=== PATIENT | male | born 1935 | race Caucasian/White ===

== ENCOUNTER 2020-06-27 09:59 | Emergency (ER) | payer MEDICARE, OTHER ==
[~2020-06-27] VITALS: Ht 180.3 cm; Wt 50.8 kg
--- NOTE | 2020-06-27 10:19 | Emergency Department Note ---
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 Mode: [place] Additional Treatment [employer] MANAGER: NONE History limited by: other (dementia ) Onset (how long ago): hour(s) (1) Location: L forehead Quality: ache Radiation: Reports non-radiation Severity: mild Onset quality: sudden Duration (how long): hour(s) (1) Timing of current episode: constant Progression: unchanged Context: Reports trauma/injury (pt is demented, non ambulatory, fell forward from low chair, sent in for CT head); Denies recent illness, Denies recent immobilization Relieving factors: none Exacerbating factors: none Treatments prior to arrival: none Past Medical/Family History Physician Review I have reviewed the patient's past medical and family history. Any updates have been documented here. Past Medical History Recent Fever: No Clinical Suspicion of Infectio: No New/Unexplained Change in Ment: No Review of Systems ROS Narrative Unable to obtain ROS: Unable to obtain due to, other (dementia ) Physical Exam Related Data Allergies: Coded Allergies: No Known Allergies (Unverified , 06/27/20) Triage Vital Signs Vital Signs Date Time Temp Pulse Resp B/P (MAP) Pulse Ox O2 Delivery O2 Flow Rate FiO2 06/27/20 10:08 88 18 145/79 100 Room Air Physical Exam CONSTITUTIONAL Constitutional: Present well-developed, Present well-nourished, Present other (chronically ill) HENT HENT: Present normocephalic, Present other (1cm skin tear to L forehead ) EYES Eyes: Reports PERRL, Reports conjunctivae normal NECK Neck: Present ROM normal, Present supple PULMONARY Pulmonary: Present effort normal, Present breath sounds normal CARDIOVASCULAR Cardiovascular: Present regular rhythm GASTROINTESTINAL Abdominal: Present soft, Present nontender GENITOURINARY SKIN Skin: Present warm, Present other (2cm superficial skin tear to L hand dorsum ) MUSCULOSKELETAL Musculoskeletal: Present other (bilateral LE with contractures, no deformities or pain on palpation ) NEUROLOGICAL Neurological: Present alert, Present other (moving all ext x 4 ) PSYCHOLOGICAL Assessment & Plan Medical Decision Making MDM 85y/o with mechanical fall, will CT head, skin tears repaired by outside facility. Reassessment Reassessment No bleed, no acute abnormality Assessment & Plan Final Impression: (1) Closed head injury (2) Skin tear Depart Disposition: HOME, SELF-CARE Last Vital Signs Date Time Temp Pulse Resp B/P (MAP) Pulse Ox O2 Delivery O2 Flow Rate FiO2 06/27/20 10:08 88 18 145/79 100 Room Air CALVIN OLIVIA MD Jun 27, 2020 10:18
--- OUTSIDE RECORDS SUMMARY | 2020-06-27 10:28 | XMS REPORT | Clinical Summary ---
Author Author [facility] Organization [place] [facility] Address Unknown Phone Unavailable Care Team Providers Care Real Estate Portfolio Manager Name Role Phone Scarlett Meier MD PCP [phone] Allergies Comments Active Allergy Reactions Severity Noted Date Fluoxetine Unknown 05/13/2020 Reaction Simvastatin Unknown 05/13/2020 Reaction Medications End Date Status Medication Sig Dispensed Refills Start Date Active acetaminophen (TYLENOL) Take 650 mg 0 325 MG tablet by mouth every 6 (six) hours as needed for fever. do Active aspirin (ECOTRIN) 81 MG Take 81 mg by 0 enteric coated tablet mouth daily. Active docusate sodium (COLACE) Take 100 mg 0 100 MG capsule by mouth daily. Active tamsulosin (FLOMAX) 0.4 Take 0.4 mg 0 mg capsule by mouth daily with dinner. Active polyethylene glycol Take 17 g by 0 (MIRALAX) 17 gram packet mouth daily. Active lidocaine (XYLOCAINE) 2 % Apply 0 jelly topically 3 (three) times a day. Topically to perineal area Active megestroL (MEGACE) 400 Take 400 mg 0 mg/10 mL (10 mL) by mouth 2 suspension (two) times a day. Active venlafaxine (EFFEXOR) Take 37.5 mg 0 37.5 MG tablet by mouth 2 (two) times a day. Active cholecalciferol, vitamin Take 2,000 0 D3, 50 mcg (2,000 unit) Units by capsule capsule mouth daily. Active cholecalciferol, vitamin Take 1,000 0 D3, 1,000 unit tablet Units by mouth 2 (two) times a day. 05/17/2020 Discontinued (Stop Taking at Discharge) mirtazapine (REMERON) 15 Take 7.5 mg 0 MG tablet by mouth nightly. 05/27/2020 amoxicillin-pot Take 1 tablet 24 tablet 0 05/15/20 2 clavulanate (AUGMENTIN) by mouth 2 0 875-125 mg per tablet (two) times a day for 12 days. 05/24/2020 doxycycline (VIBRAMYCIN) Take 1 0 05/17 100 MG capsule capsule (100 0 mg total) by mouth 2 (two) times a day with meals for 7 days. 06/16/2020 metoprolol tartrate Take 0.5 30 tablet 0 (LOPRESSOR) 25 mg tablet tablets (12.5 0 mg total) by mouth 2 (two) times a day for 30 days. Active Problems Problem Noted Date Urinary tract infection associated with indwelling ur ethral catheter 05/15/2020 Altered mental status 05/13/2020 Encounters Care Team Description Date Type Specialty Siva Marques MD Mougouris, Taso, MD Urinary tract infection associated with indwelling urethral catheter, initial encounter ([facility]) (Primary Dx); Altered mental status, unspecified altered mental status type; Sepsis due to undetermined organism ([facility]); Elevated troponin I level; HELEN (acute kidney injury) ([facility]) 05/13/2020 [facility] Internal Ga dicine - Encounter 05/17/2020 05/13/2020 Travel after 06/27/2019 Social History Date Tobacco Use Types Packs/Day Years Used Unknown If Ever Smoked Tobacco Cessation: Counseling Given: Yes Drinks/Week oz/Week Comments Alcohol Use Defer Sex Assigned at Date Recorded Not on file Industry Job Start Date Occupation Not on file Not on file Not on file Travel End Travel History Travel Start No recent travel history available. Last Filed Vital Signs Reading Time Taken Comments Vital Sign 113/58 05/17/2020 10:29 AM CDT Blood Pressure 74 05/17/2020 2:00 PM CDT Pulse 37 C (98.6 F) 05/17/2020 10:29 AM CDT Temperature 16 05/17/2020 2:00 PM CDT Respiratory Rate 99% 05/17/2020 2:00 PM CDT Oxygen Saturation - - Inhaled Oxygen Concentration 71.7 kg (158 lb 1.6 oz) 05/15/2020 5:48 AM CDT Weight 177.8 cm (5' 10") 05/13/2020 10:18 AM CDT Height 22.68 05/13/2020 10:18 AM CDT Body Mass Index Plan of Treatment Health Maintenance Due Date Last Done Comments DIABETIC RETINAL EYE EXAM 1935 DIABETIC FOOT EXAM 1945 SHINGLES VACCINES (#1) 1985 65+ PNEUMOCOCCAL VACCINE 2000 (1 of 2 - PCV13) INFLUENZA VACCINE 08/04/2020 07/19/2014 Procedures Comments Procedure Name Priority Date/Time Associated Diag nosis CBC HEMOGRAM Routine 05/17/2020 5:25 AM CDT CBC HEMOGRAM Routine 05/16/2020 5:14 AM CDT ESTIMATED GFR Routine 05/15/2020 6:04 AM CDT MAGNESIUM LEVEL Routine 05/15/2020 6:04 AM CDT BASIC METABOLIC PANEL Routine 05/15/2020 6:04 AM CDT HC COMPLETE BLD COUNT Routine 05/15/2020 W/AUTO DIFF 6:04 AM CDT ECG 12-LEAD Routine 05/14/2020 9:33 PM CDT TTE COMPLETE, WO Routine 05/14/2020 CONTRAST, W DOPPLER 12:54 PM CDT (17419) PREALBUMIN LEVEL Routine 05/14/2020 6:00 AM CDT TROPONIN Timed 05/14/2020 6:00 AM CDT ANTI XA, UNFRACTIONATED Timed 05/14/2020 5:00 AM CDT ESTIMATED GFR Routine 05/14/2020 5:00 AM CDT THYROID STIMULATING Routine 05/14/2020 HORMONE 5:00 AM CDT B NATRIURETIC PEPTIDE Routine 05/14/2020 5:00 AM CDT LIPID PANEL Routine 05/14/2020 5:00 AM CDT COMPREHENSIVE METABOLIC Routine 05/14/2020 PANEL 5:00 AM CDT HC COMPLETE BLD COUNT Routine 05/14/2020 W/AUTO DIFF 5:00 AM CDT ECG 12-LEAD Routine 05/14/2020 4:55 AM CDT ANTI XA, UNFRACTIONATED Routine 05/13/2020 9:40 PM CDT TROPONIN Timed 05/13/2020 9:40 PM CDT LACTIC ACID LEVEL, SEPSIS Timed 05/13/2020 - NOW AND REPEAT 2X EVERY 9:40 PM CDT 3 HOURS ECG 12-LEAD Routine 05/13/2020 8:[address] ABDOMEN PELVIS WO STAT 05/13/2020 CONTRAST 5:10 PM CDT URINE CULTURE STAT 05/13/2020 4:53 PM CDT URINALYSIS SCREEN AND STAT 05/13/2020 MICROSCOPY, WITH REFLEX 4:20 PM CDT TO CULTURE COVID-19 QUALITATIVE PCR STAT 05/13/2020 3:34 PM CDT TROPONIN Timed 05/13/2020 3:32 PM CDT LACTIC ACID LEVEL, SEPSIS Timed 05/13/2020 - NOW AND REPEAT 2X EVERY 3:32 PM CDT 3 HOURS VENOUS BLOOD GAS STAT 05/13/2020 1:34 PM CDT BLOOD CULTURE, AEROBIC & Routine 05/13/2020 ANAEROBIC 11:[address] HEAD WO CONTRAST STAT 05/13/2020 11:07 AM CDT XR CHEST 1 VW PORTABLE STAT 05/13/2020 10:47 AM CDT BLOOD CULTURE, AEROBIC & Routine 05/13/2020 ANAEROBIC 10:39 AM CDT ESTIMATED GFR STAT 05/13/2020 10:38 AM CDT COMPREHENSIVE METABOLIC STAT 05/13/2020 PANEL 10:38 AM CDT CREATINE KINASE, TOTAL STAT 05/13/2020 (CPK) 10:38 AM CDT TROPONIN STAT 05/13/2020 10:38 AM CDT B NATRIURETIC PEPTIDE STAT 05/13/2020 10:38 AM CDT LACTIC ACID LEVEL, SEPSIS STAT 05/13/2020 - NOW AND REPEAT 2X EVERY 10:38 AM CDT 3 HOURS MAGNESIUM LEVEL STAT 05/13/2020 10:38 AM CDT PHOSPHORUS LEVEL STAT 05/13/2020 10:38 AM CDT PARTIAL THROMBOPLASTIN STAT 05/13/2020 TIME (PTT) 10:38 AM CDT PROTHROMBIN TIME WITH INR STAT 05/13/2020 10:38 AM CDT HC COMPLETE BLD COUNT STAT 05/13/2020 W/AUTO DIFF 10:38 AM CDT ECG ED PRELIMINARY Routine 05/13/2020 INTERPRETATION 10:30 AM CDT [facility], E/M Routine 05/13/2020 30-74 MINUTES 10:30 AM CDT ECG 12-LEAD STAT 05/13/2020 10:19 AM CDT after 06/27/2019 Results * CBC hemogram (05/17/2020 5:25 AM CDT) Only the most recent of 2 results within the time period is included. WBC 6.72 4.50 - 11.00 k/uL [facility] RBC 3.34 (L) 4.40 - 6.00 m/uL [facility] HGB 10.1 (L) 14.0 - 18.0 g/dL [facility] HCT 32.1 (L) 41.0 - 51.0 % [facility] MCV 96.1 82.0 - 100.0 fL [facility] MCH 30.2 27.0 - 34.0 pg [facility] MCHC 31.5 31.0 - 37.0 g/dL [facility] RDW - SD 50.7 37.0 - 55.0 fL [facility] MPV 9.9 8.8 - 13.2 fL [facility] Platelet count 163 150 - 400 k/uL [facility] Nucleated RBC 0.00 /100 WBC [facility] Specimen Blood Performing Organization Address City/[facility] Ph one Number [facility] DE[place]MENT OF [id number] [place] [address] [place] [address] PATHOLOGY AND GENOMIC MEDICINE [address] * Estimated GFR (05/15/2020 6:04 AM CDT) Only the most recent of 3 results within the time period is included. Pathologist [facility] Estimated GFR 86 mL/min/1.73 m2 [facility] Comment: [facility] Interpretation G1 >=90 Normal or high G2 60-89 Mildly decreased G3a 45-59 Mildly to moderately decreased G3b 30-44 Moderately to severely decreased G4 15-29 Severely decreased G5 <15 Kidney failure The eGFR was calculated using the Chronic Kidney Disease Epidemiology Collaboration (CKD-EPI) equation. Interpretation is based on recommendations of the National Kidney Foundation-Kidney Disease Outcomes Quality Initiative (NKF-KDOQI) published in 2014. Specimen Performing Organization Address [facility] Ph one Number [facility] DEPARTMENT OF [address] [place] [address] [place] [address] PATHOLOGY AND GENOMIC MEDICINE [address] * CBC with platelet and differential (05/15/2020 6:04 AM CDT) Only the most recent of 3 results within the time period is included. WBC 8.34 4.50 - 11.00 k/uL [facility] RBC 3.60 (L) 4.40 - 6.00 m/uL [facility] HGB 10.8 (L) 14.0 - 18.0 g/dL [facility] HCT 34.7 (L) 41.0 - 51.0 % [facility] MCV 96.4 82.0 - 100.0 fL [facility] MCH 30.0 27.0 - 34.0 pg [facility] MCHC 31.1 31.0 - 37.0 g/dL [facility] RDW - SD 49.9 37.0 - 55.0 fL [facility] MPV 10.8 8.8 - 13.2 fL [facility] Platelet count 157 150 - 400 k/uL [facility] Nucleated RBC 0.00 /100 WBC [facility] Neutrophils 83.5 (H) 39.0 - 69.0 % [facility] Lymphocytes 6.8 (L) 25.0 - 45.0 % [facility] Monocytes 7.7 0.0 - 10.0 % [facility] Eosinophils 0.7 0.0 - 5.0 % [facility] Basophils 0.2 0.0 - 1.0 % [facility] Specimen Blood Performing Organization Address [facility] Ph one Number [facility] DEPARTMENT OF [address] [place] [address] [place] [address] PATHOLOGY AND GENOMIC MEDICINE [address] * Magnesium level (05/15/2020 6:04 AM CDT) Only the most recent of 2 results within the time period is included. Pathologist [facility] Magnesium 2.0 1.6 - 2.4 mg/dL [facility] Specimen Blood Performing Organization Address City/[facility] Ph one Number [facility] DEPARTMENT OF [address] [place] [address] [place] [address] PATHOLOGY AND GENOMIC MEDICINE [address] * Basic metabolic panel (05/15/2020 6:04 AM CDT) Sodium 141 135 - 148 mEq/L [facility] Potassium 3.1 (L) 3.5 - 5.0 mEq/L [facility] Chloride 113 (H) 98 - 112 mEq/L [facility] CO2 15 (L) 24 - 31 mEq/L [facility] Anion gap 13@ANIO 7 - 15 mEq/L [facility] BUN 44 (H) 8 - 23 mg/dL [facility] Creatinine 0.70 0.70 - 1.20 mg/dL [facility] Glucose 154 (H) 65 - 99 mg/dL [facility] Calcium 10.9 (H) 8.8 - 10.2 mg/dL [facility] Specimen Blood Performing Organization Address [facility] [place] [address] [place] [address] PATHOLOGY AND GENOMIC MEDICINE [facility] [address] [place] [address] [facility] * ECG 12 lead (05/14/2020 9:33 PM CDT) Only the most recent of 4 results within the time period is included. Ventricular 64 [facility] MUSE rate Atrial rate 64 [facility] MN interval 158 [facility] QRSD interval 98 [facility] QT interval 418 [facility] QTC interval 431 [facility] MUSE P axis 1 70 [facility] MUSE QRS axis 1 -43 [facility] MUSE T wave axis 29 [facility] EKG impression Normal sinus rhythm-Left axis [facility] MUS E deviation-Possible Lateral infarct (cited on or before 14-MAY-2020)-Abnormal ECG-In automated comparison with ECG of 14-MAY-2020 04:55,-Nonspecific T wave abnormality, worse in Anterior leads- Specimen Narrative Performed At This result has an attachment that is n ot available. Performing Organization Address [facility] Ph one Number [facility] MUSE [address] [place] [address] * Transthoracic Echocardiogram Complete, (w Contrast, Strain and 3D if needed) (05/14/2020 12:54 PM CDT) AoV Area, Vmax 3.85 cm2 [facility] AoV Area, VTI 3.84 cm2 [facility] AoV Mean PG 1.18 mmHg [facility] AoV Peak PG 3.05 mmHg [facility] AoV Vmax 0.87 m/s [facility] AoV VTI 0.16 m [facility] IVS,d 1.10 cm [facility] LV,d 3.88 cm [facility] LV EF,A2C 53.06 % [facility] LV EF,A4C 48.90 % [facility] LV EF,BP 47.73 % [facility] Slava Wilson,d A2C 6.91 cm [facility] Slava Wilson,d A4C 6.75 cm [facility] Slava Wilson,s A2C 5.10 cm [facility] Slava Wilson,s A4C 5.97 cm [facility] LV,s 3.03 cm [facility] LV SV,A2C 31.61 % [facility] LV SV,A4C 31.26 % [facility] LV Vol,d A2C 59.56 mL [facility] LV Vol,d A4C 63.93 ml [facility] LV Vol,d BP 62.33 ml [facility] LV Vol,s A2C 27.96 mL [facility] LV Vol,s A4C 32.67 ml [facility] LV Vol,s BP 32.58 nl [facility] LVOT Diam,S 2.33 cm [facility] LVOT Vmax 0.79 m/s [facility] LVOT VTI 0.15 m [facility] LVPWD,d 1.21 cm [facility] MV E A ratio 0.54 [facility] MR Vmax 3.30 m/s [facility] MR peak grad 20.84 mmHg [facility] E wave 261.45 msec [facility] decelartion time MV Peak A Joaquin 1.43 m/s [facility] MV valve area p 3.45 cm2 [facility] 1/2 method MV Peak E Joaquin 0.77 m/s [facility] MV stenosis 63.84 ms [facility] pressure 1/2 time AV LVOT peak 2.49 mmHg [facility] gradient LV SYS VOL 35.80 ml [facility] LV FLOYD VOL 64.94 ml [facility] LA area s A4C 13.07 cm2 [facility] LV SV Teich 2D 29.13 ml [facility] LVOT SI 32.21 ml/m2 [facility] AoV Cusp sep 1.96 [facility] AoV Vmn 0.48 [facility] IVS s 2D 1.20 [facility] LA Ao Ratio 1.54 [facility] Mmode LVOT Vmn 0.44 [facility] Pt Size 182.88 [facility] Pt Wt 74.84 [facility] PV AT 85.63 msec [facility] LVOT mean grad 1.05 mmHg [facility] LVPW s PLAX 1.42 cm [facility] MV Decel slope 2.93 m/s2 [facility] LA Vol MOD A4C 31.19 ml [facility] Velocity Ratio 0.91 m/s [facility] (V1/V2) EF 44.87 % [facility] E/A ratio 0.54 [facility] LVOT area 4.26 cm2 [facility] LA Vol 4C 31.00 ml [facility] LA diam s 4.60 cm [facility] Aortic Root 2.97 cm [facility] D E excurs 0.80 [facility] E f slope 0.03 [facility] E prime lat 0.06 [facility] E celeste sept 0.03 [facility] PV acc T slope 5.90 [facility] HERNÁNDEZ BP EF 48.00 % [facility] LA VOL 2C 30.00 ml [facility] Specimen Narrative Performed At [facility] Left ventricular systolic function i s normal. Left Ventricular ejection fraction i s 55 - 60%. Spectral Doppler shows impaired rela xation pattern of left ventricular diastolic filling. Stage II diastolic dysfunction. Performing Organization Address City/State/[facility] Ph one Number [facility] [address] [place] [address], * Troponin (05/14/2020 6:00 AM CDT) Only the most recent of 4 results within the time period is included. Troponin 0.093 (H) 0.000 - 0.040 ng/mL [facility] Comment: [facility] In patients suspected of [facility] having a myocardial infarction, along with all other appropriate clinical measures and actions including ECG and other diagnostics as appropriate, measure Ultra TnI at 0 hrs and at 3 hrs. Myocardial infarction VERY LIKELY The 0 hr TnI level is > 0.10 ng/mL Myocardial infarction LIKELY The 0 hr TnI level is > 0.04 ng/mL and 3 hr level is increased or decreased by at least 0.020 ng/mL Myocardial infarction VERY UNLIKELY Both the 0 hr and 3 hr TnI levels <= 0.04 ng/mL(within normal limits) OR 0 hr is > 0.04 ng/mL and 3 hr is increased OR decreased by less than 0.020 ng/mL Specimen Blood Performing Organization Address [facility] one Number [facility] DEPARTMENT OF [address] [place] [address] [place] [address] PATHOLOGY AND GENOMIC MEDICINE [address] * Prealbumin level (05/14/2020 6:00 AM CDT) Pathologist [facility] Prealbumin 10 (L) 16 - 32 mg/dL [facility] Specimen Serum Performing Organization [facility] one Number [facility] DEPARTMENT OF [address] [place] [address] PATHOLOGY AND GENOMIC MEDICINE [address] * Anti Xa, unfractionated (05/14/2020 5:00 AM CDT) Only the most recent of 2 results within the time period is included. Pathologist [facility] Anti Xa, 0.37Comment: Therapeutic 0.30 - 0.70 U/mL KATLYN SVETA unfractionated Range: 0.30 - 0.70 U/mL [facility] Specimen Blood Performing Organization Address [facility] one Number [facility] DEPARTMENT OF [address] [place] [address]. [place] [address] PATHOLOGY AND GENOMIC MEDICINE [address] * Thyroid stimulating hormone (05/14/2020 5:00 AM CDT) TSH 0.60 0.27 - 4.20 uIU/mL [facility] Specimen Blood Performing Organization [facility] Ph one Number [facility] DEPARTMENT OF [address] [place] [address]. [place] [address] PATHOLOGY AND GENOMIC MEDICINE [address] [place] [address] [facility] * B natriuretic peptide (05/14/2020 5:00 AM CDT) Only the most recent of 2 results within the time period is included. BNP 100 0 - 100 pg/mL [facility] Specimen Blood Performing Organization Address [facility] Ph one Number [facility] [place] [id number] [address] [address] [place] [address] PATHOLOGY AND GENOMIC MEDICINE [facility] [address] [place] [address] [facility] * Lipid panel (05/14/2020 5:00 AM CDT) Cholesterol 197 <200 mg/dL [facility] Triglycerides 332 (H) <150 mg/dL [facility] HDL cholesterol 15 (L) >40 mg/dL [facility] LDL cholesterol 82Comment: Result obtained by <100 mg/dL [facility] direct LDL measurement [facility] Lipid panel [facility] interpretation Comment: [facility] Total Cholesterol (mg/dL) [facility] <200 Desirable 200-239 Borderline-high >=240 High Triglycerides (mg/dL) <150 Normal 150-199 Borderline-high 200-499 High >=500 Very high HDL Cholesterol (mg/dL) <40 Low (male) <40 Low (female) LDL Cholesterol (mg/dL) <100 Optimal 100-129 Near or above optimal 130-159 Borderline-high 160-189 High >=190 Very high Risk Catergories that modify LDL goals. Risk Catergories LDL goal (mg/dL) CHD and CHD risk equivalent <100 (10-year risk >20%) Multiple (2+) risk factors <130 (10-year risk =<20%) 0-1 risk factors <160 (<10-year risk) Defining levels of lipids in metabolic syndrome Triglycerides >=150 mg/dL HDL Cholesterol Men <40 mg/dL Women <40 mg/dL Non-HDL cholesterol is a second target for therapy in persons with high triglycerides (>=200 mg/dL) Specimen Blood Performing Organization Address City/[facility] Ph one Number [facility] DEPARTMENT OF [address] [place] [address] [place] [address] PATHOLOGY AND GENOMIC MEDICINE [facility] [id number] [place] [address] * Comprehensive metabolic panel (05/14/2020 5:00 AM CDT) Only the most recent of 2 results within the time period is included. Sodium 139 135 - 148 mEq/L [facility] Potassium 3.2 (L) 3.5 - 5.0 mEq/L [facility] Chloride 108 98 - 112 mEq/L [facility] CO2 17 (L) 24 - 31 mEq/L [facility] Anion gap 14@ANIO 7 - 15 mEq/L [facility] BUN 66 (H) 8 - 23 mg/dL [facility] Creatinine 1.20 0.70 - 1.20 mg/dL [facility] Glucose 175 (H) 65 - 99 mg/dL [facility] Calcium 11.3 (H) 8.8 - 10.2 mg/dL [facility] Protein 6.3 6.3 - 8.3 g/dL [facility] Comment: [facility] 4.6-7.0 g/dL 1 week 4.4-7.6 g/dL 7 months-1year 5.1-7.3 g/dL 1-2 years 5.6-7.5 g/dL >3 years 6.0-8.0 g/dL 18-150 6.3-8.3 g/dL Albumin 2.9 (L) 3.5 - 5.0 g/dL [facility] A/G ratio 0.9 0.7 - 3.8 [facility] Alkaline 60 40 - 129 U/L [facility] phosphatase [facility] AST 13 10 - 50 U/L [facility] ALT 15 5 - 50 U/L [facility] Total bilirubin 0.3 0.0 - 1.2 mg/dL [facility] Specimen Blood Performing Organization Address City/State/Zipcode [place] [address] [address] [place] [place] [address] PATHOLOGY AND GENOMIC MEDICINE [facility] [address] [place] [id number] [facility] * Lactic acid level, SEPSIS - Now and repeat 2x every 3 hours (05/13/2020 9:40 PM CDT) Only the most recent of 3 results within the time period is included. Lactic acid 2.3 (H) 0.5 - 2.2 mmol/L [facility] Specimen Blood Performing Organization Address City/State/Zipcode Ph one Number [facility] [place] [address] [address] [address] PATHOLOGY AND GENOMIC MEDICINE [facility] [address] [place] [address] [facility] * CT Abdomen Pelvis Wo Contrast (05/13/2020 5:10 PM CDT) Specimen Narrative Performed At EXAMINATION: CT ABDOMEN PELVIS WO CONTRAST RADI ANT CLINICAL HISTORY: AMS chronic velázquez Cr 2.7 TECHNIQUE: Multiple axial images of t he abdomen and pelvis were obtained without intravenous administration of i odinated contrast. Sagittal and coronal computerized reformatted images were al so obtained. The lack of intravenous contrast reduces the sensitivity of detecting solid organ di sease. CT imaging was performed with iterative reconstruction techniques and/or automated exposure control to reduce ra diation dose. COMPARISON: None. FINDINGS: Suboptimal solid organ evaluation witho ut contrast. Liver and spleen are normal in size. 2.7 cm cyst in the left lobe o f the liver. Cholelithiasis. No nephrolithiasis or significant hydro nephrosis. Mild fullness of the renal pelvis bilaterally is nonspecific. Uret ers are normal in course and caliber. Velázquez catheter is in the bladder. There is mild increased station around the Velázquez balloon and catheter tip. There i s also layering hyperdensity in the bladder lumen. No signs of bowel obstruction or inflam mation. No free fluid or free air. Aorta is normal in caliber. IVC filter in place. IMPRESSION: 1.No evidence of acute process. 2.Mild encrustation of the Velázquez cathet er tip/balloon. Layering hyperdensity in the bladder may be contrast (if adminis tered recently), milk of calcium and/or tiny stones. 3.Cholelithiasis. [id number] Procedure Note Interface, Radiology Results Incoming - 05/13/2020 5:21 PM CDT EXAMINATION: CT ABDOMEN PELVIS WO CONTRAST CLINICAL HISTORY: AMS chronic velázquez Cr 2.7 TECHNIQUE: Multiple axial images of the abdomen and pelvis were obtained without intravenous administration of iodinated contrast. Sagittal and coronal computerized reformatted images were also obtained. The lack of intravenous contrast reduces the sensitivity of detecting solid organ disease. CT imaging was performed with iterative reconstruction techniques and/or automated exposure control to reduce radiation dose. COMPARISON: None. FINDINGS: Suboptimal solid organ evaluation without contrast. Liver and spleen are normal in size. 2.7 cm cyst in the left lobe of the liver. Cholelithiasis. No nephrolithiasis or significant hydronephrosis. Mild fullness of the renal pelvis bilaterally is nonspecific. Ureters are normal in course and caliber. Velázquez catheter is in the bladder. There is mild increased station around the Velázquez balloon and catheter tip. There is also layering hyperdensity in the bladder lumen. No signs of bowel obstruction or inflammation. No free fluid or free air. Aorta is normal in caliber. IVC filter in place. IMPRESSION: 1.No evidence of acute process. 2.Mild encrustation of the Velázquez cathete r tip/balloon. Layering hyperdensity in the bladder may be contrast (if administered recently), milk of calcium and/or tiny stones. 3.Cholelithiasis. [id number] Performing Organization Address City/State/[facility] Ph one Number [facility] [address] [place] [address] * Urine culture (05/13/2020 4:53 PM CDT) Urine culture Klebsiella pneumoniae PAULO isolate colony count undetermined, ROMAN CATHOLIC probably due to inhibiting HOSPITAL substance. The performance characteristics of this assay on this isolate were validated by the Microbiology Laboratory at [facility]. This source has not been approved by the U.S. Food and Drug Administration. The results are not intended to be used as the sole means for clinical diagnosis or patient management. The Microbiology Laboratory is authorized under the clinical Laboratory Improvement Amendments of 1988 (CLIA-88) to perform high complexity testing. (A) Comment: Specimen Information Specimen Source: Urine Specimen Site: Clean catch Urine culture Staphylococcus, coagulase PAULO isolate negative [facility]AN CATHOL[facility] 10-5 cfu/ml HOSPITAL (A) Specimen Urine Antibiotic Method Susceptibility Organism Ampicillin DARIN >16 mcg/mL: Resistant Klebsiella pneumoniae Amoxicillin/Clavulanate DARIN <=2/1 mcg/mL: Susceptible Klebsiella pneumoniae Amikacin DARIN <=4 mcg/mL: Susceptible Klebsiella pneumoniae Aztreonam DARIN <=1 mcg/mL: Susceptible Klebsiella pneumoniae Ceftazidime DARIN <=0.5 mcg/mL: Susceptible Klebsiella pneumoniae Ciprofloxacin DARIN <=0.5 mcg/mL: Susceptible Klebsiella pneumoniae Ceftriaxone DARIN <=0.5 mcg/mL: Susceptible Klebsiella pneumoniae Cefuroxime Sodium DARIN <=4 mcg/mL: Susceptible Klebsiella pneumoniae Cefazolin DARIN <=1 mcg/mL: Susceptible Klebsiella pneumoniae Cefepime DARIN <=0.5 mcg/mL: Susceptible Klebsiella pneumoniae Nitrofurantoin DARIN 64 mcg/mL: Resistant Klebsiella pneumoniae Cefoxitin DARIN <=4 mcg/mL: Susceptible Klebsiella pneumoniae Gentamicin DARIN 1 mcg/mL: Susceptible Klebsiella pneumoniae Imipenem DARIN <=0.25 mcg/mL: Susceptible Klebsiella pneumoniae Levofloxacin DARIN <=1 mcg/mL: Susceptible Klebsiella pneumoniae Meropenem DARIN <=0.125 mcg/mL: Susceptible Klebsiella pneumoniae Tobramycin DARIN 1 mcg/mL: Susceptible Klebsiella pneumoniae Ampicillin/Sulbactam DARIN 8/4 mcg/mL: Susceptible Klebsiella pneumoniae Trimethoprim/Sulfamethoxazole DARIN <=0.5/9.5 mcg/mL: Susceptible Klebsiella pneumoniae Tetracycline DARIN <=1 mcg/mL: Susceptible Klebsiella pneumoniae Piperacillin/Tazobactam DARIN 4/4 mcg/mL: Susceptible Klebsiella pneumoniae Ertapenem DARIN <=0.125 mcg/mL: Susceptible Klebsiella pneumoniae Tigecycline DARIN <=0.5 mcg/mL: Susceptible Klebsiella pneumoniae Ampicillin DARIN mcg/mL: Resistant Staphylococcus coagulase negative Clindamycin DARIN <=0.5 mcg/mL: Resistant Staphylococcus coagulase negative Doxycycline DARIN 2 mcg/mL: Susceptible Staphylococcus coagulase negative Erythromycin DARIN 1 mcg/mL: Resistant Staphylococcus coagulase negative Nitrofurantoin DARIN <=16 mcg/mL: Susceptible Staphylococcus coagulase negative Linezolid DARIN 2 mcg/mL: Susceptible Staphylococcus coagulase negative Oxacillin DARIN >1 mcg/mL: Resistant Staphylococcus coagulase negative Penicillin G DARIN mcg/mL: Resistant Staphylococcus coagulase negative Rifampin DARIN <=0.25 mcg/mL: Susceptible Staphylococcus coagulase negative Tetracycline DARIN 2 mcg/mL: Susceptible Staphylococcus coagulase negative Vancomycin DARIN 1 mcg/mL: Susceptible Staphylococcus coagulase negative Ciprofloxacin DARIN mcg/mL: Resistant Staphylococcus coagulase negative Trimethoprim/Sulfamethoxazole DARIN >2/38 mcg/mL: Resistant Staphylococcus coagulase negative Performing Organization Address City/State/Zipcode Ph one Number [facility] DEPARTMENT OF [address] [place] [address] PATHOLOGY AND GENOMIC MEDICINE [address], [place] [id number] [place] [address] * Urinalysis screen and microscopy, with reflex to culture (05/13/2020 4:20 PM CDT) Specimen site Clean catch [facility] Color, UA Airam [facility] Appearance, UA Cloudy [facility] Specific 1.017 1.001 - 1.035 [place] gravity, UA [facility] pH, UA 6.0 5.0 - 8.5 [facility] Protein, UA 2+ (A) Negative [facility] Glucose, UA Negative Negative [facility] Ketones, UA Negative Negative [facility] Bilirubin, UA Negative Negative [facility] Blood, UA Large (A) Negative [facility] Nitrite, UA Negative Negative [facility] Urobilinogen, Negative <2.0 [facility] Leukocyte Large (A) Negative [facility] esterase, [facility] Epithelial None seen Few /HPF [facility] cells, [facility] WBC, UA 61-80 (H) 0 - 1 /HPF [facility] RBC, UA 21-40 (H) 0 - 5 /HPF [facility] Bacteria, UA Many (A) None seen [facility] Yeast, UA None seen [facility] Yeast with None seen [facility] Specimen Urine Performing Organization Address City/[facility] Ph one Number [facility] [place] [address] [address] [place], [place] [address] PATHOLOGY AND GENOMIC MEDICINE [facility] [address] [place] [address] [facility] * COVID-19 qualitative PCR (05/13/2020 3:34 PM CDT) Interpretation Negative results do not PAR[facility] preclude 2019-nCoV infection [facility] and should not be used as the HOSPITAL sole basis for treatment or other patient management decisions. Negative results must be combined with clinical observations, patient history, and epidemiological information. COVID-19 Not-Detected Not-Detected [facility] qualitative PCR [facility] COVID-19 See link below for PDF Lab [facility] qualitative PCR ReportComment: Case Number: ROMAN CATHOLIC [id number] HOSPITAL Specimen Nasopharyngeal swab Performing Organization Address City/State/[facility] Ph one Number [facility] DEPARTMENT OF [address] [place] [address] PATHOLOGY AND GENOMIC MEDICINE [facility] [address] [place] [address] [facility] * Venous blood gas (05/13/2020 1:34 PM CDT) pH, venous 7.32 7.32 - 7.42 [facility] pCO2, venous 38 (L) 45 - 51 mmHg [facility] pO2, venous 180 (H) 25 - 40 mmHg [facility] Base excess, -6 (L) -2 - 2 meq/L [facility] O2 saturation, 20 (L) 40 - 70 % [facility] Bicarbonate, 17.9 (L) 21.0 - 28.0 mmol/L [facility] FiO2, inspired Unknown % [facility] O2% [facility] Specimen Blood Performing Organization Address [facility] Ph one Number [facility] [place] [address] [place] [address] PATHOLOGY AND GENOMIC MEDICINE [facility] [address] [place] [address] [facility] * Blood culture, aerobic & anaerobic (05/13/2020 11:08 AM CDT) Only the most recent of 2 results within the time period is included. Blood culture Staphylococcus epidermidis [facility] isolate Aer/Lacy bottles: ROMAN CATHOLIC () [facility] Comment: Specimen Information Specimen Source: Blood Specimen Site: Arm, right Specimen Blood - Arm, right Antibiotic Method Susceptibility Organism Ampicillin DARIN mcg/mL: Resistant Staphylococcus epidermidis Chloramphenicol DARIN mcg/mL: Susceptible Staphylococcus epidermidis Clindamycin DARIN <=0.5 mcg/mL: Susceptible Staphylococcus epidermidis Doxycycline DARIN 1 mcg/mL: Susceptible Staphylococcus epidermidis Erythromycin DARIN 0.5 mcg/mL: Susceptible Staphylococcus epidermidis Linezolid DARIN 4 mcg/mL: Susceptible Staphylococcus epidermidis Minocycline DARIN 2 mcg/mL: Susceptible Staphylococcus epidermidis Oxacillin DARIN >1 mcg/mL: Resistant Staphylococcus epidermidis Penicillin G DARIN >1 mcg/mL: Resistant Staphylococcus epidermidis Tetracycline DARIN 2 mcg/mL: Susceptible Staphylococcus epidermidis Vancomycin DARIN 1 mcg/mL: Susceptible Staphylococcus epidermidis Ciprofloxacin DARIN mcg/mL: Resistant Staphylococcus epidermidis Trimethoprim/Sulfamethoxazole DARIN >2/38 mcg/mL: Resistant Staphylococcus epidermidis Performing Organization Address City/[facility] Ph one Number [facility] DEPARTMENT OF [address] [place] [address] PATHOLOGY AND GENOMIC MEDICINE [place] [facility] [address] [place] [address] HOSPITAL * CT Head Wo Contrast (05/13/2020 11:07 AM CDT) Specimen Narrative Performed At EXAMINATION: CT HEAD WO CONTRAST RADIANT CLINICAL HISTORY: AMS COMPARISON: None. TECHNIQUE: Noncontrast head CT performe d using radiation dose reduction techniques. Technical factors are cynthia luated and adjusted to ensure appropriate moderation of exposure. Automated dos e management technology is applied to adjust radiation exposure while achieving a diagnostic quality im age. FINDINGS: No evidence of acute intracranial hemor rhage, brain parenchymal mass, mass effect, midline shift, or acute infarct . The ventricles are mild to moderately e nlarged likely owing to central predominance of moderate cerebral volum e loss. Mild cerebellar volume loss. Dilation of the extra-axial space withi n the left middle cranial fossa with smooth remodeling of the adjacent calvaria, likely secondary to a small underlying arachnoid cyst spanning approximately 1.9 x 2.5 cm. Ba alcira cisterns are clear. Calvarium is intact. Arteriosclerosis of the caverno us and paraclinoid internal carotid arteries. Status post bilateral lens extractions. Small mucous retention cysts in the right maxillary sinus. Mastoid air cell s are clear. IMPRESSION: 1. No CT evidence of acute intracranial abnormality. [id number] Procedure Note Interface, Radiology Results Incoming - 05/13/2020 11:14 AM CDT EXAMINATION: CT HEAD WO CONTRAST CLINICAL HISTORY: AMS COMPARISON: None. TECHNIQUE: Noncontrast head CT performed using radiation dose reduction techniques. Technical factors are evaluated and adjusted to ensure appropriate moderation of exposure. Automated dose management technology is applied to adjust radiation exposure while achieving a diagnostic quality image. FINDINGS: No evidence of acute intracranial hemorrhage, brain parenchymal mass, mass effect, midline shift, or acute infarct. The ventricles are mild to moderately enlarged likely owing to central predominance of moderate cerebral volume loss. Mild cerebellar volume loss. Dilation of the extra-axial space within the left middle cranial fossa with smooth remodeling of the adjacent calvaria, likely secondary to a small underlying arachnoid cyst spanning approximately 1.9 x 2.5 cm. Basal cisterns are clear. Calvarium is intact. Arteriosclerosis of the cavernous and paraclinoid internal carotid arteries. Status post bilateral lens extractions. Small mucous retention cysts in the right maxillary sinus. Mastoid air cells are clear. IMPRESSION: 1. No CT evidence of acute intracranial abnormality. [id number] Performing Organization Address [facility] one Number [facility] [address] [place] [address] * XR Chest 1 Vw Portable (05/13/2020 10:47 AM CDT) Specimen Narrative Performed At EXAMINATION: [facility]ST 1 [facility]: SOB COMPARISON: None. FINDINGS: One view of the chest demonstrates no rmal cardiomediastinal silhouette. Pulmonary vasculature is within normal limits. Postsurgical change of median sternotomy is noted. No consolidation or pleural effusion is seen. There is no evidence of pneumothorax. Regional osseous structures is unremark able. IMPRESSION: No radiographic evidence of acute cardi opulmonary process or active disease of the chest. [id number] Procedure Note Interface, Radiology Results Incoming - 05/13/2020 10:53 AM CDT EXAMINATION: XR CHEST 1 VW PORTABLE CLINICAL HISTORY: SOB COMPARISON: None. FINDINGS: One view of the chest demonstrates normal cardiomediastinal silhouette. Pulmonary vasculature is within normal limits. Postsurgical change of median sternotomy is noted. No consolidation or pleural effusion is seen. There is no evidence of pneumothorax. Regional osseous structures is unremarkable. IMPRESSION: No radiographic evidence of acute cardiopulmonary process or active disease of the chest. [id number] Performing Organization Address [facility] one Number [facility] [address] [place] [address] * Partial thromboplastin time, activated (05/13/2020 10:38 AM CDT) PTT 32.9 23.0 - 36.0 sec [facility] Comment: ROMAN CATHOLIC CLEAR PTT therapeutic range for [facility] unfractionated heparin is 61.0-112.0 seconds which corresponds to Anti-Xa 0.3-0.7 U/ml. Specimen Blood Performing Organization Address [facility] [place] [address] [address] [place], [place] [address] PATHOLOGY AND GENOMIC MEDICINE [place] ROMAN CATHOLIC CLEAR [address] [place] [address] [facility] * Prothrombin time with INR (05/13/2020 10:38 AM CDT) Prothrombin 15.5 (H) 11.5 - 14.5 sec [facility] INR 1.2 [facility] Comment: ROMAN CATHOLIC HINCKLEY The International Normalized [facility] Ratio (INR) is a therapeutic monitoring tool for patients who are stable on oral anticoagulant therapy. An INR of 2.0-3.0 is suggested for deep vein thrombosis/pulmonary embolism. Specimen Blood Performing Organization Address [facility] one Number [facility] DEPARTMENT OF [address] [place] [address] [place] [address] PATHOLOGY AND GENOMIC MEDICINE [address] * Phosphorus level (05/13/2020 10:38 AM CDT) Phosphorus 5.1 (H) 2.4 - 4.5 mg/dL [facility] Specimen Blood Performing Organization Address [facility] one Number [facility] DEPARTMENT OF [address] [place] [address] [place] [address] PATHOLOGY AND GENOMIC MEDICINE [address] * Creatine kinase, total (CPK) (05/13/2020 10:38 AM CDT) Creatine kinase 22 (L) 39 - 308 U/L [facility] Specimen Blood Performing Organization Address [facility] one Number [facility] [place] [id number] [place] [address] [place] [address] PATHOLOGY AND [facility] MEDICINE [address] * ECG ED Preliminary Interpretation - Not an Order (05/13/2020 10:30 AM CDT) Narrative Performed At Siva Marques MD 05/13/2020 8:38 PM ECG ED Preliminary Interpretation - Not an Order Performed by: Siva Marques MD Authorized by: Siva Marquse MD ECG reviewed by ED Physician in the abs ence of a forester aide: yes Interpretation: Interpretation: normal Rate: ECG rate: 109 ECG rate assessment: tachycardic Rhythm: Rhythm: sinus tachycardia Ectopy: Ectopy: PAC QRS: QRS axis: Left QRS intervals: Normal Conduction: Conduction: normal ST segments: ST segments: Non-specific T waves: T waves: non-specific Other findings: Other findings: prolonged qTc interva l * CRITICAL CARE (05/13/2020 10:30 AM CDT) Narrative Performed At Siva Marques MD 05/13/2020 8:38 PM Critical Care Performed by: Siva Marques MD Authorized by: Siva Marques MD Critical care provider statement: Critical care time (minutes): 35 Critical care time was exclusive of: Separately billable procedures and treating other patients and teaching ti me Critical care was necessary to treat or prevent imminent or life-threatening deterioration of the f ollowing conditions: Cardiac failure and sepsis Critical care was time spent personal ly by me on the following activities: Development of treatment plan with patient or surrogate, evaluation of patient's response to ze atment, examination of patient, obtaining history from patient or surro gate, ordering and performing treatments and interventions, ordering and review of laboratory studies, ordering and review of radiographic valerie dies, pulse oximetry and re-evaluation of patient's condition Hugh 'yes' if you are taking over cri tical care for this patient from another provider.: no after 06/27/2019 Insurance Type Payer Benefit Subscriber ID Effective Phone Address Plan / Dates Group Medicare MEDICARE MEDICARE xxxxxxxxxxx [id number] GERAL[place]INE, PART A AND resent [place] B Indemnity [facility] xxxxxxxxx 2020-P HEALTHCARE resent INDEMNITY Advance Directives For more information, please contact: [phone] Patient Rn Gynecology Explanation Type Date Recorded Advance Directives, 05/13/2020 2:56 PM Living Will and Medical Power of Network Support Analyst Date Inactivated Comments Code Status Date Activated 05/17/2020 6:29 PM Full Code 05/13/2020 6:06 PM Code Status decision reached by: Patient 05/13/2020 6:06 PM Full Code 05/13/2020 6:06 PM Code Status decision reached by: Patient by means of Directive
--- OUTSIDE RECORDS SUMMARY | 2020-06-27 10:28 | XMS REPORT | Continuity of Care Document ---
Author Author [facility] t Organization [facility] Address [address] [place] [address] Phone Unavailable Care Team Providers Care Candy Catcher Name Role Phone Hardeep ANGUIANO, Aliyah Pantoja PCP [phone] Fco Marques MD, Siva Attphys Rolando ANGUIANO, Alka Attphys [employer] Adm[facility] Unavailable Payers Payer Name Policy Type Policy Number Effective Date Expiration Date S binu MEDICAREMEDICARE PART A AND Bxxxxxxxxxxx1999-PresentHOUYolis STOLL NCMedicare xxxxxxxxxxx 2000 00:00:00 Eb Mustafa [facility] INDEMNITYxxxxxxxxx3-PresentIndemnity xxxxxxxxx 2020 00:00:00 Eb Mustafa Problems Condition Name Condition Details Condition Category Status Onset Date Resolution Date Last Treatment Date Treating Clinician Comments Source Urinary tract infection associated with indwelling ure thral catheter Urinary tract infection associated with indwelling urethral catheter Disease Active 2020-05-15 00:00:00 Eb Mustafa Altered mental status Altered mental status Disease Active 00:00:00 Eb [place] t Adjustment disorder with depressed mood Adjustment Disorder with Depressed Mood Problem Active 2020-02-01 00:00:00 [facility] Constipation Constipation Problem Active 2020-02-01 00:00:00 [facility] Loss of appetite Loss of Appetite Problem Active 2020-02-01 00:00:00 [facility] Peripheral arterial occlusive disease Peripheral Arterial Oc clusive Disease Problem Active 2020-01-12 00:00:00 [facility] Primary malignant neoplasm of prostate Primary Malignant Zeb plasm of Prostate Problem Active 2019-11-25 00:00:00 [facility] History of aortic valve replacement History of Aortic Valve Repl acement Problem Active 2019-11-25 00:00:00 [facility] Tear of right rotator cuff Tear of Right Rotator Cuff Problem Active 2018-08-14 00:00:00 [facility] Hyperlipidemia Hyperlipidemia Problem Active 2017-12-11 00:00:00 [facility] Diabetic polyneuropathy Diabetic Polyneuropathy Problem Active 2017-09-19 00:00:00 [facility] Major depressive disorder Major Depressive Disorder Problem Ac tive 2017-09-19 00:00:00 [facility] 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 Problem Active 2017-04-15 00:00:00 [place] Hyperglycemia due to type 2 diabetes mellitus Hypergly cemia Due to Type 2 Diabetes Mellitus Problem Active 2017-02-26 00:00:00 [facility] Type 2 diabetes mellitus without complication Type 2 D iabetes Mellitus without Complication Problem Active 2015-05-04 00:00:00 [facility] Pure hypercholesterolemia Pure Hypercholesterolemia Problem [facility] 2014-12-15 00:00:00 [facility] Neurological disorder with type 2 diabetes mellitus Ne urological Disorder with Type 2 Diabetes Mellitus Problem Active [facility] Moderate major depression, single episode Moderate Slava or Depression, Single Episode Problem Active [facility] ractice 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 Problem Active [facility] Low blood pressure Low Blood Pressure Problem Active [facility] Asthenia Asthenia Problem Active [facility] Clinical finding Clinical Finding Problem Active [facility] Finding of general energy Finding of General Energy Problem Active [facility] Evaluation finding Evaluation Finding Problem Active [facility] Tendon rupture - shoulder Tendon Rupture - Shoulder Problem Active [facility] Allergies, Adverse Reactions, Alerts Allergy Name Allergy Type Status Severity Reaction(s) Onset Date Inacti ve Date Treating Clinician Comments Source Fluoxetine Propensity to adverse reactions to drug Active Unknown Reaction 2020-05-13 00:00:00 [facility] Simvastatin Propensity to adverse reactions to drug Active Unknown Reaction 2020-05-13 00:00:00 Eb [facility] No Known Allergies DA Active U 2020-03-20 00:00:00 [facility] No Known Allergies DA Active U 2017-03-12 00:00:00 [facility] Simvastatin Allergy to substance Active [facility] Prozac Allergy to substance Active [facility] Practice Social History Social Habit Start Date Stop Date Quantity Comments Source Sex Assigned At Khadra guthrie Bahai Alcohol intake 2020-05-13 00:00:00 2020-05-13 00:00:00 Eb Mustafa Smoking Status Start Date Stop Date Source Former Smoker [facility] Medications Ordered Medication Name Filled Medication Name Start Date Stop Da te Current Medication? Ordering Clinician Indication Dosage Frequency Signature (SIG) Comments Components Source mirtazapine (REMERON) 15 MG tablet 2020-05-17 14:29:15 202 00:00:00 No 7.5mg QD Take 7.5 mg by mouth nightly. Eb Mustafa acetaminophen (TYLENOL) 325 MG tablet 2020-05-17 14:29:12 Y es 650mg Q6H Take 650 mg by mouth every 6 (six) hours as needed for fever. do Eb Mustafa aspirin (ECOTRIN) 81 MG enteric coated tablet 2020-05-17 14:29:1 2 Yes 81mg QD Take 81 mg by mouth daily. H giorgio Mustafa docusate sodium (COLACE) 100 MG capsule 2020-05-17 14:29:12 Yes 100mg QD Take 100 mg by mouth daily. Lele Mustafa tamsulosin (FLOMAX) 0.4 mg capsule 2020-05-17 14:29:12 Yes .4mg QD Take 0.4 mg by mouth daily with dinner. Wing Mustafa polyethylene glycol (MIRALAX) 17 gram packet 2020-05-17 14:29:12 Yes 17g QD Take 17 g by mouth daily. Rivera Mustafa lidocaine (XYLOCAINE) 2 % jelly 2020-05-17 14:29:12 Yes [id number] Apply topically 3 (three) times a day. T opically to perineal area Eb Mustafa megestroL (MEGACE) 400 mg/10 mL (10 mL) suspension 2020-05 14:29:12 Yes 400mg Q.5D Take 400 mg by mouth 2 (two) times a day . Eb Mustafa venlafaxine (EFFEXOR) 37.5 MG tablet 2020-05-17 14:29:12 Yes 37.5mg Q.5D Take 37.5 mg by mouth 2 (two) times a day. Eb Mustafa cholecalciferol, vitamin D3, 50 mcg (2,000 unit) capsule cap radha 2020-05-17 14:29:12 Yes 2000U QD Take 2,000 Units by mouth shahram ly. Eb Mustafa cholecalciferol, vitamin D3, 1,000 unit tablet 2020-05-17 14:29: 12 Yes 1000U Q.5D Take 1,000 Units by mouth 2 (two) times a day. Eb Mustafa metoprolol tartrate (LOPRESSOR) 25 mg tablet 202 00:00:00 2020-06-16 23:59:00 No 12.5mg Q.5D Take 0.5 table ts (12.5 mg total) by mouth 2 (two) times a day for 30 days. Eb burgess doxycycline (VIBRAMYCIN) 100 MG capsule 00:00:00 2020-05-24 23:59:00 No 100mg Q.5D Take 1 capsule (100 mg total) by mouth 2 (two) times a day with meals for 7 days. Eb cheng amoxicillin-pot clavulanate (AUGMENTIN) 875-125 mg per table t 2020-05-15 00:00:00 2020-05-27 23:59:00 No 1{tbl} Q.5D Take 1 tablet by mouth 2 (two) times a day for 12 days. Eb burgess alprazolam 0.25 mg tablet Take 1 tablet 3 times a day by oral route for 3 days. alprazolam 0.25 mg tablet Take 1 tablet 3 times a day by oral route for 3 days. No 1 TID alprazolam 0.25 mg tablet Take 1 tablet 3 times a day by oral route for 3 days. [facility] ice Aspir-81 mg tablet,delayed release Once a day: 1 table t 81 MG Aspir-81 mg tablet,delayed release Once a day: 1 tablet 81 MG No Aspir-81 mg tablet,delayed release Once a day: 1 tablet 81 MG [facility] Practice Bactrim DS 800 mg-160 mg tablet Take 1 tablet every 12 hours by oral route. Bactrim DS 800 mg-160 mg tablet Take 1 tablet every 12 hours by oral route. No 1 Q12H Bactrim DS 800 mg-160 mg tablet Take 1 tablet every 12 hours by oral route. [facility] ice gabapentin 100 mg capsule Three times a day: 1 capsule 100 MG gabapentin 100 mg capsule Three times a day: 1 capsule 100 MG No gabapentin 100 mg capsule Three times a day: 1 capsule 100 MG [facility] megestrol 400 mg/10 mL (40 mg/mL) oral s uspension Take 10 mL every day by oral route. megestrol 400 mg/10 mL (40 mg/mL) oral s uspension Take 10 mL every day by oral route. No 10mL Q1D megestrol 40 0 mg/10 mL (40 mg/mL) oral suspension Take 10 mL every day by oral route. [facility] metformin 500 mg tablet Once a day: 2 tablets 500 MG m etformin 500 mg tablet Once a day: 2 tablets 500 MG No metformin 500 mg tablet Once a day: 2 tablets 500 MG [facility] tamsulosin 0.4 mg capsule TAKE 1 CAPSULE BY MOUTH EVER Y DAY tamsulosin 0.4 mg capsule TAKE 1 CAPSULE BY MOUTH EVERY DAY No tamsulosin 0.4 mg capsule TAKE 1 CAPSULE BY MOUTH EVERY DAY [facility] venlafaxine ER 37.5 mg capsule,extended release 24 hr Take 1 capsule every day by oral route. venlafaxine ER 37.5 mg capsule,extended release 24 hr Take 1 capsule every day by oral route. No 1capsul e(s) Q1D venlafaxine ER 37.5 mg capsule,extended release 24 hr Take 1 capsule every day by oral route. [facility] Immunizations Ordered Immunization Name Filled Immunization Name Date Status Comments Source influenza, injectable, quadrivalent influenza, injectable, q uadrivalent 2019-07-05 00:00:00 Completed [facility] ice influenza, seasonal, injectable influenza, seasonal, injecta ble 2014-07-19 00:00:00 Completed [facility] ice influenza, injectable, quadrivalent influenza, injectable, q uadrivalent 2013-11-04 00:00:00 Completed [facility] ice Vital Signs Vital Name Observation Time Observation Value Comments Source Height 2020-03-21 00:00:00 71 [in_i] [facility] Height 2020-03-19 00:00:00 71 [in_i] [facility] BMI (Body Mass Index) 2020-03-19 00:00:00 23.6 kg/m2 [facility] Body Weight 2020-03-19 00:00:00 169 [lb_av] [facility] Height 2020-02-24 00:00:00 71 [in_i] [facility] Height 2020-02-01 00:00:00 71 [in_i] [facility] BP Diastolic 2020-01-12 00:00:00 67 mm[Hg] [facility] Height 2020-01-12 00:00:00 71 [in_i] [facility] BMI (Body Mass Index) 2020-01-12 00:00:00 24 kg/m2 [facility] BP Systolic 2020-01-12 00:00:00 124 mm[Hg] [facility] Body Weight 2020-01-12 00:00:00 172 [lb_av] [facility] BP Diastolic 2020-01-04 00:00:00 75 mm[Hg] [facility] Height 2020-01-04 00:00:00 71 [in_i] [facility] BMI (Body Mass Index) 2020-01-04 00:00:00 23.6 kg/m2 [facility] BP Systolic 2020-01-04 00:00:00 126 mm[Hg] [facility] Body Weight 2020-01-04 00:00:00 169 [lb_av] [facility] BP Diastolic 2019-11-25 00:00:00 76 mm[Hg] [facility] Height 2019-11-25 00:00:00 71 [in_i] [facility] BMI (Body Mass Index) 2019-11-25 00:00:00 23.8 kg/m2 [facility] BP Systolic 2019-11-25 00:00:00 135 mm[Hg] [facility] Body Weight 2019-11-25 00:00:00 171 [lb_av] [facility] BP Diastolic 2019-06-11 00:00:00 73 mm[Hg] [facility] Height 2019-06-11 00:00:00 71 [in_i] [facility] BMI (Body Mass Index) 2019-06-11 00:00:00 23.8 kg/m2 [facility] BP Systolic 2019-06-11 00:00:00 122 mm[Hg] [facility] Body Weight 2019-06-11 00:00:00 171 [lb_av] [facility] BP Diastolic 2019-06-05 00:00:00 64 mm[Hg] [facility] Height 2019-06-05 00:00:00 71 [in_i] [facility] BMI (Body Mass Index) 2019-06-05 00:00:00 23.7 kg/m2 [facility] BP Systolic 2019-06-05 00:00:00 110 mm[Hg] [facility] Body Weight 2019-06-05 00:00:00 170 [lb_av] [facility] Heart rate 2020-05-17 14:00:00 74 /min Eb Bahai Respiratory rate 2020-05-17 14:00:00 16 /min Lele stoll Bahai Oxygen saturation in Arterial blood by Pulse oximetry 05-17 14:00:00 99 /min Eb Gilliamist Systolic blood pressure 2020-05-17 10:29:57 113 mm[Hg] Eb Mustafa Diastolic blood pressure 2020-05-17 10:29:57 58 mm[Hg] Eb Gilliamist Body temperature 2020-05-17 10:29:57 37 Cora Lele stoll Bahai Body weight 2020-05-15 05:48:00 71.714 kg Eb Mustafa BMI 2020-05-15 05:48:00 22.68 kg/m2 Eb Mustafa Body height 2020-05-13 10:18:00 177.8 cm Eb Mustafa Procedures Procedure Date / Time Performed Performing Clinician Sourc e CBC HEMOGRAM 2020-05-17 05:25:00 ShemarAlka tadeo Meth odist CBC HEMOGRAM 2020-05-16 05:14:00 RolandoAlka Meth odist HC COMPLETE BLD COUNT W/AUTO DIFF 2020-05-15 06:04:00 Maame Moses BASIC METABOLIC PANEL 2020-05-15 06:04:00 Sofia Moses n Bahai MAGNESIUM LEVEL 2020-05-15 06:04:00 Sofia Moses odemmanuel ESTIMATED GFR 2020-05-15 06:04:00 YasirchrissyAlka tadeo Meth odist ECG 12-LEAD 2020-05-14 21:33:38 Rolando Marknara Parson Meth odist TTE COMPLETE, WO CONTRAST, W DOPPLER (14220) 2020-05-14 12:54:00 Jerald Siva Mustafa TROPONIN 2020-05-14 06:00:00 Marques Siva schaeffer PREALBUMIN LEVEL 2020-05-14 06:00:00 Torito Navarro HC COMPLETE BLD COUNT W/AUTO DIFF 2020-05-14 05:00:00 Jerald Liliane Mustafa COMPREHENSIVE METABOLIC PANEL 2020-05-14 05:00:00 Jerald Siva Mustafa LIPID PANEL 2020-05-14 05:00:00 Jerald Siva schaeffer B NATRIURETIC PEPTIDE 2020-05-14 05:00:00 Torito Navarro THYROID STIMULATING HORMONE 2020-05-14 05:00:00 Ilia Navarro ESTIMATED GFR 2020-05-14 05:00:00 Jerald Siva schaeffer ANTI XA, UNFRACTIONATED 2020-05-14 05:00:00 Torito Navarro ECG 12-LEAD 2020-05-14 04:55:00 Siva Marques LACTIC ACID LEVEL, SEPSIS - NOW AND REPEAT 2X EVERY 3 HOURS 2020-05-13 21:40:00 Torito Navarro TROPONIN 2020-05-13 21:40:00 Jerald Siva schaeffer ANTI XA, UNFRACTIONATED 2020-05-13 21:40:00 Torito Navarro ECG 12-LEAD 2020-05-13 20:29:[address] ABDOMEN PELVIS WO CONTRAST 2020-05-13 17:10:51 Siva Marques URINE CULTURE 2020-05-13 16:53:00 Siva Marques URINALYSIS SCREEN AND MICROSCOPY, WITH REFLEX TO CULTURE 16:20:00 Siva Marques COVID-19 QUALITATIVE PCR 2020-05-13 15:34:00 Siva Marques LACTIC ACID LEVEL, SEPSIS - NOW AND REPEAT 2X EVERY 3 HOURS 2020-05-13 15:32:00 Torito Navarro TROPONIN 2020-05-13 15:32:00 Torito Navarro ethodist VENOUS BLOOD GAS 2020-05-13 13:34:00 Siva Marques BLOOD CULTURE, AEROBIC & ANAEROBIC 2020-05-13 11:08:[address] HEAD WO CONTRAST 2020-05-13 11:07:49 Siva Marques XR CHEST 1 VW PORTABLE 2020-05-13 10:47:52 Siva Marques on Bahai BLOOD CULTURE, AEROBIC & ANAEROBIC 2020-05-13 10:39:00 Yao Marques HC COMPLETE BLD COUNT W/AUTO DIFF 2020-05-13 10:38:00 Liliane Marques PROTHROMBIN TIME WITH INR 2020-05-13 10:38:00 Siva Marques PARTIAL THROMBOPLASTIN TIME (PTT) 2020-05-13 10:38:00 Liliane Marques PHOSPHORUS LEVEL 2020-05-13 10:38:00 Siva Marques MAGNESIUM LEVEL 2020-05-13 10:38:00 Siva Marques LACTIC ACID LEVEL, SEPSIS - NOW AND REPEAT 2X EVERY 3 HOURS 2020-05-13 10:38:00 Torito Navarro B NATRIURETIC PEPTIDE 2020-05-13 10:38:00 Siva Marques TROPONIN 2020-05-13 10:38:00 Torito Navarro ethodist CREATINE KINASE, TOTAL (CPK) 2020-05-13 10:38:00 Siva Marques COMPREHENSIVE METABOLIC PANEL 2020-05-13 10:38:00 Siva Marques ESTIMATED GFR 2020-05-13 10:38:00 Siva Marques SD CRITICAL CARE, E/M 30-74 MINUTES 2020-05-13 10:30:32 Kendall Marques ECG ED PRELIMINARY INTERPRETATION 2020-05-13 10:30:32 Liliane Marques ECG 12-LEAD 2020-05-13 10:19:50 Siva Marques ankle brachial index 2020-01-12 00:00:00 [facility] Cardiac Surgery [facility] P carlos Replacement of Aortic Valve [place] Plan of Care Planned Activity Planned Date Details Comments Source Future Scheduled Test 2020-08-04 00:00:00 INFLUENZA VACCINE [code = INFLUENZA VACCINE] Eb Mustafa Future Scheduled Test 2000 00:00:00 65+ PNEUMOCOCCAL V ACCINE (1 of 2 - PCV13) [code = 65+ PNEUMOCOCCAL VACCINE (1 of 2 - PCV13)] [facility] Scheduled Test 1985 00:00:00 SHINGLES VACCINES (#1) [code = SHINGLES VACCINES (#1)] [facility] Scheduled Test 1945 00:00:00 DIABETIC FOOT EXAM [code = DIABETIC FOOT EXAM] [facility] Future Scheduled Test 1935 00:00:00 DIABETIC RETINAL E YE EXAM [code = DIABETIC RETINAL EYE EXAM] [facility] Encounters Start Date/Time End Date/Time Encounter Type Admission Type Attendi [facility] Care Department Encounter ID Source 2020-05-13 00:00:00 2020-05-17 00:00:00 Inpatient [facility] [id number] [facility] 2020-03-21 00:00:00 2020-03-21 00:00:00 David Kenney MD: [address], [place] [address], Ph. V FP [facility] - [facility] [place] [id number] [facility] 2020-03-19 00:00:00 2020-03-19 00:00:00 Bienvenido Caban, DO: [address], [address], [place] [address], Ph. VFP [facility] [id number] [facility] 2020-02-24 00:00:00 2020-02-24 00:00:00 David Kenney MD: [address], [place] [address], Ph. V FP [facility] - [facility] [place] [id number] [facility] 2020-02-01 00:00:00 2020-02-01 00:00:00 David Kenney MD: [address], [place] [address], Ph. V FP [facility] - [facility] [place] [id number] [facility] 2020-01-12 00:00:00 2020-01-12 00:00:00 David Kenney MD: [address], [place] [address], Ph. V [facility] - [facility] [place] [id number] [facility] 2020-01-04 00:00:00 2020-01-04 00:00:00 Adam Watson MD: [address], [place] [address], Ph. V [facility] - [facility] [place] [id number] [facility] 2019-11-25 00:00:00 2019-11-25 00:00:00 David Kenney MD: [address], [place] [address], Ph. V [facility] - [facility] [place] [id number] [facility] 2019-06-11 00:00:00 2019-06-11 00:00:00 David Kenney MD: [address], [place] [address], Ph. V [facility] [id number] [facility] 2019-06-05 00:00:00 2019-06-05 00:00:00 David Kenney MD: [address], [place] [address], Ph. V [facility] [id number] [facility] Results Test Description Test Time Test Comments Results Result Comments Source CBC hemogram 2020-05-17 05:57:12 Test Item WBC (test code = 18173-2) 6.72 4.50- 11.00 k/uL RBC (test code = 79632-7) 3.34 m/uL 4.4-6 L HGB (test code = 718-7) 10.1 g/dL 14-18 L HCT (test code = 4544-3) 32.1 % 41-51 L MCV (test code = 787-2) 96.1 fL 82-100 MCH (test code = 785-6) 30.2 pg 27-34 MCHC (test code = 786-4) 31.5 g/dL 31-37 RDW - SD (test code = 87522-1) 50.7 fL 37-55 MPV (test code = 77886-5) 9.9 fL 8.8-13.2 Platelet count (test code = 49900-5) 163 150- 400 k/uL Nucleated RBC (test code = 01510-5) 0.00 /100 WBC Lab Interpretation (test code = 04978-9) Abnormal [facility] [id number] 22:20:35* Test Item Value Reference Range Interpretation Comments Ventricular rate (test code = 253) 64 Atrial rate (test code = 255) 64 SD interval (test code = 266) 158 QRSD interval (test code = 260) 98 QT interval (test code = 264) 418 QTC interval (test code = 265) 431 P axis 1 (test code = 267) 70 QRS axis 1 (test code = 268) -43 T wave axis (test code = 270) 29 EKG impression (test code = 273) Normal sinus rhythm-L eft axis deviation- Possible Lateral infarct (cited on or before 14-MAY-2020)-Abnormal ECG-In automated comparison with ECG of 14-MAY-2020 04:55,-Nonspecific T wave abnormality, worse in Anterior leads- Eb MustafaTransthoracic Echocardiogram Complete, (w Contrast, Strain and 3D if needed)2020-05-15 10:40:45* Test Item Value Reference Range Interpretation Comments AoV Area, Vmax (test code = 7390910018) 3.85 cm2 AoV Area, VTI (test code = 6902330134) 3.84 cm2 AoV Mean PG (test code = 7234448850) 1.18 mmHg AoV Peak PG (test code = 6021003702) 3.05 mmHg AoV Vmax (test code = 7897553239) 0.87 m/s AoV VTI (test code = 8531229324) 0.16 m IVS,d (test code = 2102310513) 1.10 cm LV,d (test code = 8948985970) 3.88 cm LV EF,A2C (test code = 8326389991) 53.06 % LV EF,A4C (test code = 1775814717) 48.90 % LV EF,BP (test code = 4596403281) 47.73 % Slava [place],d A2C (test code = 1312331814) 6.91 cm Slava [place],d A4C (test code = 6616409522) 6.75 cm Slava [place],s A2C (test code = 7200486015) 5.10 cm Slava [place],s A4C (test code = 9490140460) 5.97 cm LV,s (test code = 0371015717) 3.03 cm LV SV,A2C (test code = 3967409365) 31.61 % LV SV,A4C (test code = 8720573394) 31.26 % LV Vol,d A2C (test code = 0472188566) 59.56 mL LV Vol,d A4C (test code = 0605349066) 63.93 ml LV Vol,d BP (test code = 7739582517) 62.33 ml LV Vol,s A2C (test code = 2892282108) 27.96 mL LV Vol,s A4C (test code = 7536115482) 32.67 ml LV Vol,s BP (test code = 5761643140) 32.58 nl LVOT Diam,S (test code = 7930579249) 2.33 cm LVOT Vmax (test code = 3346019037) 0.79 m/s LVOT VTI (test code = 4731613361) 0.15 m LVPWD,d (test code = 9996809073) 1.21 cm MV E A ratio (test code = 1854906950) 0.54 MR Vmax (test code = 4895020817) 3.30 m/s MR peak grad (test code = 4778450192) 20.84 mmHg E wave decelartion time (test code = 8959623877) 261.45 msec MV Peak A Joaquin (test code = 5023764152) 1.43 m/s MV valve area p 1/2 method (test code = 9046198930) 3.45 cm2 MV Peak E Joaquin (test code = 9892260785) 0.77 m/s MV stenosis pressure 1/2 time (test code = 2297869841) 63.84 ms AV LVOT peak gradient (test code = 3483607332) 2.49 mmHg LV SYS VOL (test code = 3548896370) 35.80 ml LV FLOYD VOL (test code = 5737964311) 64.94 ml LA area s A4C (test code = 9787787558) 13.07 cm2 LV SV Teich 2D (test code = 4162114184) 29.13 ml LVOT SI (test code = 0708078559) 32.21 ml/m2 AoV Cusp sep (test code = 7572361221) 1.96 AoV Vmn (test code = 1512968540) 0.48 IVS s 2D (test code = 9408467832) 1.20 LA Ao Ratio Mmode (test code = 7366784861) 1.54 LVOT Vmn (test code = 1153882406) 0.44 Pt Size (test code = 8516159364) 182.88 Pt Wt (test code = 6145421617) 74.84 PV AT (test code = 3532847502) 85.63 msec LVOT mean grad (test code = 7714951483) 1.05 mmHg LVPW s PLAX (test code = 8094456078) 1.42 cm MV Decel slope (test code = 8547719272) 2.93 m/s2 LA Vol MOD A4C (test code = 8108123558) 31.19 ml Velocity Ratio (V1/V2) (test code = 4689) 0.91 m/s EF (test code = 4039299889) 44.87 % E/A ratio (test code = 6928543748) 0.54 LVOT area (test code = 1835992894) 4.26 cm2 LA Vol 4C (test code = 4464861698) 31.00 ml LA diam s (test code = 6925555807) 4.60 cm Aortic Root (test code = 4850663921) 2.97 cm D E excurs (test code = 4634107386) 0.80 E f slope (test code = 8552404790) 0.03 E prime lat (test code = 6505616747) 0.06 E celeste sept (test code = 0847415131) 0.03 PV acc T slope (test code = 0503252068) 5.90 HERNÁNDEZ BP EF (test code = 4300735732) 48.00 % LA VOL 2C (test code = 2231814115) 30.00 ml CARMEN (test code = CARMEN) Left ventricular systolic function is normal. Left Ventricular ejection fraction is 55 - 60%. Spectral Doppler shows impaired relaxation pattern of left ventricular diastolic filling. Stage II diastolic dysfunction. [facility] [id number] 07:05:13* Test Item Value Reference Range Interpretation Comments Sodium (test code = 2951-2) 141 135- 148 mEq/L Potassium (test code = 2823-3) 3.1 3.5- 5.0 mEq/L L Chloride (test code = 2075-0) 113 98- 112 mEq/L H CO2 (test code = 8-9) 15 24- 31 mEq/L L Anion gap (test code = 46437-4) 13@ANIO 7- 15 mEq/L BUN (test code = 3094-0) 44 mg/dL 8-23 H Creatinine (test code = 2160-0) 0.70 mg/dL 0.7-1.2 Glucose (test code = 2345-7) 154 mg/dL 65-99 H Calcium (test code = 34267-6) 10.9 mg/dL 8.8-10.2 H Lab Interpretation (test code = 55918-2) Abnormal [facility] [id number] 07:05:13* Test Item Value Reference Range Interpretation Comments Magnesium (test code = 19972-1) 2.0 mg/dL 1.6-2.4 [place] [facility] [id number] 07:05:13* Test Item Value Reference Range Interpretation Comments Estimated GFR (test code = 5488) 86 mL/min/1.73 m2 Catergory Units InterpretationG1 >=90 Normal or highG2 60-89 Mildly mgisxiklyH5w 45-59 Mildly to moderately nnrvmmmlyE8t 30-44 Moderately to severely decreasedG4 15-29 Severely decreasedG5 <15 Kidney failureThe eGFR was calculated using the Chronic Kidney Disease Epidemiology Collaboration (CKD-EPI) equation. Interpretation is based on recommendations of the National Kidney Foundation-Kidney Disease Outcomes Quality Initiative (NKF-KDOQI) published in 2014. [facility]CBC with platelet and amfxqdwkctqu8058-97-41 06:29:42* Test Item Value Reference Range Interpretation Comments WBC (test code = 63256-4) 8.34 4.50- 11.00 k/uL RBC (test code = 85386-3) 3.60 m/uL 4.4-6 L HGB (test code = 718-7) 10.8 g/dL 14-18 L HCT (test code = 4544-3) 34.7 % 41-51 L MCV (test code = 787-2) 96.4 fL 82-100 MCH (test code = 785-6) 30.0 pg 27-34 MCHC (test code = 786-4) 31.1 g/dL 31-37 RDW - SD (test code = 21859-7) 49.9 fL 37-55 MPV (test code = 95829-1) 10.8 fL 8.8-13.2 Platelet count (test code = 35251-9) 157 150- 400 k/uL Nucleated RBC (test code = 71403-6) 0.00 /100 WBC Neutrophils (test code = 31877-1) 83.5 % 39-69 H Lymphocytes (test code = 14301-4) 6.8 % 25-45 L Monocytes (test code = 28896-2) 7.7 % 0-10 Eosinophils (test code = 37591-6) 0.7 % 0-5 Basophils (test code = 33341-7) 0.2 % 0-1 Lab Interpretation (test code = 07299-1) Abnormal [facility] MethodistCOVID-19 qualitative [id number] 16:13:12* Test Item Value Reference Range Interpretation Comments Interpretation (test code = 2589016) Negative results do not preclude 2019-nCoV infection and should not be used as the sole basis for treatment or other patient management decisions. Negative results must be combined with clinical observations, patient history, and epidemiological information. COVID-19 qualitative PCR result (test code = 68915-4) Not-Detect ed Not-Detected COVID-19 qualitative PCR (test code = 7070) See link below for P DF Lab Report [facility] MethodistPrealbumin [id number] 14:22:58* Test Item Value Reference Range Interpretation Comments Prealbumin (test code = 6793-4) 10 mg/dL 16-32 L Lab Interpretation (test code = 06188-8) Abnormal [facility] RathkjyfzHfgvtylq0471-15-84 07:16:57* Test Item Value Reference Range Interpretation Comments Troponin (test code = 18821-3) 0.093 ng/mL 0-0.04 H In patients suspected of having a myocardial infarction, along with all other appropriate clinical measures and actions including ECG and other diagnostics as appropriate, measure Ultra TnI at 0 hrs and at 3 hrs.Myocardial infarction VERY LIKELYThe 0 hr TnI level is > 0.10 ng/mL Colby cardial infarction LIKELYThe 0 hr TnI level is > 0.04 ng/mL and 3 hr level is increased or decreased by at least 0.020 ng/mL Myocardi al infarction VERY UNLIKELYBoth the 0 hr and 3 hr TnI levels <= 0.04 ng/mL(within normal limits) OR 0 hr is > 0.04 ng/mL and 3 hr is increased OR decreased by less than 0.020 ng/mL Lab Interpretation (test code = 56733-9) Abnormal [facility] MethodistThyroid stimulating vdvbpru3091-61-19 06:00:34* Test Item Value Reference Range Interpretation Comments TSH (test code = 3016-3) 0.60 0.27- 4.20 uIU/mL [facility] MethodistB natriuretic jwezlud7120-53-05 05:56:18* Test Item Value Reference Range Interpretation Comments BNP (test code = 85907-4) 100 pg/mL 0-100 [facility] MethodistComprehensive metabolic aqzya2675-04-28 05:50:34* Test Item Value Reference Range Interpretation Comments Sodium (test code = 2951-2) 139 135- 148 mEq/L Potassium (test code = 2823-3) 3.2 3.5- 5.0 mEq/L L Chloride (test code = 5-0) 108 98- 112 mEq/L CO2 (test code = 2027-9) 17 24- 31 mEq/L L Anion gap (test code = 94445-3) 14@ANIO 7- 15 mEq/L BUN (test code = 3094-0) 66 mg/dL 8-23 H Creatinine (test code = 2160-0) 1.20 mg/dL 0.7-1.2 Glucose (test code = 2345-7) 175 mg/dL 65-99 H Calcium (test code = 84398-7) 11.3 mg/dL 8.8-10.2 H Protein (test code = 2885-2) 6.3 g/dL 6.3-8.3 - 4.6- 7.0 g/dL1 week 4.4-7.6 g/dL7 months-1year 5.1-7.3 g/dL1-2 years 5.6-7.5 g/dL>3 years 6.0-8.0 g/nB98-915 6.3-8.3 g/dL Albumin (test code = 1751-7) 2.9 g/dL 3.5-5 L A/G ratio (test code = 1759-0) 0.9 0.7-3.8 Alkaline phosphatase (test code = 6768-6) 60 U/L 40-129 AST (test code = 1920-8) 13 U/L 10-50 ALT (test code = 1742-6) 15 U/L 5-50 Total bilirubin (test code = 1974-2) 0.3 mg/dL 0-1.2 Lab Interpretation (test code = 95346-1) Abnormal [facility] MethodistLipid [id number] 05:50:34* Test Item Value Reference Range Interpretation Comments Cholesterol (test code = 3-3) 197 mg/dL <200 Triglycerides (test code = 2571-8) 332 mg/dL <150 H HDL cholesterol (test code = 2084-9) 15 mg/dL >40 L LDL cholesterol (test code = 2089-1) 82 mg/dL <100 Result obtained by direct LDL measurement Lipid panel interpretation (test code = 68675-5) SeeBelow Total Cholesterol (mg/dL) <200 Desirable 200-239 Borderline-high >=240 High Triglycerides (mg/dL) <150 Normal 150-199 Borderline-high 200-499 High >=500 Very high HDL Cholesterol (mg/dL) <40 Low (male) <40 Low (female) LDL Cholesterol (mg/dL) <100 Optimal 100-129 Near or above optimal 130-159 Borderline-high 160-189 High >=190 Very high Risk Catergories that modify LDL goals.Risk Catergories LDL goal (mg/dL)CHD and CHD risk equivalent <100 (10-year risk >20%)Multiple (2+) risk factors <130 (10-year risk =<20%)0-1 risk factors <160 (<10-year risk) Defining levels of lipids in metabolic syndromeTriglycerides >=150 mg/dLHDL Cholesterol Men <40 mg/dL Women <40 mg/dL Non-HDL cholesterol is a second target for therapy in personswith high triglycerides (>=200 mg/dL) Lab Interpretation (test code = 26959-1) Abnormal Eb MethodistAnti Xa, rvxgnrowmscfqg2181-46-93 05:47:10* Test Item Value Reference Range Interpretation Comments Anti Xa, unfractionated (test code = 3274-8) 0.37 U/mL 0.3-0.7 Therapeutic Range: 0.30 - 0.70 U/mL Eb MethodistLactic acid level, SEPSIS - Now and repeat 2x every 3 hours 2020-05-13 22:10:28* Test Item Value Reference Range Interpretation Comments Lactic acid (test code = 14307-5) 2.3 mmol/L 0.5-2.2 H Lab Interpretation (test code = 25308-2) Abnormal Eb MethodistCT Abdomen Pelvis Wo Cechmzfu8068-24-91 17:18:48Hm Interface, Radiology Results 05/13/2020 5:21 PM CDTEXAMINATION: CT ABDOMEN PELVIS WO CONTRASTCLINICAL HISTORY: AMS chronic barron Cr 2.7TECHNIQUE: Multiple axial images of the abdomen and pelvis were obtained without intr avenous administration of iodinated contrast. Sagittal and coronal computerized reformatted images were also obtained. The lack of intravenous contrast reduces the sensitivity of detecting solid organ disease.CT imaging was performed with i terative reconstruction techniques and/or automated exposure control to reduce r adiation dose.COMPARISON: None.FINDINGS:Suboptimal solid organ evaluation witho ut contrast. Liver and spleen are normal in size. 2.7 cm cyst in the left lobe o f the liver.Cholelithiasis.No nephrolithiasis or significant hydronephrosis. Mil d fullness of the renal pelvis bilaterally is nonspecific. Ureters are normal in course and caliber.Barron catheter is in the bladder. There is mild increased st ation around the Barron balloon and catheter tip. There is also layering hyperden sity in the bladder lumen.No signs of bowel obstruction or inflammation. No free fluid or free air.Aorta is normal in caliber.IVC filter in place.IMPRESSION:1.No evidence of acute process.2.Mild encrustation of the Barron catheter tip/balloon. Layering hyperdensity in the bladder may be contrast (if administered recently), milk of calcium and/or tiny stones.3.Cholelithiasis.[facility]-KNDOBW1Rildrvp MethodistUrinalysis screen and microscopy, with reflex to ugnypnz6632-26-66 16:53:28* Test Item Value Reference Range Interpretation Comments Specimen site (test code = 3839833) Clean catch Color, UA (test code = 5778-6) Airam Appearance, UA (test code = 5767-9) Cloudy Specific gravity, UA (test code = 5811-5) 1.017 1.001-1.035 pH, UA (test code = 5803-2) 6.0 5.0-8.5 Protein, UA (test code = 73297-5) 2+ Negative A Glucose, UA (test code = 35876-3) Negative Negative Ketones, UA (test code = 2514-8) Negative Negative Bilirubin, UA (test code = 5770-3) Negative Negative Blood, UA (test code = 5794-3) Large Negative A Nitrite, UA (test code = 5802-4) Negative Negative Urobilinogen, UA (test code = 64507-2) Negative <2.0 Leukocyte esterase, UA (test code = 5799-2) Large Negative A Epithelial cells, UA (test code = 5787-7) None seen Few /HPF WBC, UA (test code = 5821-4) 61-80 0- 1 /HPF H RBC, UA (test code = 15257-5) 21-40 0- 5 /HPF H Bacteria, UA (test code = 20109-6) Many None seen A Yeast, UA (test code = 81564-5) None seen Yeast with pseudohyphae, UA (test code = 87964-7) None seen Lab Interpretation (test code = 96578-7) Abnormal [facility] MethodistVenous blood [id number] 13:46:19* Test Item Value Reference Range Interpretation Comments pH, venous (test code = 2746-6) 7.32 7.32-7.42 pCO2, venous (test code = 2021-4) 38 45- 51 mmHg L pO2, venous (test code = 2705-2) 180 25- 40 mmHg H Base excess, venous (test code = 1927-3) -6 meq/L -2-2 L O2 saturation, venous (test code = 2711-0) 20 % 40-70 L Bicarbonate, venous (test code = 70254-6) 17.9 mmol/L 21-28 L FiO2, inspired O2% (test code = 1389) Unknown % Lab Interpretation (test code = 64208-0) Abnormal [facility] MethodistCreatine kinase, total (CPK)2020-05-13 11:18:25* Test Item Value Reference Range Interpretation Comments Creatine kinase (test code = 2157-6) 22 U/L 39-308 L Lab Interpretation (test code = 70712-4) Abnormal [facility] MethodistPhosphorus [id number] 11:18:25* Test Item Value Reference Range Interpretation Comments Phosphorus (test code = 2777-1) 5.1 mg/dL 2.4-4.5 H Lab Interpretation (test code = 92154-3) Abnormal [facility] MethodistCT Head Wo Skxtywrs0472-66-48 11:11:35Hm Interface, Radiology Results 05/13/2020 11:14 AM CDTEXAMINATION: CT HEAD WO CONTRASTCLINICAL HISTORY: AMSCOMPARISON: None.TECHNIQUE: Noncontrast head CT performed using radiation dose reduction techniques. Technical factors are evaluated and adjusted to ensure appropriate moderation of exposure. Automated dose management technology is applied to adjust radiation exposure while a chieving a diagnostic quality image. FINDINGS:No evidence of acute intracranial hemorrhage, brain parenchymal mass, mass effect, midline shift, or acute infarc t. The ventricles are mild to moderately enlarged likely owing to central predom inance of moderate cerebral volume loss. Mild cerebellar volume loss. Dilation o f the extra-axial space within the left middle cranial fossa with smooth remodel ing of the adjacent calvaria, likely secondary to a small underlying arachnoid c yst spanning approximately 1.9 x 2.5 cm. Basal cisterns are clear. Calvarium is intact. Arteriosclerosis of the cavernous and paraclinoid internal carotid arter ies.Status post bilateral lens extractions. Small mucous retention cysts in the right maxillary sinus. Mastoid air cells are clear. IMPRESSION:1. No CT evidence of acute intracranial abnormality.[id number] MethodistProthrombin time with [id number] 11:08:34* Test Item Value Reference Range Interpretation Comments Prothrombin time (test code = 5902-2) 15.5 11.5- 14.5 sec H INR (test code = 56531-7) 1.2 Th e International Normalized Ratio (INR) is a therapeutic monitoring tool for patients who are stable on oral anticoagulant therapy. An INR of 2.0-3.0 is suggested for deep vein thrombosis/pulmonary embolism. Lab Interpretation (test code = 56508-5) Abnormal [facility] MethodistPartial thromboplastin time, yvbfqhksu8727-52-56 11:08:34* Test Item Value Reference Range Interpretation Comments PTT (test code = 67692-6) 32.9 23.0- 36.0 sec PTT therapeutic range for unfractionated heparin is61.0-112.0 seconds which corresponds to Anti-Xa0.3-0.7 U/ml. [facility] MethodistXR Chest 1 Maeetiff5575-48-14 10:50:04Hm Interface, Radiology Results - 05/13/2020 10:53 AM CDTEXAMINATION: XR CHEST 1 PORTABLECLINICAL HISTORY: SOBCOMPARISON: None.FINDINGS:One view of the chest demonstrates normal cardiomediastinal silhouette. Pulmonary vasculature is within normal limits. Postsurgical change of median sternotomy is noted.No consolidation or pleural effusion is seen. There is no evidence of pneumothor ax.Regional osseous structures is unremarkable.IMPRESSION:No radiographic eviden ce of acute cardiopulmonary process or active disease of the chest.[id number] T7QrqqgvyMidland Memorial HospitalTICAL SIGB2545-71-95 10:30:32Siva Marques MD 05/13/2020 8:38 PMCritical CarePerformed by: Siva Marques MDAuthorized by: Siva Marques MD Critical care provider statement: Critical care time (minutes): 35 Critical care time was exclusive of: Separately billable procedures and treating other patients and teaching time Critical care was necessary to treat or prevent imminent or life-threatening deterioration of the following conditions: Cardiac failure and sepsis Critical care was time spent personally by me on the following activities: Development of treatment plan with patient or surrogate, evaluation of patient's response to treatment, examination of patient, obtaining history from patient or surrogate, ordering and performing treatments and interventions, ordering and review of laboratory studies, ordering and review of radiographic studies, pulse oximetry and re-evaluation of patient's condition Hugh 'yes' if you are taking over critical care for this patient from another provider.: no [facility] Preliminary Interpretation - Not an Order 2020-05-13 10:30:32Siva Marques MD 05/13/2020 8:38 [facility] Preliminary Interpretation - Not an OrderPerformed by: Siva Marques MDAuthorized by: Siva Marques MD ECG reviewed by ED Physician in the absence of a epic ambulatory analyst: yes Interpretation: Interpretation: normal Rate: ECG rate: 109 ECG rate assessment: tachycardic Rhythm: Rhythm: sinus tachycardia Ectopy: Ectopy: PAC QRS: QRS axis: Left QRS intervals: NormalConduction: Conduction: normal ST segments: ST segments: Non-specificT waves: T waves: non- specific Other findings: Other findings: prolonged qTc interval Eb MustafaIpcntrywwHZGCUM4934-28-81 19:47:00* Test Item Value Reference Range Interpretation Comments GLUBED (test code = GLUBED) 164 MG/DL 70-110 H Performed by certified defensive fire control systems operator at [facility] [id number] 14:16:00* Test Item Value Reference Range Interpretation Comments GLUBED (test code = GLUBED) 140 MG/DL 70-110 H Performed by certified defensive fire control systems operator at [facility] [id number] 12:54:00* Test Item Value Reference Range Interpretation Comments GLUBED (test code = GLUBED) 140 MG/DL 70-110 H Performed by certified defensive fire control systems operator at [facility] CBC W/AUTO [id number] 11:14:00* Test Item Value Reference Range Interpretation Comments WHITE BLOOD CELL (test code = WBC) 5.75 x10 3/uL 4.5-11.0 N RED BLOOD CELL (test code = RBC) 2.83 x10 6/uL 4.00-5.60 L HEMOGLOBIN (test code = HGB) 9.5 g/dL 12.5-16.9 L HEMATOCRIT (test code = HCT) 30.5 % 37.5-50.7 L MEAN CELL VOLUME (test code = MCV) 107.8 fL 81.0-99.0 H MEAN CELL HGB (test code = MCH) 33.6 pg 27.0-33.0 H MEAN CELL HGB CONCETRATION (test code = MCHC) 31.1 g/dL 33.0-37. 0 L RED CELL DISTRIBUTION WIDTH CV (test code = RDW) 14.1 % 11.5- 14.5 N RED CELL DISTRIBUTION WIDTH SD (test code = RDW-SD) 55.5 fL 37 .0-54.0 H PLATELET COUNT (test code = PLT) 207 x10 3/uL 150-400 N MEAN PLATELET VOLUME (test code = MPV) 10.1 fL 7.0-9.0 H NEUTROPHIL % (test code = NT%) 65.1 % 56.0-77.0 N IMMATURE GRANULOCYTE % (test code = IG%) 1.4 % 0.0-2.0 N LYMPHOCYTE % (test code = LY%) 21.0 % 14.0-32.0 N MONOCYTE % (test code = MO%) 8.9 % 4.8-9.0 N EOSINOPHIL % (test code = EO%) 2.6 % 0.3-3.7 N BASOPHIL % (test code = BA%) 1.0 % 0.0-2.0 N NUCLEATED RBC % (test code = NRBC%) 0.0 % 0-0 N NEUTROPHIL # (test code = NT#) 3.74 x10 3/uL 2.0-7.6 N IMMATURE GRANULOCYTE # (test code = IG#) 0.08 x10 3/uL 0.00-0.03 H LYMPHOCYTE # (test code = LY#) 1.21 x10 3/uL 1.0-3.8 N MONOCYTE # (test code = MO#) 0.51 x10 3/uL 0.1-0.8 N EOSINOPHIL # (test code = EO#) 0.15 x10 3/uL 0.0-0.2 N BASOPHIL # (test code = BA#) 0.06 x10 3/uL 0.0-0.2 N NUCLEATED RBC # (test code = NRBC#) 0.00 x10 3/uL 0.0-0.1 N MANUAL DIFF REQUIRED (test code = MDIFF) NO RBC [id number] 11:14:00* Test Item Value Reference Range Interpretation Comments POLYCHROMASIA (test code = POLC) 2+ POIKILOCYTOSIS (test code = POIK) SLIGHT ANISOCYTOSIS (test code = ANISO) 1+ MACROCYTOSIS (test code = MACR) 1+ BASIC METABOLIC [id number] 09:00:00* Test Item Value Reference Range Interpretation Comments SODIUM (test code = NA) 140 mEq/L 134-147 N POTASSIUM (test code = K) 3.5 mEq/L 3.4-5.0 N CHLORIDE (test code = CL) 110 mEq/L 100-108 H CARBON DIOXIDE (test code = CO2) 21 mEq/L 21-33 N ANION GAP (test code = GAP) 13 0-20 N GLUCOSE (test code = GLU) 107 mg/dL 70-110 N BLOOD UREA NITROGEN (test code = BUN) 14 mg/dL 7-18 N GLOMERULAR FILTRATION RATE (test code = GFR) 107.4 70-80 H Units of measure = ml/min/1.73 m2 CREATININE (test code = CREAT) 0.7 mg/dL 0.6-1.3 N CALCIUM (test code = CA) 10.3 mg/dL 8.0-10.5 N [id number] 08:41:00* Test Item Value Reference Range Interpretation Comments GLUBED (test code = GLUBED) 120 MG/DL 70-110 H Performed by certified defensive fire control systems operator at [facility] CBC W/AUTO [id number] 07:22:00* Test Item Value Reference Range Interpretation Comments WHITE BLOOD CELL (test code = WBC) 5.75 x10 3/uL 4.5-11.0 N RED BLOOD CELL (test code = RBC) 2.83 x10 6/uL 4.00-5.60 L HEMOGLOBIN (test code = HGB) 9.5 g/dL 12.5-16.9 L HEMATOCRIT (test code = HCT) 30.5 % 37.5-50.7 L MEAN CELL VOLUME (test code = MCV) 107.8 fL 81.0-99.0 H MEAN CELL HGB (test code = MCH) 33.6 pg 27.0-33.0 H MEAN CELL HGB CONCETRATION (test code = MCHC) 31.1 g/dL 33.0-37. 0 L RED CELL DISTRIBUTION WIDTH CV (test code = RDW) 14.1 % 11.5- 14.5 N RED CELL DISTRIBUTION WIDTH SD (test code = RDW-SD) 55.5 fL 37 .0-54.0 H PLATELET COUNT (test code = PLT) 207 x10 3/uL 150-400 N MEAN PLATELET VOLUME (test code = MPV) 10.1 fL 7.0-9.0 H NEUTROPHIL % (test code = NT%) 65.1 % 56.0-77.0 N IMMATURE GRANULOCYTE % (test code = IG%) 1.4 % 0.0-2.0 N LYMPHOCYTE % (test code = LY%) 21.0 % 14.0-32.0 N MONOCYTE % (test code = MO%) 8.9 % 4.8-9.0 N EOSINOPHIL % (test code = EO%) 2.6 % 0.3-3.7 N BASOPHIL % (test code = BA%) 1.0 % 0.0-2.0 N NUCLEATED RBC % (test code = NRBC%) 0.0 % 0-0 N NEUTROPHIL # (test code = NT#) 3.74 x10 3/uL 2.0-7.6 N IMMATURE GRANULOCYTE # (test code = IG#) 0.08 x10 3/uL 0.00-0.03 H LYMPHOCYTE # (test code = LY#) 1.21 x10 3/uL 1.0-3.8 N MONOCYTE # (test code = MO#) 0.51 x10 3/uL 0.1-0.8 N EOSINOPHIL # (test code = EO#) 0.15 x10 3/uL 0.0-0.2 N BASOPHIL # (test code = BA#) 0.06 x10 3/uL 0.0-0.2 N NUCLEATED RBC # (test code = NRBC#) 0.00 x10 3/uL 0.0-0.1 N MANUAL DIFF REQUIRED (test code = MDIFF) NO RBC [id number] 07:22:00* Test Item Value Reference Range Interpretation Comments ANISOCYTOSIS (test code = ANISO) CBC W/AUTO [id number] 07:22:00* Test Item Value Reference Range Interpretation Comments WHITE BLOOD CELL (test code = WBC) 5.75 x10 3/uL 4.5-11.0 N RED BLOOD CELL (test code = RBC) 2.83 x10 6/uL 4.00-5.60 L HEMOGLOBIN (test code = HGB) 9.5 g/dL 12.5-16.9 L HEMATOCRIT (test code = HCT) 30.5 % 37.5-50.7 L MEAN CELL VOLUME (test code = MCV) 107.8 fL 81.0-99.0 H MEAN CELL HGB (test code = MCH) 33.6 pg 27.0-33.0 H MEAN CELL HGB CONCETRATION (test code = MCHC) 31.1 g/dL 33.0-37. 0 L RED CELL DISTRIBUTION WIDTH CV (test code = RDW) 14.1 % 11.5- 14.5 N RED CELL DISTRIBUTION WIDTH SD (test code = RDW-SD) 55.5 fL 37 .0-54.0 H PLATELET COUNT (test code = PLT) 207 x10 3/uL 150-400 N MEAN PLATELET VOLUME (test code = MPV) 10.1 fL 7.0-9.0 H NEUTROPHIL % (test code = NT%) 65.1 % 56.0-77.0 N IMMATURE GRANULOCYTE % (test code = IG%) 1.4 % 0.0-2.0 N LYMPHOCYTE % (test code = LY%) 21.0 % 14.0-32.0 N MONOCYTE % (test code = MO%) 8.9 % 4.8-9.0 N EOSINOPHIL % (test code = EO%) 2.6 % 0.3-3.7 N BASOPHIL % (test code = BA%) 1.0 % 0.0-2.0 N NUCLEATED RBC % (test code = NRBC%) 0.0 % 0-0 N NEUTROPHIL # (test code = NT#) 3.74 x10 3/uL 2.0-7.6 N IMMATURE GRANULOCYTE # (test code = IG#) 0.08 x10 3/uL 0.00-0.03 H LYMPHOCYTE # (test code = LY#) 1.21 x10 3/uL 1.0-3.8 N MONOCYTE # (test code = MO#) 0.51 x10 3/uL 0.1-0.8 N EOSINOPHIL # (test code = EO#) 0.15 x10 3/uL 0.0-0.2 N BASOPHIL # (test code = BA#) 0.06 x10 3/uL 0.0-0.2 N NUCLEATED RBC # (test code = NRBC#) 0.00 x10 3/uL 0.0-0.1 N MANUAL DIFF REQUIRED (test code = MDIFF) NO RBC [id number] 07:22:00* Test Item Value Reference Range Interpretation Comments ANISOCYTOSIS (test code = ANISO) [id number] 20:19:00* Test Item Value Reference Range Interpretation Comments GLUBED (test code = GLUBED) 121 MG/DL 70-110 H Performed by certified defensive fire control systems operator at [facility] [id number] 12:46:00* Test Item Value Reference Range Interpretation Comments GLUBED (test code = GLUBED) 131 MG/DL 70-110 H Performed by certified defensive fire control systems operator at [facility] [id number] 09:23:00* Test Item Value Reference Range Interpretation Comments GLUBED (test code = GLUBED) 116 MG/DL 70-110 H Performed by certified defensive fire control systems operator at [facility] [id number] 20:12:00* Test Item Value Reference Range Interpretation Comments GLUBED (test code = GLUBED) 189 MG/DL 70-110 H Performed by certified defensive fire control systems operator at [facility] HGB [id number] 19:48:00* Test Item Value Reference Range Interpretation Comments HEMOGLOBIN (test code = HGB) 9.1 g/dL 12.5-16.9 L HEMATOCRIT (test code = HCT) 29.3 % 37.5-50.7 L [id number] 17:07:00* Test Item Value Reference Range Interpretation Comments GLUBED (test code = GLUBED) 150 MG/DL 70-110 H Performed by certified defensive fire control systems operator at [facility] [id number] 12:20:00* Test Item Value Reference Range Interpretation Comments GLUBED (test code = GLUBED) 160 MG/DL 70-110 H Performed by certified defensive fire control systems operator at [facility] HGB [id number] 12:04:00* Test Item Value Reference Range Interpretation Comments HEMOGLOBIN (test code = HGB) 9.0 g/dL 12.5-16.9 L HEMATOCRIT (test code = HCT) 28.2 % 37.5-50.7 L [id number] 20:23:00* Test Item Value Reference Range Interpretation Comments GLUBED (test code = GLUBED) 177 MG/DL 70-110 H Performed by certified defensive fire control systems operator at [facility] [id number] 16:50:00* Test Item Value Reference Range Interpretation Comments GLUBED (test code = GLUBED) 136 MG/DL 70-110 H Performed by certified defensive fire control systems operator at [facility] [id number] 12:06:00* Test Item Value Reference Range Interpretation Comments GLUBED (test code = GLUBED) 110 MG/DL 70-110 N Performed by certified defensive fire control systems operator at [facility] BASIC METABOLIC [id number] 09:03:00* Test Item Value Reference Range Interpretation Comments SODIUM (test code = NA) 138 mEq/L 134-147 N POTASSIUM (test code = K) 3.7 mEq/L 3.4-5.0 N CHLORIDE (test code = CL) 108 mEq/L 100-108 N CARBON DIOXIDE (test code = CO2) 20 mEq/L 21-33 L ANION GAP (test code = GAP) 14 0-20 N GLUCOSE (test code = GLU) 89 mg/dL 70-110 N BLOOD UREA NITROGEN (test code = BUN) 17 mg/dL 7-18 GLOMERULAR FILTRATION RATE (test code = GFR) 92.1 70-80 H Units of measure = ml/min/1.73 m2 CREATININE (test code = CREAT) 0.8 mg/dL 0.6-1.3 N CALCIUM (test code = CA) 9.5 mg/dL 8.0-10.5 N CBC W/AUTO [id number] 08:12:00* Test Item Value Reference Range Interpretation Comments WHITE BLOOD CELL (test code = WBC) 5.50 x10 3/uL 4.5-11.0 N RED BLOOD CELL (test code = RBC) 2.77 x10 6/uL 4.00-5.60 L HEMOGLOBIN (test code = HGB) 9.2 g/dL 12.5-16.9 L HEMATOCRIT (test code = HCT) 29.8 % 37.5-50.7 L MEAN CELL VOLUME (test code = MCV) 107.6 fL 81.0-99.0 H MEAN CELL HGB (test code = MCH) 33.2 pg 27.0-33.0 H MEAN CELL HGB CONCETRATION (test code = MCHC) 30.9 g/dL 33.0-37. 0 L RED CELL DISTRIBUTION WIDTH CV (test code = RDW) 13.6 % 11.5- 14.5 N RED CELL DISTRIBUTION WIDTH SD (test code = RDW-SD) 52.7 fL 37 .0-54.0 N PLATELET COUNT (test code = PLT) 175 x10 3/uL 150-400 N MEAN PLATELET VOLUME (test code = MPV) 10.2 fL 7.0-9.0 H NEUTROPHIL % (test code = NT%) 60.2 % 56.0-77.0 N IMMATURE GRANULOCYTE % (test code = IG%) 1.1 % 0.0-2.0 N LYMPHOCYTE % (test code = LY%) 26.4 % 14.0-32.0 N MONOCYTE % (test code = MO%) 8.7 % 4.8-9.0 N EOSINOPHIL % (test code = EO%) 2.5 % 0.3-3.7 N BASOPHIL % (test code = BA%) 1.1 % 0.0-2.0 N NUCLEATED RBC % (test code = NRBC%) 0.0 % 0-0 N NEUTROPHIL # (test code = NT#) 3.31 x10 3/uL 2.0-7.6 N IMMATURE GRANULOCYTE # (test code = IG#) 0.06 x10 3/uL 0.00-0.03 H LYMPHOCYTE # (test code = LY#) 1.45 x10 3/uL 1.0-3.8 N MONOCYTE # (test code = MO#) 0.48 x10 3/uL 0.1-0.8 N EOSINOPHIL # (test code = EO#) 0.14 x10 3/uL 0.0-0.2 N BASOPHIL # (test code = BA#) 0.06 x10 3/uL 0.0-0.2 N NUCLEATED RBC # (test code = NRBC#) 0.00 x10 3/uL 0.0-0.1 N MANUAL DIFF REQUIRED (test code = MDIFF) NO [id number] 08:00:00* Test Item Value Reference Range Interpretation Comments GLUBED (test code = GLUBED) 100 MG/DL 70-110 N Performed by certified defensive fire control systems operator at [facility] [id number] 20:00:00* Test Item Value Reference Range Interpretation Comments GLUBED (test code = GLUBED) 147 MG/DL 70-110 H Performed by certified defensive fire control systems operator at [facility] [id number] 17:50:00* Test Item Value Reference Range Interpretation Comments GLUBED (test code = GLUBED) 113 MG/DL 70-110 H Performed by certified defensive fire control systems operator at [facility] [id number] 12:12:00* Test Item Value Reference Range Interpretation Comments GLUBED (test code = GLUBED) 113 MG/DL 70-110 H Performed by certified defensive fire control systems operator at [facility] CBC W/AUTO [id number] 11:19:00* Test Item Value Reference Range Interpretation Comments WHITE BLOOD CELL (test code = WBC) 4.98 x10 3/uL 4.5-11.0 N RED BLOOD CELL (test code = RBC) 2.70 x10 6/uL 4.00-5.60 L HEMOGLOBIN (test code = HGB) 9.0 g/dL 12.5-16.9 L HEMATOCRIT (test code = HCT) 28.5 % 37.5-50.7 L MEAN CELL VOLUME (test code = MCV) 105.6 fL 81.0-99.0 H MEAN CELL HGB (test code = MCH) 33.3 pg 27.0-33.0 H MEAN CELL HGB CONCETRATION (test code = MCHC) 31.6 g/dL 33.0-37. 0 L RED CELL DISTRIBUTION WIDTH CV (test code = RDW) 13.4 % 11.5- 14.5 N RED CELL DISTRIBUTION WIDTH SD (test code = RDW-SD) 50.9 fL 37 .0-54.0 N PLATELET COUNT (test code = PLT) 169 x10 3/uL 150-400 N MEAN PLATELET VOLUME (test code = MPV) 10.0 fL 7.0-9.0 H NEUTROPHIL % (test code = NT%) 56.1 % 56.0-77.0 N IMMATURE GRANULOCYTE % (test code = IG%) 0.8 % 0.0-2.0 N LYMPHOCYTE % (test code = LY%) 32.3 % 14.0-32.0 H MONOCYTE % (test code = MO%) 7.4 % 4.8-9.0 N EOSINOPHIL % (test code = EO%) 2.2 % 0.3-3.7 N BASOPHIL % (test code = BA%) 1.2 % 0.0-2.0 N NUCLEATED RBC % (test code = NRBC%) 0.0 % 0-0 N NEUTROPHIL # (test code = NT#) 2.79 x10 3/uL 2.0-7.6 N IMMATURE GRANULOCYTE # (test code = IG#) 0.04 x10 3/uL 0.00-0.03 H LYMPHOCYTE # (test code = LY#) 1.61 x10 3/uL 1.0-3.8 N MONOCYTE # (test code = MO#) 0.37 x10 3/uL 0.1-0.8 N EOSINOPHIL # (test code = EO#) 0.11 x10 3/uL 0.0-0.2 N BASOPHIL # (test code = BA#) 0.06 x10 3/uL 0.0-0.2 N NUCLEATED RBC # (test code = NRBC#) 0.00 x10 3/uL 0.0-0.1 N MANUAL DIFF REQUIRED (test code = MDIFF) NO RBC [id number] 11:19:00* Test Item Value Reference Range Interpretation Comments ANISOCYTOSIS (test code = ANISO) 1+ MACROCYTOSIS (test code = MACR) 1+ CBC W/AUTO [id number] 08:50:00* Test Item Value Reference Range Interpretation Comments WHITE BLOOD CELL (test code = WBC) 4.98 x10 3/uL 4.5-11.0 N RED BLOOD CELL (test code = RBC) 2.70 x10 6/uL 4.00-5.60 L HEMOGLOBIN (test code = HGB) 9.0 g/dL 12.5-16.9 L HEMATOCRIT (test code = HCT) 28.5 % 37.5-50.7 L MEAN CELL VOLUME (test code = MCV) 105.6 fL 81.0-99.0 H MEAN CELL HGB (test code = MCH) 33.3 pg 27.0-33.0 H MEAN CELL HGB CONCETRATION (test code = MCHC) 31.6 g/dL 33.0-37. 0 L RED CELL DISTRIBUTION WIDTH CV (test code = RDW) 13.4 % 11.5- 14.5 N RED CELL DISTRIBUTION WIDTH SD (test code = RDW-SD) 50.9 fL 37 .0-54.0 N PLATELET COUNT (test code = PLT) 169 x10 3/uL 150-400 N MEAN PLATELET VOLUME (test code = MPV) 10.0 fL 7.0-9.0 H NEUTROPHIL % (test code = NT%) 56.1 % 56.0-77.0 N IMMATURE GRANULOCYTE % (test code = IG%) 0.8 % 0.0-2.0 N LYMPHOCYTE % (test code = LY%) 32.3 % 14.0-32.0 H MONOCYTE % (test code = MO%) 7.4 % 4.8-9.0 N EOSINOPHIL % (test code = EO%) 2.2 % 0.3-3.7 N BASOPHIL % (test code = BA%) 1.2 % 0.0-2.0 N NUCLEATED RBC % (test code = NRBC%) 0.0 % 0-0 N NEUTROPHIL # (test code = NT#) 2.79 x10 3/uL 2.0-7.6 N IMMATURE GRANULOCYTE # (test code = IG#) 0.04 x10 3/uL 0.00-0.03 H LYMPHOCYTE # (test code = LY#) 1.61 x10 3/uL 1.0-3.8 N MONOCYTE # (test code = MO#) 0.37 x10 3/uL 0.1-0.8 N EOSINOPHIL # (test code = EO#) 0.11 x10 3/uL 0.0-0.2 N BASOPHIL # (test code = BA#) 0.06 x10 3/uL 0.0-0.2 N NUCLEATED RBC # (test code = NRBC#) 0.00 x10 3/uL 0.0-0.1 N MANUAL DIFF REQUIRED (test code = MDIFF) NO RBC [id number] 08:50:00* Test Item Value Reference Range Interpretation Comments ANISOCYTOSIS (test code = ANISO) CBC W/AUTO [id number] 08:50:00* Test Item Value Reference Range Interpretation Comments WHITE BLOOD CELL (test code = WBC) 4.98 x10 3/uL 4.5-11.0 N RED BLOOD CELL (test code = RBC) 2.70 x10 6/uL 4.00-5.60 L HEMOGLOBIN (test code = HGB) 9.0 g/dL 12.5-16.9 L HEMATOCRIT (test code = HCT) 28.5 % 37.5-50.7 L MEAN CELL VOLUME (test code = MCV) 105.6 fL 81.0-99.0 H MEAN CELL HGB (test code = MCH) 33.3 pg 27.0-33.0 H MEAN CELL HGB CONCETRATION (test code = MCHC) 31.6 g/dL 33.0-37. 0 L RED CELL DISTRIBUTION WIDTH CV (test code = RDW) 13.4 % 11.5- 14.5 N RED CELL DISTRIBUTION WIDTH SD (test code = RDW-SD) 50.9 fL 37 .0-54.0 N PLATELET COUNT (test code = PLT) 169 x10 3/uL 150-400 N MEAN PLATELET VOLUME (test code = MPV) 10.0 fL 7.0-9.0 H NEUTROPHIL % (test code = NT%) 56.1 % 56.0-77.0 N IMMATURE GRANULOCYTE % (test code = IG%) 0.8 % 0.0-2.0 N LYMPHOCYTE % (test code = LY%) 32.3 % 14.0-32.0 H MONOCYTE % (test code = MO%) 7.4 % 4.8-9.0 N EOSINOPHIL % (test code = EO%) 2.2 % 0.3-3.7 N BASOPHIL % (test code = BA%) 1.2 % 0.0-2.0 N NUCLEATED RBC % (test code = NRBC%) 0.0 % 0-0 N NEUTROPHIL # (test code = NT#) 2.79 x10 3/uL 2.0-7.6 N IMMATURE GRANULOCYTE # (test code = IG#) 0.04 x10 3/uL 0.00-0.03 H LYMPHOCYTE # (test code = LY#) 1.61 x10 3/uL 1.0-3.8 N MONOCYTE # (test code = MO#) 0.37 x10 3/uL 0.1-0.8 N EOSINOPHIL # (test code = EO#) 0.11 x10 3/uL 0.0-0.2 N BASOPHIL # (test code = BA#) 0.06 x10 3/uL 0.0-0.2 N NUCLEATED RBC # (test code = NRBC#) 0.00 x10 3/uL 0.0-0.1 N MANUAL DIFF REQUIRED (test code = MDIFF) NO RBC [id number] 08:50:00* Test Item Value Reference Range Interpretation Comments ANISOCYTOSIS (test code = ANISO) [id number] 08:04:00* Test Item Value Reference Range Interpretation Comments GLUBED (test code = GLUBED) 106 MG/DL 70-110 N Performed by certified defensive fire control systems operator at [facility] BASIC METABOLIC [id number] 07:58:00* Test Item Value Reference Range Interpretation Comments SODIUM (test code = NA) 138 mEq/L 134-147 N POTASSIUM (test code = K) 3.7 mEq/L 3.4-5.0 N CHLORIDE (test code = CL) 109 mEq/L 100-108 H CARBON DIOXIDE (test code = CO2) 21 mEq/L 21-33 N ANION GAP (test code = GAP) 12 0-20 N GLUCOSE (test code = GLU) 100 mg/dL 70-110 N BLOOD UREA NITROGEN (test code = BUN) 13 mg/dL 7-18 N GLOMERULAR FILTRATION RATE (test code = GFR) 92.1 70-80 H Units of measure = ml/min/1.73 m2 CREATININE (test code = CREAT) 0.8 mg/dL 0.6-1.3 N CALCIUM (test code = CA) 9.2 mg/dL 8.0-10.5 N [id number] 20:55:00* Test Item Value Reference Range Interpretation Comments GLUBED (test code = GLUBED) 166 MG/DL 70-110 H Performed by certified defensive fire control systems operator at [facility] [id number] 17:33:00* Test Item Value Reference Range Interpretation Comments GLUBED (test code = GLUBED) 143 MG/DL 70-110 H Performed by certified defensive fire control systems operator at [facility] [id number] 12:56:00* Test Item Value Reference Range Interpretation Comments GLUBED (test code = GLUBED) 127 MG/DL 70-110 H Performed by certified defensive fire control systems operator at [facility] [id number] 09:06:00* Test Item Value Reference Range Interpretation Comments GLUBED (test code = GLUBED) 112 MG/DL 70-110 H Performed by certified defensive fire control systems operator at [facility] BASIC METABOLIC [id number] 08:53:00* Test Item Value Reference Range Interpretation Comments SODIUM (test code = NA) 137 mEq/L 134-147 N POTASSIUM (test code = K) 3.7 mEq/L 3.4-5.0 N CHLORIDE (test code = CL) 108 mEq/L 100-108 N CARBON DIOXIDE (test code = CO2) 20 mEq/L 21-33 L ANION GAP (test code = GAP) 13 0-20 N GLUCOSE (test code = GLU) 98 mg/dL 70-110 N BLOOD UREA NITROGEN (test code = BUN) 13 mg/dL 7-18 GLOMERULAR FILTRATION RATE (test code = GFR) 92.1 70-80 H Units of measure = ml/min/1.73 m2 CREATININE (test code = CREAT) 0.8 mg/dL 0.6-1.3 N CALCIUM (test code = CA) 9.4 mg/dL 8.0-10.5 N CBC W/AUTO [id number] 07:14:00* Test Item Value Reference Range Interpretation Comments WHITE BLOOD CELL (test code = WBC) 5.60 x10 3/uL 4.5-11.0 N RED BLOOD CELL (test code = RBC) 2.89 x10 6/uL 4.00-5.60 L HEMOGLOBIN (test code = HGB) 9.5 g/dL 12.5-16.9 L HEMATOCRIT (test code = HCT) 30.4 % 37.5-50.7 L MEAN CELL VOLUME (test code = MCV) 105.2 fL 81.0-99.0 H MEAN CELL HGB (test code = MCH) 32.9 pg 27.0-33.0 N MEAN CELL HGB CONCETRATION (test code = MCHC) 31.3 g/dL 33.0-37. 0 L RED CELL DISTRIBUTION WIDTH CV (test code = RDW) 13.5 % 11.5- 14.5 N RED CELL DISTRIBUTION WIDTH SD (test code = RDW-SD) 51.6 fL 37 .0-54.0 N PLATELET COUNT (test code = PLT) 167 x10 3/uL 150-400 N MEAN PLATELET VOLUME (test code = MPV) 9.9 fL 7.0-9.0 H NEUTROPHIL % (test code = NT%) 56.5 % 56.0-77.0 N IMMATURE GRANULOCYTE % (test code = IG%) 0.9 % 0.0-2.0 N LYMPHOCYTE % (test code = LY%) 30.4 % 14.0-32.0 N MONOCYTE % (test code = MO%) 8.6 % 4.8-9.0 N EOSINOPHIL % (test code = EO%) 2.5 % 0.3-3.7 N BASOPHIL % (test code = BA%) 1.1 % 0.0-2.0 N NUCLEATED RBC % (test code = NRBC%) 0.0 % 0-0 N NEUTROPHIL # (test code = NT#) 3.17 x10 3/uL 2.0-7.6 N IMMATURE GRANULOCYTE # (test code = IG#) 0.05 x10 3/uL 0.00-0.03 H LYMPHOCYTE # (test code = LY#) 1.70 x10 3/uL 1.0-3.8 N MONOCYTE # (test code = MO#) 0.48 x10 3/uL 0.1-0.8 N EOSINOPHIL # (test code = EO#) 0.14 x10 3/uL 0.0-0.2 N BASOPHIL # (test code = BA#) 0.06 x10 3/uL 0.0-0.2 N NUCLEATED RBC # (test code = NRBC#) 0.00 x10 3/uL 0.0-0.1 N MANUAL DIFF REQUIRED (test code = MDIFF) NO [id number] 20:45:00* Test Item Value Reference Range Interpretation Comments GLUBED (test code = GLUBED) 169 MG/DL 70-110 H Performed by certified defensive fire control systems operator at [facility] [id number] 17:41:00* Test Item Value Reference Range Interpretation Comments GLUBED (test code = GLUBED) 130 MG/DL 70-110 H Performed by certified defensive fire control systems operator at [facility] [id number] 15:30:00* Test Item Value Reference Range Interpretation Comments GLUBED (test code = GLUBED) 132 MG/DL 70-110 H Performed by certified defensive fire control systems operator at [facility] [id number] 08:24:00* Test Item Value Reference Range Interpretation Comments GLUBED (test code = GLUBED) 104 MG/DL 70-110 N Performed by certified defensive fire control systems operator at [facility] CBC W/AUTO [id number] 08:05:00* Test Item Value Reference Range Interpretation Comments WHITE BLOOD CELL (test code = WBC) 4.93 x10 3/uL 4.5-11.0 N RED BLOOD CELL (test code = RBC) 2.63 x10 6/uL 4.00-5.60 L HEMOGLOBIN (test code = HGB) 8.8 g/dL 12.5-16.9 L HEMATOCRIT (test code = HCT) 27.5 % 37.5-50.7 L MEAN CELL VOLUME (test code = MCV) 104.6 fL 81.0-99.0 H MEAN CELL HGB (test code = MCH) 33.5 pg 27.0-33.0 H MEAN CELL HGB CONCETRATION (test code = MCHC) 32.0 g/dL 33.0-37. 0 L RED CELL DISTRIBUTION WIDTH CV (test code = RDW) 13.2 % 11.5- 14.5 N RED CELL DISTRIBUTION WIDTH SD (test code = RDW-SD) 50.5 fL 37 .0-54.0 N PLATELET COUNT (test code = PLT) 169 x10 3/uL 150-400 N MEAN PLATELET VOLUME (test code = MPV) 9.8 fL 7.0-9.0 H NEUTROPHIL % (test code = NT%) 54.7 % 56.0-77.0 L IMMATURE GRANULOCYTE % (test code = IG%) 1.0 % 0.0-2.0 N LYMPHOCYTE % (test code = LY%) 32.0 % 14.0-32.0 N MONOCYTE % (test code = MO%) 8.5 % 4.8-9.0 N EOSINOPHIL % (test code = EO%) 2.4 % 0.3-3.7 N BASOPHIL % (test code = BA%) 1.4 % 0.0-2.0 N NUCLEATED RBC % (test code = NRBC%) 0.0 % 0-0 N NEUTROPHIL # (test code = NT#) 2.69 x10 3/uL 2.0-7.6 N IMMATURE GRANULOCYTE # (test code = IG#) 0.05 x10 3/uL 0.00-0.03 H LYMPHOCYTE # (test code = LY#) 1.58 x10 3/uL 1.0-3.8 N MONOCYTE # (test code = MO#) 0.42 x10 3/uL 0.1-0.8 N EOSINOPHIL # (test code = EO#) 0.12 x10 3/uL 0.0-0.2 N BASOPHIL # (test code = BA#) 0.07 x10 3/uL 0.0-0.2 N NUCLEATED RBC # (test code = NRBC#) 0.00 x10 3/uL 0.0-0.1 N MANUAL DIFF REQUIRED (test code = MDIFF) NO BASIC METABOLIC [id number] 07:41:00* Test Item Value Reference Range Interpretation Comments SODIUM (test code = NA) 138 mEq/L 134-147 N POTASSIUM (test code = K) 3.7 mEq/L 3.4-5.0 N CHLORIDE (test code = CL) 109 mEq/L 100-108 H CARBON DIOXIDE (test code = CO2) 22 mEq/L 21-33 N ANION GAP (test code = GAP) 11 0-20 N GLUCOSE (test code = GLU) 104 mg/dL 70-110 N BLOOD UREA NITROGEN (test code = BUN) 9 mg/dL 7-18 GLOMERULAR FILTRATION RATE (test code = GFR) 107.4 70-80 H Units of measure = ml/min/1.73 m2 CREATININE (test code = CREAT) 0.7 mg/dL 0.6-1.3 CALCIUM (test code = CA) 8.8 mg/dL 8.0-10.5 N [id number] 21:00:00* Test Item Value Reference Range Interpretation Comments GLUBED (test code = GLUBED) 108 MG/DL 70-110 N Performed by certified defensive fire control systems operator at [facility] [id number] 16:59:00* Test Item Value Reference Range Interpretation Comments GLUBED (test code = GLUBED) 152 MG/DL 70-110 H Performed by certified defensive fire control systems operator at [facility] CBC W/AUTO [id number] 10:35:00* Test Item Value Reference Range Interpretation Comments WHITE BLOOD CELL (test code = WBC) 5.75 x10 3/uL 4.5-11.0 N RED BLOOD CELL (test code = RBC) 2.75 x10 6/uL 4.00-5.60 L HEMOGLOBIN (test code = HGB) 9.2 g/dL 12.5-16.9 L HEMATOCRIT (test code = HCT) 28.7 % 37.5-50.7 L MEAN CELL VOLUME (test code = MCV) 104.4 fL 81.0-99.0 H MEAN CELL HGB (test code = MCH) 33.5 pg 27.0-33.0 H MEAN CELL HGB CONCETRATION (test code = MCHC) 32.1 g/dL 33.0-37. 0 L RED CELL DISTRIBUTION WIDTH CV (test code = RDW) 13.3 % 11.5- 14.5 N RED CELL DISTRIBUTION WIDTH SD (test code = RDW-SD) 51.0 fL 37 .0-54.0 N PLATELET COUNT (test code = PLT) 176 x10 3/uL 150-400 N MEAN PLATELET VOLUME (test code = MPV) 9.3 fL 7.0-9.0 H NEUTROPHIL % (test code = NT%) 62.1 % 56.0-77.0 N IMMATURE GRANULOCYTE % (test code = IG%) 0.9 % 0.0-2.0 N LYMPHOCYTE % (test code = LY%) 26.1 % 14.0-32.0 N MONOCYTE % (test code = MO%) 7.1 % 4.8-9.0 N EOSINOPHIL % (test code = EO%) 2.6 % 0.3-3.7 N BASOPHIL % (test code = BA%) 1.2 % 0.0-2.0 N NUCLEATED RBC % (test code = NRBC%) 0.0 % 0-0 N NEUTROPHIL # (test code = NT#) 3.57 x10 3/uL 2.0-7.6 N IMMATURE GRANULOCYTE # (test code = IG#) 0.05 x10 3/uL 0.00-0.03 H LYMPHOCYTE # (test code = LY#) 1.50 x10 3/uL 1.0-3.8 N MONOCYTE # (test code = MO#) 0.41 x10 3/uL 0.1-0.8 N EOSINOPHIL # (test code = EO#) 0.15 x10 3/uL 0.0-0.2 N BASOPHIL # (test code = BA#) 0.07 x10 3/uL 0.0-0.2 N NUCLEATED RBC # (test code = NRBC#) 0.00 x10 3/uL 0.0-0.1 N MANUAL DIFF REQUIRED (test code = MDIFF) NO [id number] 08:32:00* Test Item Value Reference Range Interpretation Comments GLUBED (test code = GLUBED) 101 MG/DL 70-110 N Performed by certified defensive fire control systems operator at [facility] BASIC METABOLIC [id number] 08:24:00* Test Item Value Reference Range Interpretation Comments SODIUM (test code = NA) 136 mEq/L 134-147 N POTASSIUM (test code = K) 3.8 mEq/L 3.4-5.0 N CHLORIDE (test code = CL) 109 mEq/L 100-108 H CARBON DIOXIDE (test code = CO2) 19 mEq/L 21-33 L ANION GAP (test code = GAP) 12 0-20 N GLUCOSE (test code = GLU) 100 mg/dL 70-110 N BLOOD UREA NITROGEN (test code = BUN) 16 mg/dL 7-18 GLOMERULAR FILTRATION RATE (test code = GFR) 71.2 70-80 N Units of measure = ml/min/1.73 m2 CREATININE (test code = CREAT) 1.0 mg/dL 0.6-1.3 CALCIUM (test code = CA) 8.8 mg/dL 8.0-10.5 N [id number] 22:45:00* Test Item Value Reference Range Interpretation Comments GLUBED (test code = GLUBED) 150 MG/DL 70-110 H Performed by certified defensive fire control systems operator at [facility] [id number] 20:40:00* Test Item Value Reference Range Interpretation Comments GLUBED (test code = GLUBED) 110 MG/DL 70-110 N Performed by certified defensive fire control systems operator at [facility] [id number] 13:06:00* Test Item Value Reference Range Interpretation Comments GLUBED (test code = GLUBED) 133 MG/DL 70-110 H Performed by certified defensive fire control systems operator at [facility] [id number] 08:37:00* Test Item Value Reference Range Interpretation Comments GLUBED (test code = GLUBED) 102 MG/DL 70-110 N Performed by certified defensive fire control systems operator at [facility] LACTIC ACID [id number] 01:04:00* Test Item Value Reference Range Interpretation Comments LACTIC ACID REPEAT (test code = LACTR) 1.3 mmol/l 0.4-1.9 N LACTIC [id number] 19:18:00* Test Item Value Reference Range Interpretation Comments LACTIC ACID (test code = LACT) 2.2 mmol/L 0.4-1.9 H BASIC METABOLIC [id number] 19:16:00* Test Item Value Reference Range Interpretation Comments SODIUM (test code = NA) 132 mEq/L 134-147 L POTASSIUM (test code = K) 4.5 mEq/L 3.4-5.0 N CHLORIDE (test code = CL) 102 mEq/L 100-108 N CARBON DIOXIDE (test code = CO2) 19 mEq/L 21-33 L ANION GAP (test code = GAP) 16 0-20 N GLUCOSE (test code = GLU) 117 mg/dL 70-110 H BLOOD UREA NITROGEN (test code = BUN) 24 mg/dL 7-18 H GLOMERULAR FILTRATION RATE (test code = GFR) 44.6 70-80 L Units of measure = ml/min/1.73 m2 CREATININE (test code = CREAT) 1.5 mg/dL 0.6-1.3 H CALCIUM (test code = CA) 10.4 mg/dL 8.0-10.5 N CBC W/AUTO [id number] 18:56:00* Test Item Value Reference Range Interpretation Comments WHITE BLOOD CELL (test code = WBC) 7.80 x10 3/uL 4.5-11.0 N RED BLOOD CELL (test code = RBC) 3.52 x10 6/uL 4.00-5.60 L HEMOGLOBIN (test code = HGB) 11.8 g/dL 12.5-16.9 L HEMATOCRIT (test code = HCT) 36.7 % 37.5-50.7 L MEAN CELL VOLUME (test code = MCV) 104.3 fL 81.0-99.0 H MEAN CELL HGB (test code = MCH) 33.5 pg 27.0-33.0 H MEAN CELL HGB CONCETRATION (test code = MCHC) 32.2 g/dL 33.0-37. 0 L RED CELL DISTRIBUTION WIDTH CV (test code = RDW) 13.9 % 11.5- 14.5 N RED CELL DISTRIBUTION WIDTH SD (test code = RDW-SD) 53.6 fL 37 .0-54.0 N PLATELET COUNT (test code = PLT) 273 x10 3/uL 150-400 N MEAN PLATELET VOLUME (test code = MPV) 9.7 fL 7.0-9.0 H NEUTROPHIL % (test code = NT%) 60.1 % 56.0-77.0 N IMMATURE GRANULOCYTE % (test code = IG%) 1.2 % 0.0-2.0 N LYMPHOCYTE % (test code = LY%) 27.7 % 14.0-32.0 N MONOCYTE % (test code = MO%) 8.7 % 4.8-9.0 N EOSINOPHIL % (test code = EO%) 1.8 % 0.3-3.7 N BASOPHIL % (test code = BA%) 0.5 % 0.0-2.0 N NUCLEATED RBC % (test code = NRBC%) 0.0 % 0-0 N NEUTROPHIL # (test code = NT#) 4.69 x10 3/uL 2.0-7.6 N IMMATURE GRANULOCYTE # (test code = IG#) 0.09 x10 3/uL 0.00-0.03 H LYMPHOCYTE # (test code = LY#) 2.16 x10 3/uL 1.0-3.8 N MONOCYTE # (test code = MO#) 0.68 x10 3/uL 0.1-0.8 N EOSINOPHIL # (test code = EO#) 0.14 x10 3/uL 0.0-0.2 N BASOPHIL # (test code = BA#) 0.04 x10 3/uL 0.0-0.2 N NUCLEATED RBC # (test code = NRBC#) 0.00 x10 3/uL 0.0-0.1 N MANUAL DIFF REQUIRED (test code = MDIFF) NO - CT ABD PELVIS [id number] 09:41:00 Name: [facility] Danielle Pavon : 1935 Age/S: 84 / M [address] [place] [address] Unit #: [id number] Loc: [place] [address] Phys: Andre Cain MD Acct: [id number] Dis Date: Status: REG ER PHONE #: [phone] Exam Date: 03/20/2020909 FAX #: [phone] Reason: fall. pain EXAMS: CPT CODE: [id number] CT ABD PELVIS W/CONT [address]31 CT chest with contrast CT abdomen and pelvis with contrast 03/20/2020 HISTORY: Pain after fall. PROCEDURE: Multiple axial images from the lung apices to the pubic sepsis are obtained after the intravenous injection of 100 mL Isovue-300. Coronal and sagittal reconstructed images were performed CT imaging performed at this location utilizes radiation dose optimization techniques which include one or more of the following: -Automated exposure control - Adjustment of the mA and/or kV according to patient size -Use of iterative reconstruction technique CT Radiation Dose DLP 653.81 mGy-cm FINDINGS: CT CHEST: There is minimal atelectasis in the lung bases. There is mild subpleural scarring throughout both lungs, right greater than left. No consolidation, pleural effusion, or pneumothorax is present. Midline sternotomy wires are present. There is no lucency to suggest an acute fracture. No enlarged lymph nodes are present. Heart size is normal. Aorta has normal caliber but does contain calcifications. No mediastinal hematoma is noted. No lymphadenopathy is present. CT ABDOMEN AND PELVIS: Gallstones are present. Multiple hepatic cysts are present. No acute injury to the liver, spleen, pancreas, adrenal glands, or kidneys is present. Bilateral renal lobulations are noted. Left renal cyst is noted. IVC filter is noted. Aortic calcifications are present without aneurysmal dilatation. No mesenteric or retroperitoneal hematoma is noted. Mild stool in the colon is present. No bowel di latation is present. No free air or fluid collection is present. Appendi x is normal caliber. Urinary bladder is collapsed around a Barron catheter . No lymphadenopathy is present. Prostate resection has been performed. There is no acute fracture identified. No aggressive lesion is present. IMPRESSION: 1. No acute process within chest, abdomen, or pelvis identified. 2. Cholelithiasis. 3. Hepatic and left r enal cysts. 4. Mild chronic interstitial lung disease. SL: [id number] PAGE 1 Signed Report (CONTINUED) Name: CARMEN CH : 1935 Age/S: 84 / M [address] [place] [address] Unit #: [id number] Loc: [place] [address] Phys: Andre Cain MD Acct: [id number] Dis Date: Status: REG ER PHONE #: [phone] Exam Date: 03/20/2020909 FAX #: [phone] Reason: fall. pain EXAMS: CPT CODE: [id number] ABD PELVIS W/CONT 13999 < Continued> at 0941 Reported and signed by: Peyman Galvin M.D. CC: Jose Miguel Vanessa MD Technologist:RT Sharri(R)(CT) CTDI: DLP: Trnscb Date/Time: 03/20/2020 (940) [email or web address] Orig Print D/T: S: 03/20/2020 (0944) PAGE 2 Signed Report - CT CHEST [id number] 09:41:00 Name: CARMEN CH Lake : 1935 Age/S: 84 / M [address] [place] [address] Unit #: [id number] Loc: [place] [address] Phys: Andre Cain MD Acct: [id number] Dis Date: Status: REG ER PHONE #: [phone] Exam Date: 03/20/2020909 FAX #: [phone] Reason: fall. pain EXAMS: CPT CODE: [id number] CT CHEST W/CONTRAST [address] CT chest with contrast CT abdomen and pelvis with contrast 03/20/2020 HISTORY: Pain after fall. PROCEDURE: Multiple axial images from the lung apices to the pubic sepsis are obtained after the intravenous injection of 100 mL Isovue-300. Coronal and sagittal reconstructed images were performed CT imaging performed at this location utilizes radiation dose optimization techniques which include one or more of the following: -Automated exposure control -Adjustment of the mA and/or kV according to patient size -Use of iterative reconstruction technique CT Radiation Dose DLP 653.81 mGy-cm FINDINGS: CT CHEST: There is minimal atelectasis in the lung bases. There is mild subpleural scarring throughout both lungs, right greater than left. No consolidation, pleural effusion, or pneumothorax is present. Midline sternotomy wires are present. There is no lucency to suggest an acute fracture. No enlarged lymph nodes are present. Heart size is normal. Aorta has normal caliber but does contain calcifications. No mediastinal hematoma is noted. No lymphadenopathy is present. CT ABDOMEN AND PELVIS: Gallstones are present. Multiple hepatic cysts are present. No acute injury to the liver, spleen, pancreas, adrenal glands, or kidneys is present. Bilateral renal lobulations are no judson. Left renal cyst is noted. IVC filter is noted. Aortic calcificatio ns are present without aneurysmal dilatation. No mesenteric or retroperit knowles hematoma is noted. Mild stool in the colon is present. No bowel di latation is present. No free air or fluid collection is present. Appendi x is normal caliber. Urinary bladder is collapsed around a Barron catheter . No lymphadenopathy is present. Prostate resection has been performed. There is no acute fracture identified. No aggressive lesion is present. IMPRESSION: 1. No acute process within chest, abdomen, or pelvis identified. 2. Cholelithiasis. 3. Hepatic and left r enal cysts. 4. Mild chronic interstitial lung disease. SL: [id number] PAGE 1 Signed Report (CONTINUED) Name: CARMEN CH [facility] : 1935 Age/S: 84 / M [address] [place] [address] Unit #: [id number] Loc: [place] [address] Phys: Andre Cain MD Acct: [id number] Dis Date: Status: REG ER PHONE #: [phone] Exam Date: 03/20/2020 0910 FAX #: [phone] Reason: fall. pain EXAMS: CPT CODE: [id number] CHEST W/CONTRAST 80806 < Continued> at 0941 Reported and signed by: Peyman Galvin M.D. CC: Jose Miguel Vanessa MD Technologist:Jade Brewer, RT(R)(CT) CTDI: DLP: Trnscb Date/Time: 03/20/2020 (940) t.[email or web address] Orig Print D/T: S: 03/20/2020 (3873) PAGE 2 Signed Report - CT C-SPINE W/O [id number] 09:32:00 [facility] 1935 Age/S: 84 / M [address] [place] [address] Unit #: [id number] Loc: [place] [address] Phys: Andre Cain MD Acct: [id number] Dis Date: Status: REG ER PHONE #: [phone] Exam Date: 03/20/2020910 FAX #: [phone] Reason: fall. pain EXAMS: CPT CODE: [id number] CT C-SPINE W/O CONT 57419 CT cervical spine without contrast 03/20/2020 HISTORY: Neck pain after fall PROCEDURE: Multiple axial images from the skull base to the thoracic inlet were obtained without contrast. Coronal and sagittal reconstructed images were performed CT imaging performed at this location utilizes radiation dose optimization techniques which include one or more of the following: - Automated exposure control -Adjustment of the mA and/or kV according to patient size -Use of iterative reconstruction technique CT Radiation Dose DLP 272.52 mGy-cm No prior exams are available for comparison FINDINGS: There is straightening of the cervical spine. Vertebral body heights are maintained. Alignment is preserved. There is no acute fracture identified. No aggressive lesion is present. No dislo cation is present. The craniocervical junction is intact. Moderate disc space narrowing and osteophytes are present at C5-6 resulting in moderate bilateral neural foraminal narrowing and mild spinal canal stenosis. Mild space narrowing and osteophytes at C6-7 result in moderate left and mild right neural foraminal narrowing and mild spinal canal stenosis. The visualized mastoid air cells are clear. There is mild bilateral carotid bulb plaque. Lung apices are clear. No prevertebral soft tissue swelling is noted. No enlarged nodes are present. IMPRESSION: 1. No fracture or dislocation involving cervical spine. 2. Stra ightening of cervical spine may be related to patient positioning or mus omid spasm. 3. 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 SL: [id number] at 0932 Reported and signed by: Peyman Galvin M.D. PAGE 1 Signed Report (CONTINUED) Name: CARMEN LEIGH [facility] : 1935 Age/S: 84 / M [address] [place] [address] Unit #: [id number] L oc: [place] [address] Phys: Andre Cain MD Acct: [id number] Dis Date: Status: REG ER PHONE #: [phone] Exam Date: 03/20/2020 0911 FAX #: [phone] Tamara son: fall. pain EXAMS: CPT CODE: [id number] CT C-SPINE W/O CONT 45181 <Continued> CC: Jose Miguel Vanessa MD Technologist:RT Sharri(R)(CT) CTDI: DLP: Trnscb Date/Time: 03/20/2020 (931) [email or web address] Orig Print D/T: S: 03/20/2020 (0936) PAGE 2 Signed Report - CT HEAD/BRAIN W/O [id number] 09:28:00 Name[facility] [facility] 1935 Age/S: 84 / M [address] [place] [address] Unit #: [id number] Loc: [place] [address] Phys: Christopher Cain MD Acct: [id number] Di s Date: Status: REG ER PHONE #: Exam Date: 03/20/2020 0910 FAX #: Reason: fall. pain EXAMS: CPT CODE: [id number] CT HEAD/BRAIN W/O CONT 93715 CT head without contrast 03/20/2020 HISTORY: Fall. Headache. PROCEDURE: Multi ple axial images from the skull base to the skull vertex were obtained wit hout contrast. Coronal and sagittal reconstructed images were performed CT imaging performed at this location utilizes radiation dose optimiz ation techniques which include one or more of the following: -Automated ex posure control -Adjustment of the mA and/or kV according to patient size -Use of iterative reconstruction technique CT Radiation Dose DLP 464. 91 mGy-cm Comparison is made to 01/08/2020 FINDINGS: N o acute intracranial hemorrhage, midline shift, extra-axial fluid collecti on, or hydrocephalus is present. No cortical hypodensity to suggest an ac [place] infarct is present. There is moderate atrophy. There are moderate wh ite matter hypodensities. The visualized mastoid air cells are clear. Th ere is no paranasal sinus air-fluid level. Distal internal carotid arteri al calcifications are present. IMPRESSION: 1. No acute intracranial abnormality. 2. Moderate atrophy and moderate chroni c microvascular ischemic changes. SL: [id number] at 0928 Reported and signed by: Peyman Galvin M.D. CC: Jose Miguel Vanessa MD Technologist:Jade Brewer, RT(R)(CT) CTDI: DLP: Trnscb Date/Time: 03/20/2020 (927) [email or web address] Orig Print D/T: S: 03/20/2020 (9539) PAGE 1 Signed Report UA RFLX MICR CULT IF [id number] 08:50:00* Test Item Value Reference Range Interpretation Comments UA COLOR (test code = COLU) AIRAM YEL/STRAW A UA APPEARANCE (test code = APPU) CLEAR CLEAR UA GLUCOSE DIPSTICK (test code = DGLUU) NEGATIVE NEGATIVE UA BILIRUBIN DIPSTICK (test code = BILU) NEGATIVE NEGATIVE UA KETONE DIPSTICK (test code = KETU) NEGATIVE NEGATIVE UA SPECIFIC GRAVITY (test code = SGU) 1.019 1.005-1.030 N UA BLOOD DIPSTICK (test code = ELEANOR) 3+ NEGATIVE A UA PH DIPSTICK (test code = CB) 6.0 5.0-7.0 N UA PROTEIN DIPSTICK (test code = PROU) 2+ NEGATIVE A UA UROBILINIOGEN DIPSTICK (test code = URO) 4.0 mg/dL 0.2-1.0 A UA NITRITE DIPSTICK (test code = KASANDRA) POSITIVE NEGATIVE A UA LEUKOCYTE ESTERASE DIPSTICK (test code = LEUU) 1+ NEGA TIVE A UA WBC (test code = WBCU) >50 WBC/HPF 0-3 A UA RBC (test code = RBCU) >50 RBC/HPF 0-3 A UA WBC NO REFLEX (test code = WBCUCL) >50 WBC/HPF 0-3 A UA BACTERIA (test code = BACU) TRACE /HPF NONE SEEN UA SQUAMOUS CELLS (test code = SQU) 0-5 /HPF NONE SEEN UA CALCIUM OXALATE CRYSTALS (test code = CAOXU) 1+ /HPF NONE S EEN A UA MUCUS (test code = MUCU) 4+ /LPF NONE SEEN A Indication for culture: Suprapubic PainSpecimen Description: INDWELLING CATH (BARRON)Cath Status: Change ContraindicatedCOMMENTS: prostate caBASIC METABOLIC [id number] 08:42:00* Test Item Value Reference Range Interpretation Comments SODIUM (test code = NA) 133 mEq/L 134-147 L POTASSIUM (test code = K) 4.4 mEq/L 3.4-5.0 N CHLORIDE (test code = CL) 103 mEq/L 100-108 N CARBON DIOXIDE (test code = CO2) 23 mEq/L 21-33 N ANION GAP (test code = GAP) 11 0-20 N GLUCOSE (test code = GLU) 109 mg/dL 70-110 N BLOOD UREA NITROGEN (test code = BUN) 20 mg/dL 7-18 H GLOMERULAR FILTRATION RATE (test code = GFR) 63.8 70-80 L Units of measure = ml/min/1.73 m2 CREATININE (test code = CREAT) 1.1 mg/dL 0.6-1.3 N CALCIUM (test code = CA) 10.2 mg/dL 8.0-10.5 N HEPATIC FUNCTION [id number] 08:42:00* Test Item Value Reference Range Interpretation Comments TOTAL PROTEIN (test code = PROT) 7.6 g/dL 6.4-8.2 N ALBUMIN (test code = ALB) 4.20 g/dL 3.4-5.0 N BILIRUBIN TOTAL (test code = BILT) 1.0 MG/DL <1.5 N BILIRUBIN DIRECT (test code = BILD) 0.20 MG/DL 0.0-0.30 BILIRUBIN INDIRECT (test code = BILIND) 0.80 MG/DL SGOT/AST (test code = AST) 19 IUnit/L 15-37 N SGPT/ALT (test code = ALT) 19 IUnit/L 15-65 N ALKALINE PHOSPHATASE TOTAL (test code = ALKP) 39 IUnit/L 20-125 N BASIC METABOLIC [id number] 08:33:00* Test Item Value Reference Range Interpretation Comments SODIUM (test code = NA) 133 mEq/L 134-147 L POTASSIUM (test code = K) 4.4 mEq/L 3.4-5.0 N CHLORIDE (test code = CL) 103 mEq/L 100-108 N CARBON DIOXIDE (test code = CO2) 23 mEq/L 21-33 N ANION GAP (test code = GAP) 11 0-20 N GLUCOSE (test code = GLU) 109 mg/dL 70-110 N BLOOD UREA NITROGEN (test code = BUN) 20 mg/dL 7-18 H GLOMERULAR FILTRATION RATE (test code = GFR) 70-80 CREATININE (test code = CREAT) mg/dL 0.6-1.3 CALCIUM (test code = CA) 10.2 mg/dL 8.0-10.5 N HEPATIC FUNCTION [id number] 08:33:00* Test Item Value Reference Range Interpretation Comments TOTAL PROTEIN (test code = PROT) g/dL 6.4-8.2 ALBUMIN (test code = ALB) g/dL 3.4-5.0 BILIRUBIN TOTAL (test code = BILT) MG/DL <1.5 BILIRUBIN DIRECT (test code = BILD) MG/DL 0.0-0.30 SGOT/AST (test code = AST) IUnit/L 15-37 SGPT/ALT (test code = ALT) IUnit/L 15-65 ALKALINE PHOSPHATASE TOTAL (test code = ALKP) IUnit/L 20-125 CBC W/AUTO [id number] 08:19:00* Test Item Value Reference Range Interpretation Comments WHITE BLOOD CELL (test code = WBC) 8.22 x10 3/uL 4.5-11.0 RED BLOOD CELL (test code = RBC) 3.52 x10 6/uL 4.00-5.60 L HEMOGLOBIN (test code = HGB) 11.6 g/dL 12.5-16.9 L HEMATOCRIT (test code = HCT) 36.1 % 37.5-50.7 L MEAN CELL VOLUME (test code = MCV) 102.6 fL 81.0-99.0 H MEAN CELL HGB (test code = MCH) 33.0 pg 27.0-33.0 N MEAN CELL HGB CONCETRATION (test code = MCHC) 32.1 g/dL 33.0-37. 0 L RED CELL DISTRIBUTION WIDTH CV (test code = RDW) 14.7 % 11.5- 14.5 H RED CELL DISTRIBUTION WIDTH SD (test code = RDW-SD) 55.5 fL 37 .0-54.0 H PLATELET COUNT (test code = PLT) 248 x10 3/uL 150-400 N MEAN PLATELET VOLUME (test code = MPV) 9.6 fL 7.0-9.0 H NEUTROPHIL % (test code = NT%) 63.7 % 56.0-77.0 N IMMATURE GRANULOCYTE % (test code = IG%) 1.2 % 0.0-2.0 N LYMPHOCYTE % (test code = LY%) 25.2 % 14.0-32.0 N MONOCYTE % (test code = MO%) 8.2 % 4.8-9.0 N EOSINOPHIL % (test code = EO%) 1.1 % 0.3-3.7 N BASOPHIL % (test code = BA%) 0.6 % 0.0-2.0 N NUCLEATED RBC % (test code = NRBC%) 0.0 % 0-0 N NEUTROPHIL # (test code = NT#) 5.24 x10 3/uL 2.0-7.6 N IMMATURE GRANULOCYTE # (test code = IG#) 0.10 x10 3/uL 0.00-0.03 H LYMPHOCYTE # (test code = LY#) 2.07 x10 3/uL 1.0-3.8 N MONOCYTE # (test code = MO#) 0.67 x10 3/uL 0.1-0.8 N EOSINOPHIL # (test code = EO#) 0.09 x10 3/uL 0.0-0.2 N BASOPHIL # (test code = BA#) 0.05 x10 3/uL 0.0-0.2 N NUCLEATED RBC # (test code = NRBC#) 0.00 x10 3/uL 0.0-0.1 N MANUAL DIFF REQUIRED (test code = MDIFF) NO URINALYSIS [id number] 23:07:00* Test Item Value Reference Range Interpretation Comments UA COLOR (test code = COLU) AIRAM YEL/STRAW A UA APPEARANCE (test code = APPU) CLEAR CLEAR UA GLUCOSE DIPSTICK (test code = DGLUU) 1+ NEGATIVE A UA BILIRUBIN DIPSTICK (test code = BILU) NEGATIVE NEGATIVE UA KETONE DIPSTICK (test code = KETU) NEGATIVE NEGATIVE UA SPECIFIC GRAVITY (test code = SGU) 1.023 1.005-1.030 N UA BLOOD DIPSTICK (test code = ELEANOR) NEGATIVE NEGATIVE UA PH DIPSTICK (test code = CB) 5.0 5.0-7.0 N UA PROTEIN DIPSTICK (test code = PROU) 2+ NEGATIVE A UA UROBILINIOGEN DIPSTICK (test code = URO) 4.0 mg/dL 0.2-1.0 A UA NITRITE DIPSTICK (test code = KASANDRA) POSITIVE NEGATIVE A UA LEUKOCYTE ESTERASE DIPSTICK (test code = LEUU) TRACE NEGA TIVE A [id number] 12:22:00* Test Item Value Reference Range Interpretation Comments GLUBED (test code = GLUBED) 138 MG/DL 70-110 H Performed by certified defensive fire control systems operator at [facility] [id number] 09:20:00* Test Item Value Reference Range Interpretation Comments GLUBED (test code = GLUBED) 102 MG/DL 70-110 N Performed by certified defensive fire control systems operator at [facility] [id number] 09:20:00* Test Item Value Reference Range Interpretation Comments GLUBED (test code = GLUBED) 113 MG/DL 70-110 H Performed by certified defensive fire control systems operator at [facility] [id number] 08:19:00* Test Item Value Reference Range Interpretation Comments GLUBED (test code = GLUBED) 102 MG/DL 70-110 N Performed by certified defensive fire control systems operator at [facility] CBC W/AUTO [id number] 07:36:00* Test Item Value Reference Range Interpretation Comments WHITE BLOOD CELL (test code = WBC) 5.50 x10 3/uL 4.5-11.0 N RED BLOOD CELL (test code = RBC) 4.39 x10 6/uL 4.00-5.60 N HEMOGLOBIN (test code = HGB) 12.9 g/dL 12.5-16.9 N HEMATOCRIT (test code = HCT) 40.1 % 37.5-50.7 N MEAN CELL VOLUME (test code = MCV) 91.3 fL 81.0-99.0 N MEAN CELL HGB (test code = MCH) 29.4 pg 27.0-33.0 N MEAN CELL HGB CONCETRATION (test code = MCHC) 32.2 g/dL 33.0-37. 0 L RED CELL DISTRIBUTION WIDTH CV (test code = RDW) 12.4 % 11.5- 14.5 N RED CELL DISTRIBUTION WIDTH SD (test code = RDW-SD) 41.3 fL 37 .0-54.0 N PLATELET COUNT (test code = PLT) 221 x10 3/uL 150-400 N MEAN PLATELET VOLUME (test code = MPV) 9.9 fL 7.0-9.0 H NEUTROPHIL % (test code = NT%) 64.7 % 56.0-77.0 N IMMATURE GRANULOCYTE % (test code = IG%) 0.4 % 0.0-2.0 N LYMPHOCYTE % (test code = LY%) 21.6 % 14.0-32.0 N MONOCYTE % (test code = MO%) 6.7 % 4.8-9.0 N EOSINOPHIL % (test code = EO%) 5.5 % 0.3-3.7 H BASOPHIL % (test code = BA%) 1.1 % 0.0-2.0 N NUCLEATED RBC % (test code = NRBC%) 0.0 % 0-0 N NEUTROPHIL # (test code = NT#) 3.56 x10 3/uL 2.0-7.6 N IMMATURE GRANULOCYTE # (test code = IG#) 0.02 x10 3/uL 0.00-0.03 N LYMPHOCYTE # (test code = LY#) 1.19 x10 3/uL 1.0-3.8 N MONOCYTE # (test code = MO#) 0.37 x10 3/uL 0.1-0.8 N EOSINOPHIL # (test code = EO#) 0.30 x10 3/uL 0.0-0.2 H BASOPHIL # (test code = BA#) 0.06 x10 3/uL 0.0-0.2 N NUCLEATED RBC # (test code = NRBC#) 0.00 x10 3/uL 0.0-0.1 N MANUAL DIFF REQUIRED (test code = MDIFF) NO BASIC METABOLIC [id number] 07:25:00* Test Item Value Reference Range Interpretation Comments SODIUM (test code = NA) 138 mEq/L 134-147 N POTASSIUM (test code = K) 4.4 mEq/L 3.4-5.0 N CHLORIDE (test code = CL) 108 mEq/L 100-108 N CARBON DIOXIDE (test code = CO2) 24 mEq/L 21-33 N ANION GAP (test code = GAP) 10 0-20 N GLUCOSE (test code = GLU) 100 mg/dL 70-110 N BLOOD UREA NITROGEN (test code = BUN) 12 mg/dL 7-18 GLOMERULAR FILTRATION RATE (test code = GFR) 92.1 70-80 H Units of measure = ml/min/1.73 m2 CREATININE (test code = CREAT) 0.8 mg/dL 0.6-1.3 N CALCIUM (test code = CA) 10.0 mg/dL 8.0-10.5 N [id number] 19:54:00* Test Item Value Reference Range Interpretation Comments GLUBED (test code = GLUBED) 127 MG/DL 70-110 H Performed by certified defensive fire control systems operator at [facility] [id number] 13:12:00* Test Item Value Reference Range Interpretation Comments GLUBED (test code = GLUBED) 138 MG/DL 70-110 H Performed by certified defensive fire control systems operator at [facility] [id number] 11:03:00* Test Item Value Reference Range Interpretation Comments HGBA1C% (test code = HGBA1C%) 5.8 %A1C 4.8-6.0 N TSH REFLEX TO [id number] 10:52:00* Test Item Value Reference Range Interpretation Comments TSH REFLEX TO FT4 (test code = TSHREFLEX) 1.73 IU/mL 0.42-5.47 N COMPREHENSIVE METABOLIC [id number] 22:31:00* Test Item Value Reference Range Interpretation Comments SODIUM (test code = NA) 135 mEq/L 134-147 N POTASSIUM (test code = K) 4.4 mEq/L 3.4-5.0 N CHLORIDE (test code = CL) 104 mEq/L 100-108 N CARBON DIOXIDE (test code = CO2) 22 mEq/L 21-33 N ANION GAP (test code = GAP) 13 0-20 N GLUCOSE (test code = GLU) 113 mg/dL 70-110 H BLOOD UREA NITROGEN (test code = BUN) 21 mg/dL 7-18 H GLOMERULAR FILTRATION RATE (test code = GFR) 80.4 70-80 H Units of measure = ml/min/1.73 m2 CREATININE (test code = CREAT) 0.9 mg/dL 0.6-1.3 N TOTAL PROTEIN (test code = PROT) 7.0 g/dL 6.4-8.2 N ALBUMIN (test code = ALB) 3.80 g/dL 3.4-5.0 N CALCIUM (test code = CA) 10.2 mg/dL 8.0-10.5 N BILIRUBIN TOTAL (test code = BILT) 0.4 MG/DL <1.5 N SGOT/AST (test code = AST) 15 IUnit/L 15-37 N SGPT/ALT (test code = ALT) 13 IUnit/L 15-65 L ALKALINE PHOSPHATASE TOTAL (test code = ALKP) 73 IUnit/L 20-125 N COMPREHENSIVE METABOLIC [id number] 22:26:00* Test Item Value Reference Range Interpretation Comments SODIUM (test code = NA) 135 mEq/L 134-147 N POTASSIUM (test code = K) 4.4 mEq/L 3.4-5.0 N CHLORIDE (test code = CL) 104 mEq/L 100-108 N CARBON DIOXIDE (test code = CO2) 22 mEq/L 21-33 N ANION GAP (test code = GAP) 13 0-20 N GLUCOSE (test code = GLU) 113 mg/dL 70-110 H BLOOD UREA NITROGEN (test code = BUN) 21 mg/dL 7-18 H GLOMERULAR FILTRATION RATE (test code = GFR) 70-80 CREATININE (test code = CREAT) mg/dL 0.6-1.3 TOTAL PROTEIN (test code = PROT) g/dL 6.4-8.2 ALBUMIN (test code = ALB) g/dL 3.4-5.0 CALCIUM (test code = CA) 10.2 mg/dL 8.0-10.5 N BILIRUBIN TOTAL (test code = BILT) MG/DL <1.5 SGOT/AST (test code = AST) IUnit/L 15-37 SGPT/ALT (test code = ALT) IUnit/L 15-65 ALKALINE PHOSPHATASE TOTAL (test code = ALKP) IUnit/L 20-125 - CT ABD PELVIS W/O [id number] 22:21:00 Name: CARMEN CH [facility] : 1935 Age/S: 84 / M [address] [place] [address] Unit #: [id number] [place] [address] Phys: Freddy Ahuja MD Acct: [id number] Dis Date: Status: PRE ER PHONE #: [phone] Exam Date: 01/27/20202152 FAX #: [phone] Reason: Right flank pain / Penile pain (indwelling fole EXAMS: CPT CODE: [id number] CT ABD PELVIS W/O CONT 33339 CT abdomen and pelvis without contrast dated 01/27/2020 INDICATION: Flank pain. COMPARISON: CT abdomen dated 01/06/2020 TECHNIQUE: A renal stone protocol CT of the abdomen pelvis was performed using helical images from the upper abdomen through the pubic symphysis with subsequent sagittal and coronal reconstruction. IV CONTRAST: None. GI CONTRAST: None. CT imaging performed at this location utilizes radiation dose optimization techniques which include one or more of the followin) Automated exposure control; 2) Adjustment of mA and/or kV; 3) Use of iter ative reconstructive technique. CT radiation dose DLP (mGy-cm): 558. FINDINGS: URINARY: A 3 mm calcified stone is identified in the left ureter at the L4 level and is essentially unchanged in positi on when compared to the CT of 01/06/2020. The calculus is not associated wi th left hydronephrosis/hydroureter on the current exam. The kidneys appea r normal in size and contour. No acute edema or inflammation is pako ntified in the perinephric fat. There is no evidence of right renal colle cting system obstruction or calcified right renal collecting system stone SOLID ORGANS: No acute CT abnormalities of the liver, spleen, panc reas or adrenal glands are identified. A couple of hepatic cysts are agai n noted. BILIARY: The gallbladder is normally distended and contains multiple peripherally calcified gallstones. No significant bilia ry ductal dilatation is present. BOWEL: Bowel assessment is limited by the absence of bowel contrast. No gross abnormalities of the s tomach or duodenum are noted. No small bowel dilatation is present to sug gest acute obstruction. The appendix is identified and is not acutely inf lamed. There is no evidence of diverticular disease or inflammatory colon ic wall thickening. PAGE 1 Signed Repor t (CONTINUED) Name: CARMEN CH [facility] : 1935 Age/S: 84 / M [address] [place] [address] Unit #: [id number] Loc: [place] [address] Phys: Freddy Ahuja MD Acct: [id number] Dis Date: Status: PRE ER PHONE #: [phone] Exam Date: 01/27/20202152 FAX #: [phone] Reason: Right flank pain / Penile pain (indwelling fole EXAMS: CPT C ODE: [id number] CT ABD PELVIS W/O CONT 45609 <Continued> PERITONEUM: There is no evidence of free intraperitoneal air or significant free intraperitoneal fluid. RETROPERITONEUM: The abdominal aorta is normal in caliber. A filter is identified in the inferior vena cava. There is no evidence of retroperitoneal mass or adenopathy. PELVIS: Bladder assessment is limited due to the presence of an unclamped Barron catheter. No enlarged pelvic lymph nodes are noted. LOWER CHEST: The lung bases appear clear of acute disease. Evidence of chronic interstitial scarring is identified in these peripheral subpleural regions of both lungs. ADDITIONAL FINDINGS: None. IMPRESSION: 1. A 3 mm calcified stone is identified in the left ureter at the L4 level without acute left renal collecting system obstruction. The calculus is essentially unchanged in position when compared to the prior CT of 01/06/2020. 2. Cholelithiasis. SL: 131 at 2221 Reported and signed by: Raf Henry M.D. CC: Freddy Ahuja MD; Jose Miguel Vanessa MD Technologist:Adam Espinoza, RT(R)(CT) CTDI: DLP: Trnscb Date/Time: 01/27/2020 (2220) Bri Orig Print D/T: S: 01/27/2020 (2223) PAGE 2 Signed Report URINALYSIS [id number] 22:11:00* Test Item Value Reference Range Interpretation Comments UA COLOR (test code = COLU) YELLOW YEL/STRAW UA APPEARANCE (test code = APPU) CLOUDY CLEAR A UA GLUCOSE DIPSTICK (test code = DGLUU) NEGATIVE NEGATIVE UA BILIRUBIN DIPSTICK (test code = BILU) NEGATIVE NEGATIVE UA KETONE DIPSTICK (test code = KETU) 1+ NEGATIVE A UA SPECIFIC GRAVITY (test code = SGU) 1.030 1.005-1.030 N UA BLOOD DIPSTICK (test code = ELEANOR) 5+ NEGATIVE UA PH DIPSTICK (test code = CB) 5.0 5.0-7.0 N UA PROTEIN DIPSTICK (test code = PROU) 3+ NEGATIVE A UA UROBILINIOGEN DIPSTICK (test code = URO) 0.2 mg/dL 0.2-1.0 UA NITRITE DIPSTICK (test code = KASANDRA) NEGATIVE NEGATIVE UA LEUKOCYTE ESTERASE DIPSTICK (test code = LEUU) 3+ NEGA TIVE A UA RBC (test code = RBCU) >50 RBC/HPF 0-3 A UA WBC NO REFLEX (test code = WBCUCL) >50 WBC/HPF 0-3 A UA BACTERIA (test code = BACU) 1+ /HPF NONE SEEN A UA SQUAMOUS CELLS (test code = SQU) NONE SEEN /HPF NONE SEEN UA MUCUS (test code = MUCU) 4+ /LPF NONE SEEN A URINALYSIS [id number] 22:09:00* Test Item Value Reference Range Interpretation Comments UA COLOR (test code = COLU) YELLOW YEL/STRAW UA APPEARANCE (test code = APPU) CLOUDY CLEAR A UA GLUCOSE DIPSTICK (test code = DGLUU) NEGATIVE NEGATIVE UA BILIRUBIN DIPSTICK (test code = BILU) NEGATIVE NEGATIVE UA KETONE DIPSTICK (test code = KETU) 1+ NEGATIVE A UA SPECIFIC GRAVITY (test code = SGU) 1.030 1.005-1.030 N UA BLOOD DIPSTICK (test code = ELEANOR) 5+ NEGATIVE UA PH DIPSTICK (test code = CB) 5.0 5.0-7.0 N UA PROTEIN DIPSTICK (test code = PROU) 3+ NEGATIVE A UA UROBILINIOGEN DIPSTICK (test code = URO) 0.2 mg/dL 0.2-1.0 UA NITRITE DIPSTICK (test code = KASANDRA) NEGATIVE NEGATIVE UA LEUKOCYTE ESTERASE DIPSTICK (test code = LEUU) 3+ NEGA TIVE A UA RBC (test code = RBCU) RBC/HPF 0-3 CBC W/AUTO [id number] 21:49:00* Test Item Value Reference Range Interpretation Comments WHITE BLOOD CELL (test code = WBC) 6.10 x10 3/uL 4.5-11.0 N RED BLOOD CELL (test code = RBC) 4.45 x10 6/uL 4.00-5.60 N HEMOGLOBIN (test code = HGB) 13.1 g/dL 12.5-16.9 N HEMATOCRIT (test code = HCT) 40.7 % 37.5-50.7 N MEAN CELL VOLUME (test code = MCV) 91.5 fL 81.0-99.0 N MEAN CELL HGB (test code = MCH) 29.4 pg 27.0-33.0 N MEAN CELL HGB CONCETRATION (test code = MCHC) 32.2 g/dL 33.0-37. 0 L RED CELL DISTRIBUTION WIDTH CV (test code = RDW) 12.3 % 11.5- 14.5 N RED CELL DISTRIBUTION WIDTH SD (test code = RDW-SD) 41.1 fL 37 .0-54.0 N PLATELET COUNT (test code = PLT) 266 x10 3/uL 150-400 N MEAN PLATELET VOLUME (test code = MPV) 9.8 fL 7.0-9.0 H NEUTROPHIL % (test code = NT%) 45.2 % 56.0-77.0 L IMMATURE GRANULOCYTE % (test code = IG%) 0.2 % 0.0-2.0 N LYMPHOCYTE % (test code = LY%) 40.8 % 14.0-32.0 H MONOCYTE % (test code = MO%) 7.5 % 4.8-9.0 N EOSINOPHIL % (test code = EO%) 5.2 % 0.3-3.7 H BASOPHIL % (test code = BA%) 1.1 % 0.0-2.0 N NUCLEATED RBC % (test code = NRBC%) 0.0 % 0-0 N NEUTROPHIL # (test code = NT#) 2.75 x10 3/uL 2.0-7.6 N IMMATURE GRANULOCYTE # (test code = IG#) 0.01 x10 3/uL 0.00-0.03 N LYMPHOCYTE # (test code = LY#) 2.49 x10 3/uL 1.0-3.8 N MONOCYTE # (test code = MO#) 0.46 x10 3/uL 0.1-0.8 N EOSINOPHIL # (test code = EO#) 0.32 x10 3/uL 0.0-0.2 H BASOPHIL # (test code = BA#) 0.07 x10 3/uL 0.0-0.2 N NUCLEATED RBC # (test code = NRBC#) 0.00 x10 3/uL 0.0-0.1 N MANUAL DIFF REQUIRED (test code = MDIFF) NO - XR FLUOROSCOPY 0-60 [id number] 10:59:00 FAX: Jose Miguel Thompson MD [phone] [place]: St: [facility] FAX: Carlos Eduardo Kraus Jr [phone] Name: CARMEN CH [facility] : 1935 Age/S: 84/M [address] [place] [address] Unit #: [id number] Loc: [place] [address] Phys: Carlos Eduardo Law Jr, MD Acct: [id number] Dis Date: Status: REG [facility] [place] PHONE #: [phone] Exam Date: 01/22/2020 1036 FAX #: [phone] Reason: LEFT URETERAL CALCULUS; RETAINED LEFT J-STENT EXAMS: CPT CODE: [id number] XR FLUOROSCOPY 0-60 MIN 63904 Intraprocedural fluoroscopy was provided by the Department of Radiology. Any images obtained were interpreted by the surgeon intraop eratively. Reference air kerma: 0.6 mGy, fluoroscopy time 1 secon d SL: EG-H at 1059 Reported and yaima d by: Ehsan Cabrera M.D. CC: Jose Miguel Vanessa MD; Kirill Law Jr, MD Technologist: RT Shanda(R) Trnscrd Date/Time/By: 01/22/2020 (7820) : By: ChrisETG Orig Print D/T: S: 01/22/2020 (5459) PAGE 1 Signed Report [id number] 10:58:00* Test Item Value Reference Range Interpretation Comments GLUBED (test code = GLUBED) 117 MG/DL 70-110 H Performed by certified defensive fire control systems operator at [facility] [id number] 09:17:00* Test Item Value Reference Range Interpretation Comments GLUBED (test code = GLUBED) 85 MG/DL 70-110 N Performed by certified defensive fire control systems operator at [facility] - XR ABDOMEN 1V (KUB)2020-01-22 08:59:00 FAX: Jose Miguel Thompson MD [phone] [place]: St: REG FAX: Carlos Eduardo Kraus Jr [phone] Name: CARMEN CH [facility] : 1935 Age/S: 84/M [address] [place] [address] Unit #: [id number] Loc: [place] [address] Phys: Carlos Eduardo Law Jr, MD Acct: [id number] Dis Date: Status: REG [facility] [place] PHONE #: [phone] Exam Date: 01/22/2020 0849 FAX #: [phone] Reason: LEFT URETERAL CALCULUS, RETAINED LEFT J- STENT EXAMS: CPT CODE: [id number] XR ABDOMEN 1V (KUB) 19128 1 view abdomen: HISTORY: Left ureteral calculus. FINDINGS: A double pigtail nephroureteral stent is seen in place on the left. Positioning appears satisfactory. No definite urinary tract stone identified. Surgical clips are again seen in the pelvis. The patient has an IVC filter. Normal abdominal bowel gas pattern and bony st ructures IMPRESSION: No acute finding. No evidence of urinary t ract stone. SL: EG-H Electron ically Signed by Maria Del Carmen Cabrera on 01/22/2020 at 0859 Reported and signed by: Ehsan Cabrera M.D. CC: Jose Miguel hodges MD; Carlos Eduardo Law Jr, MD Technologist: RT Jesse(Kiah) Trnscrd Date/Time/By: 01/22/2020 (0859) : By: ChrisETG Orig Print D/T: S: 01/22/2020 (0902) PAGE 1 Signed Report PTH INTACT [id number] 08:18:00* Test Item Value Reference Range Interpretation Comments PARATHYROID HORMONE INTACT (test code = PARAI) 82.3 pg/mL 14.0-72 .0 H PROTHROMBIN [id number] 08:09:00* Test Item Value Reference Range Interpretation Comments PROTHROMBIN TIME PATIENT (test code = PTP) 11.5 SECONDS 9.3-12.9 N INTERNATIONAL NORMAL RATIO (test code = INR) 1.1 0.8-1.2 N TARGET INR BY INDICATION Indication INR1. Prophylaxis of venous thrombosis 2.0 - 3.0 (orthopedic surgery), Prophylaxis of venous thrombosis (other than high-risk surgery), Treatment of Deep Vein Thrombosis/Pulmonary Embolism, Prevention of systemic embolism - Tissue heart valves, Acute Myocardial Infarction (to prevent systemic embolism), Valvular heart disease, Atrial Fibrillation, Bileaflet mechanical valve in aortic position.2. Mechanical prosthetic valves (high risk), 2.5 - 3.5 Presence of Lupus Anticoagulant or Antiphospholipid Antibodies, Prevention of systemic embolism - Acute Myocardial Infarction (to prevent recurrent infarct). THROMBOPLASTIN TIME [id number] 08:09:00* Test Item Value Reference Range Interpretation Comments THROMBOPLASTIN TIME PARTIAL (test code = PTT) 38.9 Seconds 25.0-39. 5 N Therapeutic Range: 50.4 - 88.3 Seconds Effective 02/17/2019 URIC [id number] 08:08:00* Test Item Value Reference Range Interpretation Comments URIC ACID (test code = URIC) 4.1 mg/dL 2.6-7.2 N URINALYSIS [id number] 08:03:00* Test Item Value Reference Range Interpretation Comments UA COLOR (test code = COLU) YELLOW YEL/STRAW UA APPEARANCE (test code = APPU) CLOUDY CLEAR A UA GLUCOSE DIPSTICK (test code = DGLUU) NEGATIVE NEGATIVE UA BILIRUBIN DIPSTICK (test code = BILU) NEGATIVE NEGATIVE UA KETONE DIPSTICK (test code = KETU) NEGATIVE NEGATIVE UA SPECIFIC GRAVITY (test code = SGU) 1.025 1.005-1.030 N UA BLOOD DIPSTICK (test code = ELEANOR) 5+ NEGATIVE UA PH DIPSTICK (test code = CB) 6.0 5.0-7.0 N UA PROTEIN DIPSTICK (test code = PROU) 3+ NEGATIVE A UA UROBILINIOGEN DIPSTICK (test code = URO) 0.2 mg/dL 0.2-1.0 UA NITRITE DIPSTICK (test code = KASANDRA) NEGATIVE NEGATIVE UA LEUKOCYTE ESTERASE DIPSTICK (test code = LEUU) 3+ NEGA TIVE A UA RBC (test code = RBCU) >50 RBC/HPF 0-3 A UA WBC NO REFLEX (test code = WBCUCL) 10-20 WBC/HPF 0-3 A UA BACTERIA (test code = BACU) TRACE /HPF NONE SEEN UA SQUAMOUS CELLS (test code = SQU) NONE SEEN /HPF NONE SEEN UA MUCUS (test code = MUCU) 4+ /LPF NONE SEEN A URINALYSIS [id number] 07:58:00* Test Item Value Reference Range Interpretation Comments UA COLOR (test code = COLU) YELLOW YEL/STRAW UA APPEARANCE (test code = APPU) CLOUDY CLEAR A UA GLUCOSE DIPSTICK (test code = DGLUU) NEGATIVE NEGATIVE UA BILIRUBIN DIPSTICK (test code = BILU) NEGATIVE NEGATIVE UA KETONE DIPSTICK (test code = KETU) NEGATIVE NEGATIVE UA SPECIFIC GRAVITY (test code = SGU) 1.025 1.005-1.030 N UA BLOOD DIPSTICK (test code = ELEANOR) 5+ NEGATIVE UA PH DIPSTICK (test code = CB) 6.0 5.0-7.0 N UA PROTEIN DIPSTICK (test code = PROU) 3+ NEGATIVE A UA UROBILINIOGEN DIPSTICK (test code = URO) 0.2 mg/dL 0.2-1.0 UA NITRITE DIPSTICK (test code = KASANDRA) NEGATIVE NEGATIVE UA LEUKOCYTE ESTERASE DIPSTICK (test code = LEUU) 3+ NEGA TIVE A UA RBC (test code = RBCU) RBC/HPF 0-3 ankle brachial [id number] 00:00:00* Test Item Value Reference Range Interpretation Comments Result: (test code = Result:) [facility] [id number] 00:00:00* Test Item Value Reference Range Interpretation Comments Result: (test code = Result:) [facility] [id number] 00:00:00* Test Item Value Reference Range Interpretation Comments Result: (test code = Result:) Severe [facility] HEAD/BRAIN W/O [id number] 13:01:00 Name: CARMEN CH [facility] [place] : 1935 Age/S: 84 / M [address] [place] [address] Unit #: [id number] Loc: [place] [address] Phys: Yolis Damon Acct: [id number] Sweetie s Date: Status: ADM IN PHONE #: [phone] Exam Date: 01/08/2020 1221 FAX #: Reason: SLURRED SPEECH EXAMS: CPT CODE: [id number] CT HEAD/BRAIN W/O CONT 72460 STUDY: - CT HEAD/BRAIN W /O CONT 01/08/2020 11:18 AM Ordering Physician: Rochelle Damon Patient Name: CARMEN CH MR: [id number] : 1935; Age: 84 ye ars y/o Male Clinical Indication: SLURRED SPEECH Co mparison: October 15, 2011 TECHNIQUE: Multiple contiguous transax ial noncontrast CT images were obtained through the head. Coronal and sagi ttal reformatted images were prepared. DOSE: CT imaging per formed at this location utilizes radiation dose optimization technique [facility] includes one or more of the followin) Automated exposure control; 2 ) Adjustment of the mA and/or kV according to patient's size; 3) Use of it erative reconstruction techniques. DLP (mGy-cm): 1017 FINDINGS: Moderate diffuse atrophy is present associated with m inimal nonspecific periventricular low attenuation most consistent with ol d microangiopathic ischemic change. No evidence of acute intracrania l hemorrhage, mass lesion, mass effect, midline shift, or extra-axial flui d collection. The lateral ventricles, third ventricle, fourth ventricle, a nd basilar cisterns are appropriate for degree of atrophy present. The visualized portions of the paranasal sinuses are clear. Mastoids are clear. IMPRESSION: No acute intracranial abnormality. If there is further concern for intracranial pathology or acute stroke, further assessment w ith an MRI of the brain should be considered. PAGE 1 Signed Report (CONTINUED) Name: Leeroy CH [facility] : 1935 Age/ S: 84 / M [address] [place] [address] Unit #: [id number] Loc: [place] [address] Phys: Rochelle Damon Acct: [id number] Dis Date: Status: ADM IN PHONE #: [phone] Exam Date: 01/08/2020 1220 FAX #: [phone] Reason: SLURRED SPEECH EXAMS: CPT CODE: [id number] CT HEAD/BRAIN W/O CONT 49022 <Continued> SL: [id number] at 1301 Reported and signed by: Bertrand Ortega D.O. CC: Rochelle Damon; Stone Gilman MD; Jose Miguel Vanessa MD Technologist:JEAN-PAUL Good CTDI: DLP: Trnscb Date/Time: 01/08/2020 (1301) Tip.MP37 Orig Print D/T: S: 01/08/2020 (9753) PAGE 2 Signed Report GLUBED 2020-01-08 08:41:00* Test Item Value Reference Range Interpretation Comments GLUBED (test code = GLUBED) 97 MG/DL 70-110 N Performed by certified defensive fire control systems operator at [facility] [id number] 08:06:00* Test Item Value Reference Range Interpretation Comments GLUBED (test code = GLUBED) 96 MG/DL 70-110 N Performed by certified defensive fire control systems operator at [facility] BASIC METABOLIC [id number] 07:38:00* Test Item Value Reference Range Interpretation Comments SODIUM (test code = NA) 139 mEq/L 134-147 N POTASSIUM (test code = K) 4.5 mEq/L 3.4-5.0 CHLORIDE (test code = CL) 109 mEq/L 100-108 H CARBON DIOXIDE (test code = CO2) 24 mEq/L 21-33 N ANION GAP (test code = GAP) 11 0-20 N GLUCOSE (test code = GLU) 105 mg/dL 70-110 N BLOOD UREA NITROGEN (test code = BUN) 13 mg/dL 7-18 N GLOMERULAR FILTRATION RATE (test code = GFR) 92.1 70-80 H Units of measure = ml/min/1.73 m2 CREATININE (test code = CREAT) 0.8 mg/dL 0.6-1.3 N CALCIUM (test code = CA) 9.9 mg/dL 8.0-10.5 N CBC W/AUTO [id number] 07:34:00* Test Item Value Reference Range Interpretation Comments WHITE BLOOD CELL (test code = WBC) 8.18 x10 3/uL 4.5-11.0 N RED BLOOD CELL (test code = RBC) 4.19 x10 6/uL 4.00-5.60 N HEMOGLOBIN (test code = HGB) 12.6 g/dL 12.5-16.9 N HEMATOCRIT (test code = HCT) 39.3 % 37.5-50.7 N MEAN CELL VOLUME (test code = MCV) 93.8 fL 81.0-99.0 N MEAN CELL HGB (test code = MCH) 30.1 pg 27.0-33.0 N MEAN CELL HGB CONCETRATION (test code = MCHC) 32.1 g/dL 33.0-37. 0 L RED CELL DISTRIBUTION WIDTH CV (test code = RDW) 12.5 % 11.5- 14.5 N RED CELL DISTRIBUTION WIDTH SD (test code = RDW-SD) 43.3 fL 37 .0-54.0 N PLATELET COUNT (test code = PLT) 191 x10 3/uL 150-400 N MEAN PLATELET VOLUME (test code = MPV) 10.0 fL 7.0-9.0 H NEUTROPHIL % (test code = NT%) 76.6 % 56.0-77.0 N IMMATURE GRANULOCYTE % (test code = IG%) 0.4 % 0.0-2.0 N LYMPHOCYTE % (test code = LY%) 13.2 % 14.0-32.0 L MONOCYTE % (test code = MO%) 8.4 % 4.8-9.0 N EOSINOPHIL % (test code = EO%) 1.0 % 0.3-3.7 N BASOPHIL % (test code = BA%) 0.4 % 0.0-2.0 N NUCLEATED RBC % (test code = NRBC%) 0.0 % 0-0 N NEUTROPHIL # (test code = NT#) 6.27 x10 3/uL 2.0-7.6 N IMMATURE GRANULOCYTE # (test code = IG#) 0.03 x10 3/uL 0.00-0.03 N LYMPHOCYTE # (test code = LY#) 1.08 x10 3/uL 1.0-3.8 N MONOCYTE # (test code = MO#) 0.69 x10 3/uL 0.1-0.8 N EOSINOPHIL # (test code = EO#) 0.08 x10 3/uL 0.0-0.2 N BASOPHIL # (test code = BA#) 0.03 x10 3/uL 0.0-0.2 N NUCLEATED RBC # (test code = NRBC#) 0.00 x10 3/uL 0.0-0.1 N MANUAL DIFF REQUIRED (test code = MDIFF) NO [id number] 21:32:00* Test Item Value Reference Range Interpretation Comments GLUBED (test code = GLUBED) 146 MG/DL 70-110 H Performed by certified defensive fire control systems operator at [facility] [id number] 18:33:00* Test Item Value Reference Range Interpretation Comments GLUBED (test code = GLUBED) 121 MG/DL 70-110 H Performed by certified defensive fire control systems operator at [facility] [id number] 12:29:00* Test Item Value Reference Range Interpretation Comments GLUBED (test code = GLUBED) 100 MG/DL 70-110 N Performed by certified defensive fire control systems operator at [facility] [id number] 10:46:00* Test Item Value Reference Range Interpretation Comments GLUBED (test code = GLUBED) 77 MG/DL 70-110 N Performed by certified defensive fire control systems operator at [facility] - XR FLUOROSCOPY 0-60 [id number] 10:34:00 FAX: Stone Schmitz [phone] [place]: St: [facility] FAX: Jose Miguel Thompson MD [phone] Name: CARMEN CH [facility] : 1935 Age/S: 84/M [address] [place] [address] Unit #: [id number] Loc: G.M112 [place] [address] Phys: Stone Gilman MD Acct: [id number] Dis Date: Status: ADM IN PHONE #: [phone] Exam Date: 01/07/2020 0959 FAX #: [phone] Reason: STENT PLACEMENT EXAMS: CPT CODE: [id number] XR FLUOROSCOPY 0-60 MIN 80231 Intraprocedural fluoroscopy was provided by the Department of Radiology. Any images obtained were interpreted by the surgeon intraop eratively. Reference air kerma: 4.53 mGy, fluoroscopy time 46 se conds SL: [id number] at 1034 Report ed and signed by: Ehsan Cabrera M.D. CC: Stone Gilman MD; Jose Miguel Vanessa MD Technologist: Mercedes Soto, RT(R), RTT Trnscrd Date/Time/By: 01/07/2020 (1034) : By: ChrisETG Orig Print D/T: S: 01/07/2020 (1037) PAGE 1 Signed Report - XR CHEST 2 [id number] 09:30:00 FAX: Stone Schmitz [phone] [place]: St: ADM FAX: Saleem Philippe MD [phone] FAX: Jose Miguel Thompson MD [phone] Name: CARMEN CH [facility] : 1935 Age/S: 84/M [address] [place] [address] Blvd Unit #: [id number] Loc: G.M112 [place] [address] Phys: Saleem Clifton MD Acct: [id number] Dis Date: Status: ADM IN PH ONE #: [phone] Exam Date: 01/07/2020805 FAX #: [phone] Reason: Urological Surgery Pre Op EXAMS: CPT CODE: [id number] XR CHEST 2 V 36851 CLINICAL HISTO RY: Urological Surgery Pre Op COMPARISON: March 20, 2017 PA and lateral films of the chest demonstrate sternotomy sutures in yasmeen ce. Densities thought to represent artifact are present in left anterior c hest wall. Heart size is normal. Lung kirby demonstrate no eviden ce of pneumonia or congestive failure. There is no evidence of pleural eff usion or pneumothorax. IMPRESSION: No evidence of pneumoni a or congestive failure is seen. at 0930 Reported and signed by: Vivek Amezcua M.D. CC: Stone Gilman MD; Saleem foster MD; Jose Miguel Vanessa MD Technologist: RT Miguel(R) Trnscrd Date/Time/By: 01/07/2020 (929) : By: Estella rojas D/T: S: 01/07/2020 (8967) PAGE 1 Signed Report - CT ABD PELVIS W/O CONT 2020-01-06 23:41:00 Name: CARMEN CH [facility] [place] : 1935 Age/S: 84 / M [address] [place] [address] Blvd Unit #: [id number] Loc: [place] [address] Phys: Matias Scott MD Acct: [id number] Dis Date: Status: REG ER PHONE #: [phone] Exam Date: 01/06/20202322 FAX #: [phone] Reason: LEFT CVA TENDERNESS, EVALUATE FOR PYELONEPHRITI EXAMS: CPT CODE: [id number] CT ABD PELVIS W/O CONT 70515 STUDY: - CT ABD PELVIS W/O CONT 01/06/2020 10:15 PM Ordering Physician: Matias Scott MD Patient Name: CARMEN CH MR: [id number] : 1935; Age: 84 years y/o Male Clinical Indication: LEFT CVA TENDERNESS, EVALUATE FOR PYELONEPHRITIS Comparison: 03/21/2017 TECHNIQUE: Multiple contiguous noncontrast transaxial CT images were obtained through the abdomen and pelvis. Sagittal and coronal reformatted images were prepared. CT imaging performed at this location utilizes radiation dose optimization techniques which include one or more of the following: -Automated exposure control -Adjustment of the mA and/or kV according to patient size -Use of iterative reconstruction technique CT Radiation Dose DLP: 598.46 mGy-cm CT ABDOMEN AND PELVIS WITHOUT CONTRAST: VISUALIZED LUNG BASES: Mild cardiomegaly status post aortic valve replacement. Mild bilateral basilar fibrotic changes. BOWEL GAS: Mild to moderate constipation greatest in the right hemicolon. APPENDIX: Normal appendix without inflammatory change. STOMACH: Under distended appropriately thick-walled. Appropriately thick-walled stomach. PERITONEUM AND MESENTERY: Free Air: No evidence of pneumoperitoneum. Free Fluid: No evidence of significant free fluid, loculated fluid, peripherally enhancing abscess, or hemorrhage. Mesenteric and peritoneal fat: Normal without focal lesion or inflammation. LYMPH NODES: Scattered subcentimeter central mesenteric and PAGE 1 Signed Report (CONTINUED) Name: CARMEN CH : 1935 Age/S: 84 / M [address] [place] [address] Unit #: [id number] Loc: [place] [address] Phys: Matias Scott MD Acct: [id number] Dis Date: Status: REG ER PHONE #: [phone] Exam Date: 01/06/2020 232 FAX #: [phone] Reason: LEFT CVA TENDERNESS, EVALUATE FOR PYELONEPHRITI EXAMS: CPT CODE: [id number] CT ABD PELVIS W/O CONT 77558 <Continued> retroperitoneal lymph nodes without lymphadenopathy or mass. VASCULAR: Abdominal Aorta: Normal caliber nonenhanced mildly atheroscle rotic abdominal aorta. IVC: Normal caliber nonenhanced containing IV C filter. ABDOMINAL ORGANS: Liver: Normal size nonen hanced liver containing low-attenuation lesions consistent with cysts rang ing from subcentimeter to 2.9 cm similar to the prior examination. Gallbladder: Multiple small calcified gallstones without inflammation. Biliary Tree: Normal without dilatation. Kidneys: Mild bilateral renal cortical atrophy without nephrolithiasis or focal lesion on these nonenhanced images. Mild to moderate left hydronephrosis seconda ry to a couple of immediately adjacent calculi in the left mid ureter filipe uring 3.6 mm and 1.1 mm. Adrenal Glands: Normal nonenhanced withou t discrete lesion. Pancreas: Normal nonenhanced without discrete l esion. Spleen: Normal nonenhanced without discrete lesion. PELVIC ORGANS: Urinary bladder: Under distended thi ck-walled urinary bladder. Small phleboliths are seen posteriorly to the base of the urinary bladder. Reproductive organs: No organomegaly or mass lesions. SOFT TISSUES: No suspicious soft tissue lesion or abnormality. OSSEOUS STRUCTURES: No fracture, dislocation, or katie picious focal osseous lesion. Mild lumbar spondylosis and facet arthrosis IMPRESSION: PAGE 2 Signed Report (CONTINUED) Name: CARMEN CH : 1935 Age/S: 84 / M [address] [place] [address] Unit #: [id number] Loc: [place] [address] Phys: Matias Scott MD Acct: [id number] Dis Date: Status: REG ER PHONE #: [phone] Exam Date: 01/06/2020 2323 FAX #: [phone] Reason: LEFT CVA TENDERNESS, EVALUATE FOR PYELONEPHRITI EXAMS: CPT CODE: [id number] CT ABD PELVIS W/O CONT 90998 <Continued> Mild to moderate left hydronephrosis secondary to a couple of immediately adjacent left ureteral calculi in the left mid ureter measuring 3.6 mm and 1.1 mm. Cholelithiasis. Stable small variable size hepatic cysts. Mild to moderate constipation. Mild cardiomegaly status post aortic valve replacement. SL: TPAINTER-H at 2341 Reported and signed by: Mikel Ramos M.D. CC: Jose Miguel Vanessa MD; Matias Scott MD Technologist:Adam Espinoza RT(R)(CT) CTDI: DLP: Trnscb Date/Time: 01/06/2020 (234) t.SDR.TP6 Orig Print D/T: S: 01/06/2020 (2787) PAGE 3 Signed Report UA RFLX MICR CULT IF INDICATED 2020-01-06 23:30:00* Test Item Value Reference Range Interpretation Comments UA COLOR (test code = COLU) YELLOW YEL/STRAW UA APPEARANCE (test code = APPU) SL CLOUDY CLEAR UA GLUCOSE DIPSTICK (test code = DGLUU) NEGATIVE NEGATIVE UA BILIRUBIN DIPSTICK (test code = BILU) NEGATIVE NEGATIVE UA KETONE DIPSTICK (test code = KETU) NEGATIVE NEGATIVE UA SPECIFIC GRAVITY (test code = SGU) 1.011 1.005-1.030 N UA BLOOD DIPSTICK (test code = ELEANOR) 3+ NEGATIVE A UA PH DIPSTICK (test code = CB) 6.0 5.0-7.0 N UA PROTEIN DIPSTICK (test code = PROU) 1+ NEGATIVE A UA UROBILINIOGEN DIPSTICK (test code = URO) 0.2 mg/dL 0.2-1.0 UA NITRITE DIPSTICK (test code = KASANDRA) NEGATIVE NEGATIVE UA LEUKOCYTE ESTERASE DIPSTICK (test code = LEUU) NEGATIVE NEGA TIVE UA WBC (test code = WBCU) 21-50 WBC/HPF 0-3 A UA RBC (test code = RBCU) >50 RBC/HPF 0-3 A UA WBC NO REFLEX (test code = WBCUCL) 21-50 WBC/HPF 0-3 A UA BACTERIA (test code = BACU) NONE SEEN /HPF NONE SEEN UA SQUAMOUS CELLS (test code = SQU) NONE SEEN /HPF NONE SEEN UA MUCUS (test code = MUCU) 1+ /LPF NONE SEEN Indication for culture: Flank PainSpecimen Description: CLEAN CATCH COMPREHENSIVE METABOLIC [id number] 23:10:00* Test Item Value Reference Range Interpretation Comments SODIUM (test code = NA) mEq/L 134-147 POTASSIUM (test code = K) mEq/L 3.4-5.0 CHLORIDE (test code = CL) mEq/L 100-108 CARBON DIOXIDE (test code = CO2) mEq/L 21-33 ANION GAP (test code = GAP) 0-20 GLUCOSE (test code = GLU) mg/dL 70-110 BLOOD UREA NITROGEN (test code = BUN) mg/dL 7-18 GLOMERULAR FILTRATION RATE (test code = GFR) 70-80 CREATININE (test code = CREAT) mg/dL 0.6-1.3 TOTAL PROTEIN (test code = PROT) g/dL 6.4-8.2 ALBUMIN (test code = ALB) g/dL 3.4-5.0 CALCIUM (test code = CA) mg/dL 8.0-10.5 BILIRUBIN TOTAL (test code = BILT) MG/DL <1.5 SGOT/AST (test code = AST) IUnit/L 15-37 SGPT/ALT (test code = ALT) IUnit/L 15-65 ALKALINE PHOSPHATASE TOTAL (test code = ALKP) IUnit/L 20-125 [id number] 23:10:00* Test Item Value Reference Range Interpretation Comments LIPASE (test code = LIP) IUnit/L 73-393 [id number] 23:10:00* Test Item Value Reference Range Interpretation Comments TROPONIN-I (test code = TROPI) < 0.015 ng/mL 0.000-0.045 N Negative: <= 0.045 Positive: >= 0.046 Correlation with serial results, other cardiac markers andclinical findings is necessary to determine the clinicalsignificance of this result. Results using different methodologies should not be comparedto one another as quantitative results may vary by method. COMPREHENSIVE METABOLIC [id number] 23:10:00* Test Item Value Reference Range Interpretation Comments SODIUM (test code = NA) 139 mEq/L 134-147 N POTASSIUM (test code = K) 3.6 mEq/L 3.4-5.0 N CHLORIDE (test code = CL) 108 mEq/L 100-108 N CARBON DIOXIDE (test code = CO2) 25 mEq/L 21-33 N ANION GAP (test code = GAP) 10 0-20 N GLUCOSE (test code = GLU) 131 mg/dL 70-110 H BLOOD UREA NITROGEN (test code = BUN) 13 mg/dL 7-18 N GLOMERULAR FILTRATION RATE (test code = GFR) 92.1 70-80 H Units of measure = ml/min/1.73 m2 CREATININE (test code = CREAT) 0.8 mg/dL 0.6-1.3 N TOTAL PROTEIN (test code = PROT) 7.0 g/dL 6.4-8.2 N ALBUMIN (test code = ALB) 3.90 g/dL 3.4-5.0 N CALCIUM (test code = CA) 9.8 mg/dL 8.0-10.5 N BILIRUBIN TOTAL (test code = BILT) 0.5 MG/DL <1.5 N SGOT/AST (test code = AST) 13 IUnit/L 15-37 L SGPT/ALT (test code = ALT) 20 IUnit/L 15-65 N ALKALINE PHOSPHATASE TOTAL (test code = ALKP) 57 IUnit/L 20-125 N [id number] 23:10:00* Test Item Value Reference Range Interpretation Comments LIPASE (test code = LIP) 75 IUnit/L 73-393 N [id number] 23:10:00* Test Item Value Reference Range Interpretation Comments TROPONIN-I (test code = TROPI) < 0.015 ng/mL 0.000-0.045 N Negative: <= 0.045 Positive: >= 0.046 Correlation with serial results, other cardiac markers andclinical findings is necessary to determine the clinicalsignificance of this result. Results using different methodologies should not be comparedto one another as quantitative results may vary by method. LACTIC [id number] 23:08:00* Test Item Value Reference Range Interpretation Comments LACTIC ACID (test code = LACT) 1.6 mmol/L 0.4-1.9 N CBC W/AUTO [id number] 23:02:00* Test Item Value Reference Range Interpretation Comments WHITE BLOOD CELL (test code = WBC) 7.25 x10 3/uL 4.5-11.0 N RED BLOOD CELL (test code = RBC) 4.18 x10 6/uL 4.00-5.60 N HEMOGLOBIN (test code = HGB) 12.3 g/dL 12.5-16.9 L HEMATOCRIT (test code = HCT) 39.0 % 37.5-50.7 N MEAN CELL VOLUME (test code = MCV) 93.3 fL 81.0-99.0 N MEAN CELL HGB (test code = MCH) 29.4 pg 27.0-33.0 N MEAN CELL HGB CONCETRATION (test code = MCHC) 31.5 g/dL 33.0-37. 0 L RED CELL DISTRIBUTION WIDTH CV (test code = RDW) 12.4 % 11.5- 14.5 N RED CELL DISTRIBUTION WIDTH SD (test code = RDW-SD) 42.8 fL 37 .0-54.0 N PLATELET COUNT (test code = PLT) 225 x10 3/uL 150-400 N MEAN PLATELET VOLUME (test code = MPV) 9.3 fL 7.0-9.0 H NEUTROPHIL % (test code = NT%) 66.0 % 56.0-77.0 N IMMATURE GRANULOCYTE % (test code = IG%) 0.6 % 0.0-2.0 N LYMPHOCYTE % (test code = LY%) 21.4 % 14.0-32.0 N MONOCYTE % (test code = MO%) 8.4 % 4.8-9.0 N EOSINOPHIL % (test code = EO%) 2.5 % 0.3-3.7 N BASOPHIL % (test code = BA%) 1.1 % 0.0-2.0 N NUCLEATED RBC % (test code = NRBC%) 0.0 % 0-0 N NEUTROPHIL # (test code = NT#) 4.79 x10 3/uL 2.0-7.6 N IMMATURE GRANULOCYTE # (test code = IG#) 0.04 x10 3/uL 0.00-0.03 H LYMPHOCYTE # (test code = LY#) 1.55 x10 3/uL 1.0-3.8 N MONOCYTE # (test code = MO#) 0.61 x10 3/uL 0.1-0.8 N EOSINOPHIL # (test code = EO#) 0.18 x10 3/uL 0.0-0.2 N BASOPHIL # (test code = BA#) 0.08 x10 3/uL 0.0-0.2 N NUCLEATED RBC # (test code = NRBC#) 0.00 x10 3/uL 0.0-0.1 N MANUAL DIFF REQUIRED (test code = MDIFF) NO Bacteria identified in Urine by [id number] 07:15:00* Test Item Value Reference Range Interpretation Comments culture, urine, routine (test code = culture, urine, routine) [facility] [id number] 07:15:00* Test Item Value Reference Range Interpretation Comments culture, urine, routine (test code = culture, urine, routine) [facility] n [facility] (dipstick) panel - [id number] 12:11:00* Test Item Value Reference Range Interpretation Comments Color Color (test code = Color Color) bloody Color Appearance (test code = Color Appearance) turbid Color Glucose (test code = Color Glucose) negative Color Bilirubin (test code = Color Bilirubin) large Color Ketones (test code = Color Ketones) small Color Specific [place] (test code = Color Specific [place]) 1.025 Color Blood (test code = Color Blood) large Color PH (test code = Color PH) 5.5 Color Protein (test code = Color Protein) 300 Color Urobilinogen (test code = Color Urobilinogen) 2 Color Nitrites (test code = Color Nitrites) negative Color Leukocytes (test code = Color Leukocytes) large [facility] - [id number] 12:11:00* Test Item Value Reference Range Interpretation Comments Color Color (test code = Color Color) bloody Color Appearance (test code = Color Appearance) turbid Color Glucose (test code = Color Glucose) negative Color Bilirubin (test code = Color Bilirubin) large Color Ketones (test code = Color Ketones) small Color Specific [place] (test code = Color Specific [place]) 1.025 Color Blood (test code = Color Blood) large Color PH (test code = Color PH) 5.5 Color Protein (test code = Color Protein) 300 Color Urobilinogen (test code = Color Urobilinogen) 2 Color Nitrites (test code = Color Nitrites) negative Color Leukocytes (test code = Color Leukocytes) [facility] - [id number] 12:11:00* Test Item Value Reference Range Interpretation Comments Color Color (test code = Color Color) bloody Color Appearance (test code = Color Appearance) turbid Color Glucose (test code = Color Glucose) negative Color Bilirubin (test code = Color Bilirubin) large Color Ketones (test code = Color Ketones) small Color Specific [place] (test code = Color Specific [place]) 1.025 Color Blood (test code = Color Blood) large Color PH (test code = Color PH) 5.5 Color Protein (test code = Color Protein) 300 Color Urobilinogen (test code = Color Urobilinogen) 2 Color Nitrites (test code = Color Nitrites) negative Color Leukocytes (test code = Color Leukocytes) [facility] - Serum or [id number] 00:00:00* Test Item Value Reference Range Interpretation Comments Cholesterol [Mass/volume] in Serum or Plasma (test code = 20 93-3) 211 mg/dL <200 H Cholesterol in HDL [Mass/volume] in Serum or Plasma (t est code = 2085-9) 48 mg/dL >40 Triglyceride [Mass/volume] in Serum or Plasma (test code = 2 571-8) 213 mg/dL <150 H Cholesterol in LDL [Mass/volume] in Seru m or Plasma by calculation (test code = 42884-5) 128 mg/dL (calc) H Cholesterol.total/Cholesterol.in HDL [Ma ss ratio] in Serum or Plasma (test code = 9830-1) 4.4 (calc) <5.0 Cholesterol non HDL [Mass/volume] in Serum or Plasma ( test code = 93360-1) 163 mg/dL (calc) <130 H copy(ies) sent to: (test code = copy(ies) sent to:) [facility]Creat[facility] [Mass Ratio] in [id number] 00:00:00* Test Item Value Reference Range Interpretation Comments Creatinine [Mass/volume] in Urine (test code = 2161-8) 359 mg/dL 20-320 H Microalbumin [Mass/volume] in Urine (test code = 04215-0) 8.8 mg/dL see note: Albumin/Creatinine [Mass ratio] in Urine (test code = 9318-7 ) 25 mcg/mg creat <30 copy(ies) sent to: (test code = copy(ies) sent to:) [facility]Com[facility] 2000 [facility] - Serum or Plasma 2019-06-06 00:00:00* Test Item Value Reference Range Interpretation Comments Glucose [Mass/volume] in Serum or Plasma (test code = 2345-7) 189 m g/dL 65-99 H Urea nitrogen [Mass/volume] in Serum or Plasma (test code = 3094-0) 17 mg/dL 7-25 Creatinine [Mass/volume] in Serum or Plasma (test code = 216 0-0) 0.86 mg/dL 0.70-1.11 eGFR non-afr. guinean (test code = eGFR non-afr. guinean) 80 mL/min/1.73m2 > or = 60 Glomerular filtration rate/1.73 sq M pre dicted among blacks by Creatinine-based formula (MDRD) (test code = 38888-4) 93 mL/min/1.73m2 > or = 60 Urea nitrogen/Creatinine [Mass Ratio] in Serum or Plas ma (test code = 3097-3) not applicable 6-22 Sodium [Moles/volume] in Serum or Plasma (test code = 2951-2 ) 139 mmol/L 135-146 Potassium [Moles/volume] in Serum or Plasma (test code = 282 3-3) 4.2 mmol/L 3.5-5.3 Chloride [Moles/volume] in Serum or Plasma (test code = 2075 -0) 104 mmol/L 98-110 Carbon dioxide, total [Moles/volume] in Serum or Plasm a (test code = 2027-9) 28 mmol/L 20-32 Calcium [Mass/volume] in Serum or Plasma (test code = 71778- 6) 10.1 mg/dL 8.6-10.3 Protein [Mass/volume] in Serum or Plasma (test code = 2885-2) 6. 2 g/dL 6.1-8.1 Albumin [Mass/volume] in Serum or Plasma (test code = 1751-7) 4. 0 g/dL 3.6-5.1 Globulin [Mass/volume] in Serum by calculation (test c ode = 34077-9) 2.2 g/dL (calc) 1.9-3.7 Albumin/Globulin [Mass Ratio] in Serum or Plasma (test code = 1759-0) 1.8 (calc) 1.0-2.5 Bilirubin.total [Mass/volume] in Serum or Plasma (test code = 1975-2) 0.5 mg/dL 0.2-1.2 Alkaline phosphatase [Enzymatic activity /volume] in Serum or Plasma (test code = 6768-6) 53 U/L 40-115 Aspartate aminotransferase [Enzymatic ac tivity/volume] in Serum or Plasma (test code = 1920-8) 10 U/L 10-35 Alanine aminotransferase [Enzymatic acti vity/volume] in Serum or Plasma (test code = 1742-6) 6 U/L 9-46 L copy(ies) sent to: (test code = copy(ies) sent to:) [facility]Hemoglobin A1c/Hemoglobin.total in [id number] 00:00:00* Test Item Value Reference Range Interpretation Comments Hemoglobin A1c/Hemoglobin.total in Blood (test code = 4548-4) 5.7 % of total HGB <5.7 H copy(ies) sent to: (test code = copy(ies) sent to:) [facility]
[2020-06-27] MEDS ORDERED: TETANUS/DIPHTHERIA TOX ADULT 0.5 ML SYR IM ONE (11:15)
--- NOTE | 2020-06-27 11:18 | Diagnostic Imaging Report ---
CT BRAIN WO, CT CERVICAL SPINE WO HISTORY: Trauma COMPARISON: None. TECHNIQUE: Axial noncontrast CT images were obtained through the head and cervical spine. Coronal and sagittal reconstructions obtained from the axial data. One or more of the following dose reduction techniques were used: Automated exposure control, adjustment of the mA and/or kV according to patient size, and/or utilization of iterative reconstruction technique. DISCUSSION: HEAD CT: Scalp/Skull: Unremarkable. Brain sulci: Prominent. Ventricles: Compensatory dilatation. Extra-axial spaces: There may be a small arachnoid cyst in the left middle cranial fossa. No other masses or fluid collections. Carotid siphon calcifications are present. Parenchyma: Mild periventricular white matter hypodensities are likely chronic microvascular ischemic changes. Otherwise, no masses, hemorrhage, or large vascular territory acute infarct. Dural sinuses: No abnormal densities. Sellar/Suprasellar region: Intact. Skull base: Intact. Incidental findings: None. CERVICAL SPINE CT: Cervical lordosis is straightened. There is no significant scoliosis. Mild bone demineralization limits evaluation. No definite acute fracture or compression deformity is seen. The craniocervical junction is intact. No gross spinal canal masses are seen. The paravertebral and paraspinal soft tissues are unremarkable. Degenerative changes: Multilevel advanced spondylosis and prominent bilateral facet arthrosis are present. There is associated minimal grade 1 anterolisthesis of C7 on T1 and T1 on T2. Incidental findings: The right submandibular gland is mildly atrophic. Mild to moderate bilateral carotid bulb calcified plaque is present. IMPRESSION: Head CT: 1. No acute intracranial abnormalities. 2. Generalized cerebral volume loss. Mild supratentorial chronic microvascular ischemic change. Cervical Spine CT: 1. Mild diffuse bone demineralization limits evaluation. No definite acute osseous abnormalities in the cervical spine. 2. Multilevel advanced degenerative changes. Signed by: Dr. Josué Gill M.D. on 06/27/2020 11:15 AM
--- NOTE | 2020-06-27 11:56 | NUR ---
requested transport from EMS
== END 2020-06-27 13:36 | disposition home or self-care (01) ==
LOC: ER 10:23
DX: S00.83XA Contusion of other part of head, initial encounter (principal); S61.412A Laceration without foreign body of left hand, initial encounter; W07.XXXA Fall from chair, initial encounter; Y92.008 Other place in unspecified non-institutional (private) residence as the place of occurrence of the external cause; F03.90 Unspecified dementia, unspecified severity, without behavioral disturbance, psychotic disturbance, mood disturbance, and anxiety
CPT/HCPCS: 70450; 72125; 99283